=== PATIENT | female | born 1940 | race Caucasian/White ===

== ENCOUNTER 2018-04-07 12:24 | Outpatient (CLI) | payer MEDICARE, OTHER ==
--- NOTE | 2018-04-07 13:58 | NM ---
VQ SCAN: HISTORY: Shortness of breath. TECHNIQUE: Ventilation/perfusion scan was performed using 25.8 mCi Xenon-133 by inhalation for the ventilation s tudy followed by the intravenous administration of 6.6 mCi technetium-99m MAA for the perfusion scan. FINDINGS: Fairly homogeneous tracer distribution is seen in the lungs bilaterally on ventilation and perfusion scans. No mismatched pleural based, wedge shaped, segmental/subsegmental perfusion defects are seen. There is mild tracer retention and washout phase of the ventilation exam. IMPRESSION: Very low probability for pulmonary embolism. POS: [facility]
--- NOTE | 2018-04-07 14:26 | RAD ---
PA AND LATERAL VIEWS CHEST: Date: 04/07/18 HISTORY: Shortness of breath. FINDINGS: The heart size is mildly enlarged. The aorta is tortuous and the lungs are expanded without lobar con solidation, pneumothorax, gulshan pulmonary edema, or pleural effusions. Bones are osteopenic. IMPRESSION: Mild cardiomegaly. POS: [facility]
== END 2018-04-07 12:25 | disposition home or self-care (01) ==
LOC: NM 12:24
PROVIDERS: ATTEND Internal Medicine Cardiovascular Disease
DX: R06.02 Shortness of breath (principal); I51.7 Cardiomegaly
CPT/HCPCS: 71046; 78582; A9540; A9558

== ENCOUNTER 2018-04-18 22:26 | Inpatient (IN) | payer MEDICARE, OTHER ==
--- NOTE | 2018-04-18 23:09 | RAD ---
PORTABLE CHEST: 04/18/18 HISTORY: Dyspnea. Heart size appears slightly enlarged. There are atherosclerotic changes of the aorta. The lungs show some chronic change. No focal infiltrates or failure. Old right humeral neck fracture is noted. IMPRESSION: Cardiomegaly. No acute findings. POS: [facility]
[2018-04-18 23:17] LABS: Hemoglobin 12.1 g/dL (12.0-16.0); Lymphocytes 14 % (21-51); MDiff Complete? YES; Mean Corpuscular Hemoglobin 31.1 pg (27.0-31.0); Mean Corpuscular Volume 94.2 fL (78.0-98.0); Mean Platelet Volume 10.6 fL (7.4-10.4); Monocytes 6 % (0-10); Neutrophil 80 % (42-75); PLT Morphology Comment Appears Decreased; Platelet Count 116 thou/uL (130-400); RBC Distribution Width 12.8 % (11.5-14.5); RBC Morphology Normal; Red Blood Cell (RBC) Count 3.89 mill/uL (4.20-5.40); White Blood Cell (WBC) Count 10.4 thou/uL (4.8-10.8)
[2018-04-18 23:21] LABS: ALT (SGPT) 21 U/L (8-55); AST (SGOT) 35 U/L (5-34); Albumin 3.6 g/dL (3.4-4.8); Alkaline Phosphatase 98 U/L (40-150); Anion Gap 19 mmol/L (10-20); BUN (Urea Nitrogen) 55 mg/dL (9.8-20.1); Bilirubin, Total 2.6 mg/dL (0.2-1.2); Calc. Creatinine Clearance 0 mL/min (70-130); Calcium 9.2 mg/dL (7.8-10.44); Carbon Dioxide 18 mmol/L (23-31); Chloride 95 mmol/L (98-107); Estimated GFR-MDRD 40; Globulin 3.8 g/dL (2.4-3.5); Glucose 121 mg/dL (83-110); Potassium 3.7 mmol/L (3.5-5.1); Protein, Total 7.4 g/dL (6.0-8.3); Sodium 128 mmol/L (136-145)
[2018-04-18 23:24] LABS: CKMB 0.4 ng/mL (0-6.6); Troponin I Less than 0.010 ng/mL (< 0.028)
[2018-04-18] MEDS ORDERED: Acetaminophen 500 MG TAB ONE (23:31)
[2018-04-19] MEDS ORDERED: Azithromycin 500 MG VIAL ONE (00:28)
[2018-04-19] MEDS ORDERED: cefTRIAXone\\ROCEPHIN 1 GM VIAL ONE (00:28)
[2018-04-19 01:40] VITALS: BMI 41.6
[2018-04-19] MEDS ORDERED: Acetaminophen 325 MG TAB PO PRN (01:42)
[2018-04-19 02:49] LABS: Troponin I Less than 0.010 ng/mL (< 0.028)
[2018-04-19] MEDS ORDERED: Furosemide 40 MG TAB PO PRN (04:45)
[2018-04-19] MEDS: Levothyroxine Sodium 125 MCG TAB PO SCH (06:11)
[2018-04-19 06:12] LABS: Albumin 3.3 g/dL (3.4-4.8); Anion Gap 15 mmol/L (10-20); BUN (Urea Nitrogen) 51 mg/dL (9.8-20.1); BUN/Creatinine Ratio 42.15; Calc. Creatinine Clearance 65 mL/min (70-130); Calcium 8.8 mg/dL (7.8-10.44); Carbon Dioxide 22 mmol/L (23-31); Chloride 97 mmol/L (98-107); Estimated GFR-MDRD 43; Glucose 112 mg/dL (83-110); Phosphorus 3.4 mg/dL (2.3-4.7); Potassium 3.1 mmol/L (3.5-5.1); Sodium 131 mmol/L (136-145)
[2018-04-19 06:16] LABS: Troponin I Less than 0.010 ng/mL (< 0.028)
[2018-04-19] MEDS: Aspirin 81 mg Enteric Coated Tablet PO SCH (08:16)
[2018-04-19] MEDS: FLUoxetine HCl 20 MG CAP PO SCH (08:16)
[2018-04-19] MEDS: Amlodipine 10 MG TAB PO SCH (08:16)
[2018-04-19] MEDS: Atorvastatin Calcium 20 MG TAB PO SCH (08:16)
[2018-04-19] MEDS: Carvedilol 6.25 MG TAB PO SCH ×2 (08:17→19:48)
[2018-04-19] MEDS ORDERED: Famotidine/PF 20 mg/2ml Vial SLOW IVP SCH (09:00)
[2018-04-19] MEDS: Sodium Chloride 0.9% 1,000 ML IV SCH (12:42)
--- NOTE | 2018-04-19 15:51 | HP ---
REASON FOR ADMISSION: Severe dehydration, acute kidney injury, hyponatremia, hypokalemia, metabolic acidosis. HISTORY OF PRESENT ILLNESS: The patient gives a history of having watery diarrhea, nearly 6-7 times for 3 days, which started around last Saturday. Subsequently, the patient lost her appetite and also d eveloped fever and generalized weakness. She normally ambulates by herself, which she was not able t o do. As patient got very weak, she was brought to the emergency room by her . Currently, holcomb s no abdominal pain, nausea, or vomiting. The patient states she has not had a bowel movement after . The patient has not had much intake as well. No complaints of chest pain, palpitation, PN D, or orthopnea. Currently, had a fever of 99.7 degrees Fahrenheit. The patient has had a stress test done [address] Carrera's office, which was negative. Emily reyes has had a recent V/Q scan done in the first 10 days of this month, which showed low probability for PE. PAST MEDICAL AND SURGICAL HISTORY: Hypertension, dyslipidemia, depression, hypothyroidism, appendect armani, tonsillectomy, left breast biopsy. CURRENT MEDICATIONS: The patient is on valsartan 320 mg p.o. daily, atorvastatin 20 mg daily, carved ilol 12.5 mg twice daily, aspirin 81 mg daily, Nexium 40 mg daily, Norvasc 10 mg daily, fluoxetine 20 mg daily, levothyroxine 125 mcg daily, Lasix 40 mg daily. ALLERGIES: No known drug allergies. PERSONAL HISTORY: Does not abuse alcohol or drugs. No history of smoking. FAMILY HISTORY: Mother at the age of 56 years due to postop infection. Father at the age of 75 years. He has had history of likely prostate cancer with bone mets. He had a brother, who d of a stroke and had coronary artery disease at the age of 65 years. CODE STATUS: FULL. Power of compliance counsel is her . REVIEW OF SYSTEMS: The following complete review of systems was negative, unless otherwise mentioned in the HPI or below: Constitutional: Weight loss or gain, ability to conduct usual activities. Sk in: Rash, itching. Eyes: Double vision, pain. ENT/Mouth: Nose bleeding, neck stiffness, pain, te nderness. Cardiovascular: Palpitations, dyspnea on exertion, orthopnea. Respiratory: Shortness of breath, wheezing, cough, hemoptysis, fever, or night sweats. Gastrointestinal: Poor appetite, abdo bandar pain, heartburn, nausea, vomiting, constipation, or diarrhea. Genitourinary: Urgency, frequen cy, dysuria, nocturia. Musculoskeletal: Pain, swelling. Neurologic/Psychiatric: Anxiety, depressi on. Allergy/Immunologic: Skin rash, bleeding tendency. PHYSICAL EXAMINATION: GENERAL: The patient is a 77-year-old female, who currently feels exhausted, otherwise she is not in any acute distress. VITAL SIGNS: Blood pressure 146/64, pulse 80 per minute, respiratory rate is 20 per minute, temperat ure 99.1 degrees Fahrenheit, saturating 97% on 2 liters nasal cannula. NECK: Supple, no elevated JVD. HEENT: Eyes: Extraocular muscles intact. Pupils reacting to light. Oral Cavity: Mucous membranes are dry. No exudates or congestion. CARDIOVASCULAR SYSTEM: S1 and S2 heard. Regular rhythm. RESPIRATORY SYSTEM: Air entry 1+ bilaterally. No rales or rhonchi. ABDOMEN: Soft, bowel sounds heard. No tenderness, rigidity, or guarding. EXTREMITIES: No peripheral edema or calf tenderness. VASCULAR SYSTEM: Peripheral pulses 1+ bilateral, no ischemic ulcerations or gangrene. CENTRAL NERVOUS SYSTEM: No gross focal deficits noted. Patient is alert and oriented well at [facility]. PSYCHIATRIC SYSTEM: The patient's mood is euthymic. No hallucinations or delusions. LABORATORY AND X-RAY FINDINGS: White count of 10, H and H 12 and 36, platelet count is 116 with 80% neutrophils. Sodium 128, serum bicarbonate 18, BUN 55, creatinine 1.3, serum glucose 121, total bili hamilton 2.6, AST 35, ALT 21. Troponin x2 is negative. CK-MB 0.4. BNP 73, albumin is 3.6. Chest x-ra y done shows cardiomegaly with no acute infiltrate. EKG done shows bifascicular block with normal sinus rhythm at 93 beats per minute. There is Q-wave s een in lead II, III, AVF. CLINICAL IMPRESSION AND PLAN: The patient will be under observation on telemetry for severe dehydrat ion, acute kidney injury, hyponatremia, metabolic acidosis. She will be gently hydrated with normal saline at 75 mL per hour. We will continue on Norvasc, aspirin, Lipitor, Coreg, Prozac, Synthroid as before. CT of the abdomen and pelvis will be obtained. If needed, a right upper quadrant ultrasoun d will be obtained in view of patient's ongoing fever. Blood cultures will be obtained as well. We will obtain an echo with 2D Doppler for LV function. I have given complete updates to patient and he r son, Dr. Meadows, as well. We will continue to closely monitor her on telemetry.
--- NOTE | 2018-04-19 16:01 | CT ---
NONCONTRAST CT ABDOMEN AND PELVIS 04/19/18 HISTORY: Recent diarrhea. Renal insufficiency. Generalized abdominal pain. History of appendicectomy. COMPARISON: None available. FINDINGS: There is bibasilar atelectasis and/or scarring. Small hiatal hernia is noted. Vascular calcifications are present within the abdominal aorta and involving the iliac arteries. Calc ified granuloma is seen in the spleen. Increased density is seen layering dependently within the gallbladder lumen which may be related to m ultiple gallbladder calculi and/or sludge. There is a small amount of fluid adjacent to the gallbladd er as well. No definite renal or ureteral calculi are seen bilaterally. There is bilateral perinephric stranding slightly asymmetrically greater on the left which is overall nonspecific. There is also periureteral stranding present on the left. While there are calcifications seen adjacent to the left ureter, these calcifications are felt to be vascular in origin and not related to ureteral calculi. There is no hy dronephrosis present. The pancreas, bilateral adrenal glands, incompletely imaged urinary bladder demonstrate a normal CT a ppearance. The uterus is small in size. A 4.3 cm right adnexal cystic structure is present which on noncontraste d imaging does demonstrate fluid attenuation and may represent an ovarian cyst. The opacified bowel is normal in caliber. There is colonic diverticulosis probably involving the descending and sigmoid colon without CT findin gs to suggest diverticulitis. IMPRESSION: 1. No renal or ureteral calculi are visualized, and there is no hydronephrosis. However, there i s slightly asymmetric left perinephric stranding as well as stranding along the course of the left ur eter. Infection on the left related to pyelonephritis cannot be entirely excluded. 2. Right adnexal cystic lesion measuring 4.3 cm. This does demonstrate fluid attenuation. 3. Bibasilar atelectasis. 4. Colonic diverticulosis. 5. Compression fracture superior end plate L1 vertebral body stable since chest x-ray in 2017. 6. Small fat containing umbilical hernia. POS: [facility]
[2018-04-19] MEDS: Cefepime 1 GM in Sodium Chloride 0.9% 100 ML IVPB SCH (17:50)
[2018-04-20] MEDS: Sodium Chloride 0.9% 1,000 ML IV SCH ×2 (03:47→14:36)
[2018-04-20] MEDS: Levothyroxine Sodium 125 MCG TAB PO SCH (05:03)
[2018-04-20] MEDS: Cefepime 1 GM in Sodium Chloride 0.9% 100 ML IVPB SCH ×2 (05:04→17:53)
--- NOTE | 2018-04-20 08:04 | ULT ---
ABDOMINAL ULTRASOUND: DATE: 04/20/18. HISTORY: Recurrent diarrhea, generalized abdominal pain for 3 days[address] Ren[address] insufficiency. Abnormal CT examina tion involving the gallbladder. COMPARISON: CT abdomen on 04/19/18. FINDINGS: There is echogenic material layering dependently within the gallbladder lumen. No shadowing is appre ciated, and findings may b related to gallbladder sludge. There is evidence of gallbladder wall thic kening with gallbladder wall edema. The gallbladder wall measures 0.6 cm in thickness. There is a s mall amount of adjacent pericholecystic fluid. The common duct measures 0.6 cm in diameter, which is within normal limits for the patient's age. The liver demonstrates normal sonographic appearance but is enlarged in craniocaudal dimensions measu ring 26 cm. Visualized portions of the pancreas, visualized portions of the IVC, and proximal as wel l as mid abdominal aorta demonstrating normal sonographic appearance. The distal abdominal aorta is obscured by bowel gas. The spleen is enlarged in craniocaudal dimensions measuring 15.5 cm. This was also present on the CT examination, although the spleen does not appear enlarged in AP or transverse dimensions. The left kidney measures 14.6 cm in length. There is an echogenic mass seen with the junction in the mid portion and superior pole of the left kidney. There is a suggestion of a subtle hypodense area within this region on the CT exam. CT following renal mass protocol is recommended for further evalu ation. The right kidney demonstrates a normal sonographic appearance and measures 13.7 cm in length. IMPRESSION: 1. Echogenic left renal mass. No fat density mass is seen on the recent CT scan examination, but th ere is a subtle hypodense area within the left kidney on the prior CT exam. Neoplastic process could not be entirely excluded, and a CT abdomen with and without IV contrast is recommended for further e valuation. However, if the patient has renal insufficiency, MRI without IV contrast may be beneficia l, although contrast may be warranted for accurate characterization. 2. Gallbladder sludge as well as gallbladder wall thickening and edematous gallbladder wall with adj acent tiny amount of pericholecystic fluid. Findings are worrisome for cholecystitis in the correct clinical scenario. 3. Hepatosplenomegaly. POS: [facility]
[2018-04-20] MEDS: Amlodipine 10 MG TAB PO SCH (08:42)
[2018-04-20] MEDS: Carvedilol 6.25 MG TAB PO SCH ×2 (08:43→20:27)
[2018-04-20] MEDS: Atorvastatin Calcium 20 MG TAB PO SCH (08:43)
[2018-04-20] MEDS: Aspirin 81 mg Enteric Coated Tablet PO SCH (08:43)
[2018-04-20] MEDS: FLUoxetine HCl 20 MG CAP PO SCH (08:43)
--- NOTE | 2018-04-20 12:42 | PDOC.PN ---
- Subjective Encounter Start Date: 04/20/18 Encounter Start Time: 10:30 Subjective: feels better -: has sob which is chronic per patient -: mild abd pain in left loin area - Objective MAR Reviewed: Yes Vital Signs & Weight: Vital Signs (12 hours) Temp Pulse Pulse Pulse Resp BP BP 04/20/18 09:20 78 80 172/74 H 04/20/18 08:44 97.7 F 79 20 04/20/18 08:43 152/67 H 04/20/18 08:42 78 04/20/18 05:27 04/20/18 03:13 98.7 F 78 24 H BP BP Pulse Ox 04/20/18 09:20 188/79 H 04/20/18 08:44 137/64 95 04/20/18 08:43 04/20/18 08:42 04/20/18 05:27 95 04/20/18 03:13 155/69 H 95 Weight Weight 236 lb 3.2 oz I&O: 04/19/18 04/20/18 04/21/18 06:59 06:59 06:59 Intake Total 300 2666 Output Total 600 1600 400 Balance -300 1066 -400 Result Diagrams: 04/18/18 22:37 04/19/18 05:46 Phys Exam - Physical Examination HEENT: PERRLA, moist MMs Neck: no JVD, supple Respiratory: no wheezing, no rales Cardiovascular: RRR, no significant murmur Gastrointestinal: soft, no distention, positive bowel sounds no ruq tenderness, no rigidity or gurarding Musculoskeletal: no edema, pulses present Neurological: non-focal, moves all 4 limbs Psychiatric: normal affect, A&O x 3 Dx/Plan (1) Sepsis Code(s): A41.9 - SEPSIS, UNSPECIFIED ORGANISM Status: Acute (2) Bacteremia Code(s): R78.81 - BACTEREMIA Status: Acute Comment: klebsiella (3) Acute pyelonephritis Code(s): N10 - ACUTE PYELONEPHRITIS Status: Acute Comment: left (4) Acute cholecystitis Code(s): K81.0 - ACUTE CHOLECYSTITIS Status: Acute (5) HTN (hypertension) Code(s): I10 - ESSENTIAL (PRIMARY) HYPERTENSION Status: Chronic Qualifiers: Hypertension type: essential hypertension Qualified Code(s): I10 - Essential (primary) hypertension (6) Obesity Code(s): E66.9 - OBESITY, UNSPECIFIED Status: Chronic Qualifiers: Obesity classification: adult class 3 (BMI >= 40) Body mass index: BMI 40.0 -44.9 (7) LEANA (acute kidney injury) Code(s): N17.9 - ACUTE KIDNEY FAILURE, UNSPECIFIED Status: Acute Comment: resolving (8) Metabolic acidosis Code(s): E87.2 - ACIDOSIS Status: Acute Comment: resolving - Plan is on cefepime and levaquin -: gentle iv hydration -: keep pt npo until evaluates her -: i.spirometry, nebs, pulm consultation in view of possible postop complicati -: -on if she did go for lap nelly with baseline sob/obesity * . Review of Systems - Medications/Allergies Allergies/Adverse Reactions: Allergies Allergy/AdvReac Type Severity Reaction Status Date / Time No Known Allergies Allergy Verified 04/19/18 02:19 Medications: Current Medications Albuterol/Ipratropium (Duoneb) 3 ml NEB [id number] [facility] Amlodipine Besylate (Norvasc) 10 mg PO DAILY [facility] Last Admin: 04/20/18 08:42 Dose: 10 mg Aspirin (Ecotrin) 81 mg PO DAILY [facility] Last Admin: 04/20/18 08:43 Dose: 81 mg Atorvastatin Calcium (Lipitor) 20 mg PO DAILY [facility] Last Admin: 04/20/18 08:43 Dose: 20 mg Carvedilol (Coreg) 12.5 mg PO BID [facility] Last Admin: 04/20/18 08:43 Dose: 12.5 mg Fluoxetine HCl (Prozac) 20 mg PO DAILY [facility] Last Admin: 04/20/18 08:43 Dose: 20 mg Sodium Chloride (Normal Saline 0.9%) 1,000 mls @ 75 mls/hr IV .[id number] [facility] Last Admin: 04/20/18 03:47 Dose: 1,000 mls Cefepime HCl 1 gm/ Sodium (Chloride) 100 mls @ 200 mls/hr IVPB 0600,1800 [facility] Last Admin: 04/20/18 05:04 Dose: 100 mls Levofloxacin 250 mg/ Device 50 mls @ 100 mls/hr IVPB 1700 [facility] Last Admin: 04/19/18 17:08 Dose: 50 mls Levothyroxine Sodium (Synthroid) 125 mcg PO 0600 [facility] Last Admin: 04/20/18 05:03 Dose: 125 mcg Pantoprazole Sodium (Protonix) 40 mg PO DAILY [facility] Last Admin: 04/20/18 08:43 Dose: 40 mg Sodium Chloride (Flush - Normal Saline) 10 ml IVF Q12HR [facility] Last Admin: 04/20/18 08:43 Dose: 10 ml Sodium Chloride (Flush - Normal Saline) 10 ml IVF PRN PRN PRN Reason: Saline Flush
[2018-04-20 13:18] LABS: #Eosinphils 0.1 thou/uL (0.0-0.7); #Lymphocytes 0.9 thou/uL (1.20-3.40); #Neutrophils 7.9 thou/uL (1.40-6.50); %Basophils 0.1 % (0.0-1.0); %Eosinophils 1.2 % (0.0-10.0); %Lymphocytes 9.3 % (21.0-51.0); %Monocytes 10.1 % (0.0-10.0); %Neutrophils 79.2 % (42.0-75.0); Hemoglobin 11.1 g/dL (12.0-16.0); Mean Corpuscular HGB CONC 32.6 g/dL (32.0-36.0); Mean Corpuscular Hemoglobin 31.1 pg (27.0-31.0); Mean Corpuscular Volume 95.3 fL (78.0-98.0); Mean Platelet Volume 10.1 fL (7.4-10.4); Platelet Count 120 thou/uL (130-400); RBC Distribution Width 12.8 % (11.5-14.5); Red Blood Cell (RBC) Count 3.55 mill/uL (4.20-5.40)
[2018-04-20 13:40] LABS: ALT (SGPT) 23 U/L (8-55); AST (SGOT) 25 U/L (5-34); Albumin 3.2 g/dL (3.4-4.8); Alkaline Phosphatase 97 U/L (40-150); Anion Gap 11 mmol/L (10-20); BUN (Urea Nitrogen) 28 mg/dL (9.8-20.1); Bilirubin, Total 1.2 mg/dL (0.2-1.2); Calc. Creatinine Clearance 94 mL/min (70-130); Calcium 8.6 mg/dL (7.8-10.44); Carbon Dioxide 25 mmol/L (23-31); Chloride 102 mmol/L (98-107); Estimated GFR-MDRD 66; Globulin 3.1 g/dL (2.4-3.5); Glucose 124 mg/dL (83-110); Potassium 3.5 mmol/L (3.5-5.1); Protein, Total 6.3 g/dL (6.0-8.3); Sodium 134 mmol/L (136-145)
--- NOTE | 2018-04-20 18:05 | CON ---
DATE OF CONSULTATION: 04/20/2018 REASON FOR CONSULTATION: Bacteremia. HISTORY OF PRESENT ILLNESS: This is a 77-year-old patient, who has a history of hypertension and some form of cardiomyopathy and was in her usual state of health until about 3-4 days before admission when she noticed frequent watery stools with anorexia and fever. Eventually, she became so weak that could not ambulate anymore and was brought for admission. Here, she had a BP 140/60, pulse 80, respirations 20, temperature 99.1, O2 sat 97%. The lung sounds were clear. Abdomen was soft without tenderness. Heart examination was normal. She was awake, looked tired, but otherwise in no acute distress. White cell count 10,000, hemoglobin 12, platelets 116 with 80% neutrophils. Sodium 128, creatinine 1.3, bilirubin 2.6, AST 35, ALT 21, albumin 3.6. Chest x-ray showed cardiomegaly, but no infiltrate. The patient had abdomen and pelvis CT and this demonstrated increased density layering in the gallbladder lumen and a small amount of fluid adjacent to gallbladder as well. There was evidence of bilateral perinephric stranding, slightly asymmetric on the left. No obstruction was noticed. There was a compression fracture at L1 endplate. An ultrasound of the abdomen was completed as well this morning. It showed echogenic left renal mass and some gallbladder sludge, gallbladder wall thickening, and edematous wall with adjacent amount of pericholecystic fluid and some hepatosplenomegaly. Currently, she is feeling better. She denies any headaches, no visual symptoms, sore throat, odynophagia, or dysphagia, no cough or sputum production, no abdominal pain. No genitourinary symptoms. PAST MEDICAL HISTORY: Includes hypertension; dyslipidemia; depression; hypothyroidism; appendectomy; tonsillectomy; breast biopsy, which was benign. MEDICATIONS: Currently on DuoNeb, Norvasc, Ecotrin, Lipitor, Coreg, cefepime, Levaquin, pantoprazole, IV fluids. ALLERGIES: None. SOCIAL HISTORY: Never smoker. FAMILY HISTORY: Prostate cancer, bone mets, coronary disease. PHYSICAL EXAMINATION: VITAL SIGNS: T-max 98.7, BP 170/74, pulse 79, respirations 20, O2 sat 95%. SKIN EXAM: Normal. There is no lymphadenopathy. Patient has a peripheral IV access. Voiding spontaneously. No lymphadenopathy. HEENT: Ocular movements are conjugate. Oral cavity with still quite a few teeth in place with some gum disease. NECK: Supple, no jugular venous distention. LUNGS: With bibasilar inspiratory crackles. ABDOMEN: There is no tenderness in the abdominal area, slightly distended. No ascites, no bladder distention. EXTREMITIES: No joint inflammatory activity. Pulses are 1+ in dorsalis pedis. Perfusion is good and extremities with good capillary refill. No edema. Moves extremities equally on command. NEUROLOGIC: Cognitive function appears to be intact. LABORATORY DATA: White cell count 10.4, hemoglobin 12, platelets 116. Sodium 131, creatinine 1.21. Urinalysis from September was done, which showed 11-20 wbc' s. I do not see any urinalysis done this time. Microbiology with 1 out 2 sets of blood cultures with Klebsiella pneumoniae. Urine culture with Klebsiella pneumoniae from 10/04/2017, but I do not see a urine culture for this admission ASSESSMENT: Hypertension and some form of cardiomyopathy, admitted with diarrhea, fever, and Klebsiella pneumoniae bacteremia. DISCUSSION: Differential diagnosis includes either biliary tract process with cholecystitis versus urinary tract infection. We will submit urinalysis, which was not sent on admission and urine culture. Consider HIDA scan. May need a surgical evaluation if she is felt to be a reasonable perioperative risk. [facility]
--- NOTE | 2018-04-20 19:30 | CON ---
DATE OF CONSULTATION: 04/20/2018 REASON FOR CONSULTATION: Possible cholecystitis. HISTORY: Ms. Meadows is a 77-year-old woman who came to the hospital with weakness and dehydration aft er 3 days of diarrhea. She received IV fluids and had improvement in her clinical status, but spiked fevers and had a persistent white count. Blood cultures have grown Klebsiella and a CT scan was obt ained to look for the source of her fever and leukocytosis. This was performed yesterday and showed bilateral perinephric stranding, greater on the left as well as some periureteral stranding on the le ft, but no hydronephrosis or obstructing calculi. She was also noted to have some fluid adjacent to the gallbladder as well as some sludge in the gallbladder. The patient states that she does not have any abdominal pain or nausea and has been eating without any problems except for when she had the di arrhea and could not eat. She was given solid food yesterday and did not have any problems with that . She denies any pain in her back. She does have some left-sided abdominal and chest pain, which odessa reyes says starts in her hand and radiate upper arm and down her side. She has attributed this to her ca rpal tunnel, but she did see her programming coordinator a couple of weeks ago due to concern that this could be cardiac. She states that he did a stress test and another test and that she got a verbal report wyatt t looked okay, but they were going to go over it in more detail last week. However, she missed that appointment because she was ill. She has to urinate fairly frequently and has some urge and stress in continence, but denies any dysuria or foul smell to her odor. PAST MEDICAL HISTORY: Hypertension, hyperlipidemia, hypothyroidism. PAST SURGICAL HISTORY: Breast biopsy, appendectomy and tonsillectomy. OUTPATIENT MEDICATIONS: Valsartan, atorvastatin, carvedilol, aspirin, Nexium, Norvasc, fluoxetine, S ynthroid, and Lasix. ALLERGIES: She has no known drug allergies. SOCIAL HISTORY: She does not smoke, drink or use illicit drugs. Her stepson is a physician here in town. FAMILY HISTORY: Prostate cancer, stroke and coronary artery disease. REVIEW OF SYSTEMS: Ten-system review of systems is negative except per HPI and the following. The p atient states that she has been having worsening problems with shortness of breath. She does not use oxygen at home, but is fairly sedentary and states that she becomes short of breath just with walkin g from room to room. PHYSICAL EXAMINATION: VITAL SIGNS: The patient had a low-grade fever in the emergency room up to 101.3, but has been afebr ile since her admission. Heart rate 74, respirations 24. She is 94% saturated on 2 liters nasal can nula, and blood pressure is 142/67. GENERAL: Reveals a morbidly obese, pleasant elderly woman in no acute distress. Her BMI is 41.8 and she is comfortable, resting in bed with oxygen in place. HEENT: Unremarkable. NECK: Supple, without lymphadenopathy or thyroid nodules. HEART: Regular in its rate and rhythm without murmurs, rubs or gallops. LUNGS: Clear to auscultation bilaterally, although breath sounds are distant due to body habitus. ABDOMEN: Soft and nondistended, without palpable masses or hernias. She has healed surgical incisio ns. She may have a small umbilical hernia, but this is difficult to determine on physical examinatio n, she has very mild tenderness in the right subcostal area just lateral to the xiphoid, but does not exhibit rigidity, rebound or guarding and has a negative Jane's test. She does not have any costo vertebral angle tenderness bilaterally. EXTREMITIES: Warm and well perfused with moderate ankle edema, which she states has been worse over the past few months. NEUROLOGIC: No focal deficits. PSYCHIATRIC: Alert, oriented, and appropriate. LABORATORY DATA: White count is normal at 10, although she does have a left shift of 75% neutrophils . Electrolytes are unremarkable and LFTs are normal, although she has had elevation of her bilirubin in the past. Her bilirubin on admission was 2.6 and is down to 1.2 today. AST was mildly elevated at 35 yesterday and is now 25, ALT and alkaline phosphatase have been normal throughout. CT and ultr asound are as per HPI. The ultrasound showed sludge, gallbladder wall thickening and edema with a sm all amount of pericholecystic fluid and the common duct was within normal limits for age. ASSESSMENT: 1. Klebsiella bacteremia. She has grown Klebsiella from her urine culture as well, so this could be due to pyelonephritis. However, her gallbladder also looks abnormal. She is not symptomatic from h er gallbladder in terms of GI symptoms. She did have the recent 3 days of diarrhea, but I do not thi nk this is due to her gallbladder since it was persistent despite not eating during that time. I thi nk this is more likely viral in nature. She has not had any fatty food intolerance or epigastric or right upper quadrant pain or nausea after eating. She is only very mildly tender to palpation in the right upper quadrant. At this point, cholecystitis is within the differential diagnosis, but her fe jessika and bacteremia could just well be due to her pyelonephritis. We discussed options. She reports that she recently had a normal cardiac workup, so I do not think she is an operative candidate and odessa reyes does have a very abnormal looking gallbladder on ultrasound and CT, so laparoscopic cholecystectomy could be considered. The main risks are just those of surgery, which include but are not limited to bleeding, infection, risks of anesthesia, damage to nearby structures including bowel, liver and jeffrey e duct, need for open surgery, need for other procedures. Other alternatives include just continue w ith antibiotic therapy, which is the primary treatment for pyelonephritis without obstruction. She d oes not appear to have any large obstructing gallstones, so this may be effective in treating cholecy stitis as well. However, if she has abnormal gallbladder function or stone disease, she may be at ri sk for repeat or recurrent episodes of cholecystitis. The third option is additional diagnostic test ing such as HIDA scan; however, I do not think that this is likely to be definitive. A normal HIDA s can would not completely rule out cholecystitis and an abnormal HIDA scan would not guarantee that is the source of her current illness. At this point, the patient and her family wish to proceed with m edical management with antibiotics. If she has any problems with pain or nausea with eating or if odessa reyes has recurrent episodes of fever, then she will consider laparoscopic cholecystectomy. I have order ed a low-fat diet for her for today and made her n.p.o. after midnight and I will check on her early tomorrow and if she has worsening symptoms and wishes to proceed with surgery, we will proceed with t hat; however, this current illness could be attributed to pyelonephritis given the positive urine cul tures and blood cultures with the same organism.
--- NOTE | 2018-04-20 20:25 | CON ---
DATE OF CONSULTATION: 04/20/2018 HISTORY OF PRESENT ILLNESS: This is a 77-year-old morbidly obese female, who weighs 108 kilograms ab out 230 pounds. Sats are 96% on room air, blood pressure was 210/86 in the ER, temperature is 99, re spiratory rate 16. She presents with several day history of diarrhea, loose stools, weakness, and sh ortness of breath. She saw a wood cutter recently, had a stress test done apparently an echo and a ventilation perfusio n lung scan, which I personally reviewed was negative. She had a chest x-ray taken, which also shows slight increase in markings, but no acute infiltrates. She has never smoked, though she repeatedly tells me she was exposed to a second hand smoke from her first of 19 years. She can barely w alk 100 feet without getting markedly short of breath. Six months ago, she could walk half a block. She wheezes from time to time she says, but no diagnosis of asthma, pneumonia, or TB. Recently several days of diarrhea for 3 days cause her to be markedly short of breath. PAST MEDICAL HISTORY: Pertinent for presumed congestive heart failure, hypothyroidism, hyperlipidemi a, hypertension, obesity, sleep apnea, poor compliance, does not use machine for 10 years because of claustrophobia. PAST SURGICAL HISTORY: Apparently none. She has had a workup outpatient including a CT of the abdom en and pelvis, which shows a chronic diverticulitis, basilar atelectasis. Chest x-ray normal except for cardiomegaly. Tobacco, none. Alcohol, none. SOCIAL HISTORY: She worked for the [employer]. No asbestos exposure, her present worked for [employer]. MEDICATIONS: Her list of medicine from home includes Diovan 320, Synthroid 125, Lasix 40, Flonase, P rozac 20, Nexium 20, Coreg 12.5, Lipitor 20, aspirin, and Norvasc 10. ALLERGIES: None. REVIEW OF SYSTEMS: Otherwise, 10-point negative. PHYSICAL EXAMINATION: VITAL SIGNS: Blood pressure is 180/79. Sats are 95% on 2 liters, respiration 20, temperature 97. CHEST: Crackles one-third way up the chest bilaterally. CARDIOVASCULAR: Normal S1 and S2, no gallops. ABDOMEN: Soft without any mass. EXTREMITIES: No edema. LABORATORY DATA: Blood cultures surprisingly including Klebsiella. White count is 10,000, H&H 12 an d 36, platelet count is low at 116, it has been normal in the past. A renal function shows a creatin ine 1.21. BUN is 51. Sodium 131, potassium 3.1. Thyroid function was normal. IMPRESSION: 1. Dyspnea, probably secondary to diastolic dysfunction. 2. Azotemia, probably prerenal. 3. Sleep apnea. 4. Klebsiella sepsis. 5. Sleep apnea. Most of her dyspnea is probably severe deconditioning and probably congestive heart failure. I am aw aiting results of the echo, I would discontinue the Lasix. Agree with present antibiotics until we a ssess . I empirically start on some neb treatments. Await results of the echocardiogram. May consider doing a high risk CT to rule out interstitial lung disease. We will discuss and follow.
[2018-04-21 05:37] LABS: #Eosinphils 0.1 thou/uL (0.0-0.7); #Lymphocytes 1.2 thou/uL (1.20-3.40); #Monocytes 0.8 thou/uL (0.11-0.59); #Neutrophils 7.5 thou/uL (1.40-6.50); %Eosinophils 1.4 % (0.0-10.0); %Lymphocytes 12.5 % (21.0-51.0); %Monocytes 8.5 % (0.0-10.0); %Neutrophils 77.6 % (42.0-75.0); Hemoglobin 11.2 g/dL (12.0-16.0); Mean Corpuscular HGB CONC 33.7 g/dL (32.0-36.0); Mean Corpuscular Hemoglobin 32.2 pg (27.0-31.0); Mean Corpuscular Volume 95.6 fL (78.0-98.0); Mean Platelet Volume 10.1 fL (7.4-10.4); Platelet Count 153 thou/uL (130-400); RBC Distribution Width 12.8 % (11.5-14.5); Red Blood Cell (RBC) Count 3.49 mill/uL (4.20-5.40); White Blood Cell (WBC) Count 9.7 thou/uL (4.8-10.8)
[2018-04-21] MEDS: Cefepime 1 GM in Sodium Chloride 0.9% 100 ML IVPB SCH ×2 (05:37→17:47)
[2018-04-21] MEDS: Levothyroxine Sodium 125 MCG TAB PO SCH (05:38)
[2018-04-21] MEDS: Sodium Chloride 0.9% 1,000 ML IV SCH (05:40)
[2018-04-21 05:48] LABS: ALT (SGPT) 24 U/L (8-55); AST (SGOT) 27 U/L (5-34); Albumin 3.3 g/dL (3.4-4.8); Alkaline Phosphatase 98 U/L (40-150); Anion Gap 12 mmol/L (10-20); BUN (Urea Nitrogen) 20 mg/dL (9.8-20.1); Bilirubin, Total 1.1 mg/dL (0.2-1.2); Calc. Creatinine Clearance 103 mL/min (70-130); Calcium 9.1 mg/dL (7.8-10.44); Carbon Dioxide 24 mmol/L (23-31); Chloride 104 mmol/L (98-107); Estimated GFR-MDRD 74; Globulin 3.3 g/dL (2.4-3.5); Glucose 123 mg/dL (83-110); Potassium 3.5 mmol/L (3.5-5.1); Protein, Total 6.6 g/dL (6.0-8.3); Sodium 136 mmol/L (136-145)
[2018-04-21] MEDS: Aspirin 81 mg Enteric Coated Tablet PO SCH (09:04)
[2018-04-21] MEDS: Carvedilol 6.25 MG TAB PO SCH ×2 (09:04→21:14)
[2018-04-21] MEDS: Atorvastatin Calcium 20 MG TAB PO SCH (09:04)
[2018-04-21] MEDS: Amlodipine 10 MG TAB PO SCH (09:04)
[2018-04-21] MEDS: FLUoxetine HCl 20 MG CAP PO SCH (09:05)
--- NOTE | 2018-04-21 10:13 | PDOC.PN ---
- Subjective Encounter Start Date: 04/21/18 Encounter Start Time: 09:00 Subjective: is feeling better -: no chest pain or abd pain - Objective MAR Reviewed: Yes Vital Signs & Weight: Vital Signs (12 hours) Temp Pulse Resp BP BP Pulse Ox 04/21/18 09:04 77 148/71 H 04/21/18 07:20 98 F 77 18 148/71 H 95 04/21/18 06:38 76 16 96 04/21/18 04:00 98.1 F 80 12 127/60 97 04/20/18 23:14 96 Weight Weight 242 lb 14.4 oz I&O: 04/20/18 04/21/18 04/22/18 06:59 06:59 06:59 Intake Total 2666 950 Output Total 1600 700 Balance 1066 250 Result Diagrams: 04/21/18 05:05 04/21/18 05:05 Phys Exam - Physical Examination HEENT: PERRLA, moist MMs Neck: no JVD, supple Respiratory: no wheezing, no rales Cardiovascular: RRR, no significant murmur Gastrointestinal: soft, no distention, positive bowel sounds Musculoskeletal: no edema, pulses present Neurological: non-focal, moves all 4 limbs Psychiatric: normal affect, A&O x 3 Dx/Plan (1) Sepsis Code(s): A41.9 - SEPSIS, UNSPECIFIED ORGANISM Status: Acute (2) Bacteremia Code(s): R78.81 - BACTEREMIA Status: Acute Comment: klebsiella (3) Acute pyelonephritis Code(s): N10 - ACUTE PYELONEPHRITIS Status: Acute Comment: left (4) Acute cholecystitis Code(s): K81.0 - ACUTE CHOLECYSTITIS Status: Acute (5) HTN (hypertension) Code(s): I10 - ESSENTIAL (PRIMARY) HYPERTENSION Status: Chronic Qualifiers: Hypertension type: essential hypertension Qualified Code(s): I10 - Essential (primary) hypertension (6) Obesity Code(s): E66.9 - OBESITY, UNSPECIFIED Status: Chronic Qualifiers: Obesity classification: adult class 3 (BMI >= 40) Body mass index: BMI 40.0 -44.9 (7) LEANA (acute kidney injury) Code(s): N17.9 - ACUTE KIDNEY FAILURE, UNSPECIFIED Status: Acute Comment: resolving (8) Metabolic acidosis Code(s): E87.2 - ACIDOSIS Status: Acute Comment: resolving - Plan is on cefepime and levaquin -: asp, lipitor and coreg -: ef is 55% with diastolic dysfunction -: urine cs shows no growth -: await gen surgery and family's opinion * . Review of Systems - Medications/Allergies Allergies/Adverse Reactions: Allergies Allergy/AdvReac Type Severity Reaction Status Date / Time No Known Allergies Allergy Verified 04/19/18 02:19 Medications: Current Medications Albuterol/Ipratropium (Duoneb) 3 ml NEB [id number] [facility] Last Admin: 04/21/18 06:38 Dose: 3 ml Amlodipine Besylate (Norvasc) 10 mg PO DAILY [facility] Last Admin: 04/21/18 09:04 Dose: 10 mg Aspirin (Ecotrin) 81 mg PO DAILY [facility] Last Admin: 04/21/18 09:04 Dose: 81 mg Atorvastatin Calcium (Lipitor) 20 mg PO DAILY [facility] Last Admin: 04/21/18 09:04 Dose: 20 mg Carvedilol (Coreg) 12.5 mg PO BID [facility] Last Admin: 04/21/18 09:04 Dose: 12.5 mg Fluoxetine HCl (Prozac) 20 mg PO DAILY [facility] Last Admin: 04/21/18 09:05 Dose: 20 mg Sodium Chloride (Normal Saline 0.9%) 1,000 mls @ 75 mls/hr IV .[id number] [facility] Last Admin: 04/21/18 05:40 Dose: 1,000 mls Cefepime HCl 1 gm/ Sodium (Chloride) 100 mls @ 200 mls/hr IVPB 0600,1800 [facility] Last Admin: 04/21/18 05:37 Dose: 100 mls Levofloxacin 250 mg/ Device 50 mls @ 100 mls/hr IVPB 1700 [facility] Last Admin: 04/20/18 15:58 Dose: 50 mls Levothyroxine Sodium (Synthroid) 125 mcg PO 0600 [facility] Last Admin: 04/21/18 05:38 Dose: 125 mcg Pantoprazole Sodium (Protonix) 40 mg PO DAILY [facility] Last Admin: 04/21/18 09:05 Dose: 40 mg Sodium Chloride (Flush - Normal Saline) 10 ml IVF Q12HR [facility] Last Admin: 04/21/18 09:03 Dose: Not Given Sodium Chloride (Flush - Normal Saline) 10 ml IVF PRN PRN PRN Reason: Saline Flush
--- NOTE | 2018-04-21 10:14 | PRG ---
DATE OF SERVICE: 04/21/2018 This morning she is better. She is less short of breath. PHYSICAL EXAMINATION: VITAL SIGNS: Sats are 95 on 2 liters, temperature 98, blood pressure 140/71. CHEST: Chest reveals decreased breath sounds bilaterally. CARDIAC: Normal S1, S2, no gallops. ABDOMEN: Soft, no masses. LABORATORY DATA: Blood culture growing Klebsiella sensitive to present antibiotics. IMPRESSION: 1. Morbidly obese. 2. Mainly a restrictive pulmonary impairment, a nonsmoker. 3. Probably sleep apnea. 4. Klebsiella bacteremia. 5. Urinary tract infection. 6. Gallbladder disease. PLAN: Pulmonary-george, I think she should be able to tolerate general anesthesia for her gallbladder surgery. She is on antibiotics. I have added PFT for baseline purposes which hopefully can be done in the day or two. I will follow.
--- NOTE | 2018-04-21 15:06 | PDOC.GSPN ---
Surgery Progress Note: Subj - Subjective Narrative: Patient is feeling fine. She is not having any pain or nausea and does not want to proceed with laparoscopic cholecystectomy. Afebrile, vital signs stable. Very minimal sensitivity to palpation in the right upper quadrant. White count and LFTs normal. Assessment/plan: Fever, potentially due to pyelonephritis or cholecystitis. Responding to antibiotics and patient is not interested in pursuing laparoscopic cholecystectomy at this time. I recommended she stay on a low-fat diet for a few months. If she has recurrence of her fever or develops abdominal pain or nausea I would recommend that she proceed with surgery. Surgery Progress Note: Obj - Vital signs Vital signs: Vital Signs - Most Recent Temp Pulse Resp BP Pulse Ox 98 F 72 18 149/70 H 98 04/21/18 11:55 04/21/18 13:13 04/21/18 13:13 04/21/18 11:55 04/21/18 13:13 Surgery Progress Note: Results - Labs Result Diagrams: 04/21/18 05:05 04/21/18 05:05 Lab results: Laboratory Results - last 24 hr 04/21/18 04/21/18 05:05 05:05 WBC 9.7 RBC 3.49 L Hgb 11.2 L Hct 33.3 L MCV 95.6 MCH 32.2 H MCHC 33.7 RDW 12.8 Plt Count 153 MPV 10.1 Neutrophils % 77.6 H Lymphocytes % 12.5 L Monocytes % 8.5 Eosinophils % 1.4 Basophils % 0.0 Neutrophils # 7.5 H Lymphocytes # 1.2 Monocytes # 0.8 H Eosinophils # 0.1 Basophils # 0.0 Sodium 136 Potassium 3.5 Chloride 104 Carbon Dioxide 24 Anion Gap 12 BUN 20 Creatinine 0.76 Estimated GFR (MDRD) 74 Glucose 123 H Calcium 9.1 Total Bilirubin 1.1 AST 27 ALT 24 Alkaline Phosphatase 98 Serum Total Protein 6.6 Albumin 3.3 L Globulin 3.3 Albumin/Globulin Ratio 1.0 L
[2018-04-22] MEDS: Cefepime 1 GM in Sodium Chloride 0.9% 100 ML IVPB SCH (05:28)
[2018-04-22] MEDS: Levothyroxine Sodium 125 MCG TAB PO SCH (05:28)
--- NOTE | 2018-04-22 07:18 | PRG ---
DATE OF SERVICE: 04/21/2018 Ms. Meadows is sitting up eating dinner. There is no distress. Denies any pain, no respiratory symptoms, no diarrhea. PHYSICAL EXAMINATION: VITAL SIGNS: With slight tachycardia, otherwise afebrile. BP 144/64. HEENT: Ocular movements conjugate. HEART: S1, S2, regular rate. ABDOMEN: The abdomen is mildly distended, not tender consistent. LUNGS: Symmetric clear breath sounds. LABORATORY: White cell count is 9.7, hemoglobin 11.2, platelets 153. Sodium 136, creatinine 0.76, albumin 3.3. Liver profile normal. Microbiology with Klebsiella pneumoniae which has a garcía-susceptible profile. ASSESSMENT AND DISCUSSION: Hypertension, cardiomyopathy. Is admitted with diarrhea, fever, Klebsiella pneumonia bacteremia. The differential diagnosis includes urinary tract infection versus cholecystitis, the patient has been evaluated by Surgery and conservative management strategy has been discussed with the patient. At this point, we will recommend switching to oral quinolone and treat for approximately 2-3 weeks. Follow up ultrasound of the gallbladder. Actually may need a laparoscopic cholecystectomy. The possibility of UTI is also considered, but I believe the findings in the CT scan are more consistent with just edema associated with cardiomyopathy. MTDD
--- NOTE | 2018-04-22 09:43 | PRG ---
DATE OF SERVICE: 04/22/2018 Ms. Meadows is a morbidly obese female. This morning she says she is better. She got some epistaxis, probably from nasal O2 causing some dryness. PHYSICAL EXAMINATION: VITAL SIGNS: Sats at 97 apparently on room air, respiration rate 18, temperature 98, blood pressure is 149/69. CHEST: Decreased breath sounds without any wheezing. CARDIAC: Normal S1-S2. No gallops. ABDOMEN: Soft, no masses. IMPRESSION: 1. Klebsiella sepsis, probably urinary tract infection. Possibly gallbladder. 2. Morbid obesity. 3. Sleep apnea. 4. Hypoventilation syndrome. PLAN: Her PFTs ordered today. Discontinue O2. Continue neb treatments. Outpatient sleep study.
[2018-04-22] MEDS: Aspirin 81 mg Enteric Coated Tablet PO SCH (10:08)
[2018-04-22] MEDS: Amlodipine 10 MG TAB PO SCH (10:08)
[2018-04-22] MEDS: Atorvastatin Calcium 20 MG TAB PO SCH (10:08)
[2018-04-22] MEDS: FLUoxetine HCl 20 MG CAP PO SCH (10:08)
[2018-04-22] MEDS: Carvedilol 6.25 MG TAB PO SCH (10:09)
--- NOTE | 2018-04-22 10:40 | PDOC.PN ---
- Subjective Encounter Start Date: 04/22/18 Encounter Start Time: 09:45 Subjective: feels better, no sob or abd pain -: tolerating oral diet -: has been ambulating with PT - Objective MAR Reviewed: Yes Vital Signs & Weight: Vital Signs (12 hours) Temp Pulse Resp BP BP Pulse Ox 04/22/18 08:00 98.1 F 75 18 149/69 H 97 04/22/18 06:47 104 H 18 93 L 04/22/18 04:00 97.9 F 77 15 144/64 H 96 Weight Weight 239 lb 11.2 oz I&O: 04/21/18 04/22/18 04/23/18 06:59 06:59 06:59 Intake Total 950 1490 Output Total 700 1975 Balance 250 -485 Result Diagrams: 04/21/18 05:05 04/21/18 05:05 Phys Exam - Physical Examination HEENT: PERRLA, moist MMs Neck: no JVD, supple Respiratory: no wheezing, no rales Cardiovascular: RRR, no significant murmur Gastrointestinal: soft, non-tender, positive bowel sounds Musculoskeletal: no edema, pulses present Neurological: non-focal, moves all 4 limbs Psychiatric: normal affect, A&O x 3 Dx/Plan (1) Sepsis Code(s): A41.9 - SEPSIS, UNSPECIFIED ORGANISM Status: Acute (2) Bacteremia Code(s): R78.81 - BACTEREMIA Status: Acute Comment: klebsiella (3) Acute pyelonephritis Code(s): N10 - ACUTE PYELONEPHRITIS Status: Acute Comment: left (4) Acute cholecystitis Code(s): K81.0 - ACUTE CHOLECYSTITIS Status: Acute (5) HTN (hypertension) Code(s): I10 - ESSENTIAL (PRIMARY) HYPERTENSION Status: Chronic Qualifiers: Hypertension type: essential hypertension Qualified Code(s): I10 - Essential (primary) hypertension (6) Obesity Code(s): E66.9 - OBESITY, UNSPECIFIED Status: Chronic Qualifiers: Obesity classification: adult class 3 (BMI >= 40) Body mass index: BMI 40.0 -44.9 (7) LEANA (acute kidney injury) Code(s): N17.9 - ACUTE KIDNEY FAILURE, UNSPECIFIED Status: Acute Comment: resolving (8) Metabolic acidosis Code(s): E87.2 - ACIDOSIS Status: Acute Comment: resolving - Plan levaquin x 14 days -: to f/u with in 4 weeks for repeat usg/lap nelly -: d/w son , will arrange with PT, CM aware -: may dc home after PFT's are done * . Review of Systems - Medications/Allergies Allergies/Adverse Reactions: Allergies Allergy/AdvReac Type Severity Reaction Status Date / Time No Known Allergies Allergy Verified 04/19/18 02:19 Medications: Current Medications Albuterol/Ipratropium (Duoneb) 3 ml NEB [id number] [facility] Last Admin: 04/22/18 06:47 Dose: 3 ml Amlodipine Besylate (Norvasc) 10 mg PO DAILY [facility] Last Admin: 04/22/18 10:08 Dose: 10 mg Aspirin (Ecotrin) 81 mg PO DAILY [facility] Last Admin: 04/22/18 10:08 Dose: 81 mg Atorvastatin Calcium (Lipitor) 20 mg PO DAILY [facility] Last Admin: 04/22/18 10:08 Dose: 20 mg Carvedilol (Coreg) 12.5 mg PO BID [facility] Last Admin: 04/22/18 10:09 Dose: 12.5 mg Fluoxetine HCl (Prozac) 20 mg PO DAILY [facility] Last Admin: 04/22/18 10:08 Dose: 20 mg Levofloxacin (Levaquin) 500 mg PO 0600 [facility] Levothyroxine Sodium (Synthroid) 125 mcg PO 0600 [facility] Last Admin: 04/22/18 05:28 Dose: 125 mcg Pantoprazole Sodium (Protonix) 40 mg PO DAILY [facility] Last Admin: 04/22/18 10:08 Dose: 40 mg Sodium Chloride (Flush - Normal Saline) 10 ml IVF Q12HR [facility] Last Admin: 04/22/18 10:09 Dose: 10 ml Sodium Chloride (Flush - Normal Saline) 10 ml IVF PRN PRN PRN Reason: Saline Flush
[2018-04-22 14:54] VITALS: BP 164/65; TEMP 97.9
--- NOTE | 2018-04-22 20:16 | DIS ---
DATE OF ADMISSION: 04/18/2018. DATE OF DISCHARGE: 04/22/2018 DISCHARGE DISPOSITION: To home with home health. PRIMARY DISCHARGE DIAGNOSES: Sepsis, Klebsiella bacteremia, acute left pyelonephritis, possible acut e cholecystitis, acute kidney injury with metabolic acidosis. SECONDARY DISCHARGE DIAGNOSES: Obesity, hypertension. PROCEDURES DONE DURING HOSPITALIZATION: Patient has had abdominal and pelvic CAT scan done on the da y of admission, which showed asymmetric left perinephric stranding suggestive of pyelonephritis. Ult rasound of right upper quadrant done showed gallbladder sludge as well as gallbladder wall thickening and edematous gallbladder wall with a tiny amount of pericholecystic fluid, worrisome for cholecysti tis. Echo with 2D Doppler showed an EF of 55-60%. There is grade 2 diastolic dysfunction. Normal p ulmonary artery pressure. Blood cultures 1 out of 2 grew Klebsiella sensitive to quinolones. Stool cultures were negative for any infectious organism. H&H 11 and 33, platelet count 153, white count o f 9 on the day of discharge. Troponin x3 negative. Liver enzymes within normal limits. Initial BUN and creatinine were 155 and 1.3, serum bicarbonate of 18. Discharge BUN and creatinine are 20 and 0 .7 with serum bicarbonate of 24. INPATIENT CONSULTS: Dr. Chand for Pulmonology, Dr. Faye for Infectious Disease, and Dr. Mann for General Surgery. DISCHARGE PLAN: Patient to follow up with Dr. Chand for further workup including sleep studies as adv ised. She needs to follow up with Dr. Mann in 4 weeks with possible repeat abdominal ultrasound, and primary care physician in 1 week. BRIEF COURSE DURING HOSPITALIZATION: Patient initially came to ER with complaints of severe diarrhea for 3 days and generalized weakness with the fever. The patient has had complete workup done for se psis. Her cultures grew 1 of 2 Klebsiella in the blood. The patient has had a CT abdomen done, whic h showed possible left pyelonephritis. Right upper quadrant ultrasound done showed findings of acute cholecystitis as well. She has had consultation with Dr. Mann for General Surgery, Dr. Faye for Infectious Disease, and Dr. Chand for Pulmonology. The patient has a BMI of 42 and likely her baseli ne shortness of breath is due to obesity hypoventilation. Echo with 2D Doppler showed normal EF with normal valvular structures. The patient was feeling better on medical management including IV antib iotics. In view of this, she wanted to try medications first and then if needed, will get laparoscop ic cholecystectomy as outpatient. She will have full pulmonary function tests today prior to dischar ge. The patient also has underlying sleep apnea and will follow up with Dr. Chand . She has ambulated with physical therapy and will have home health with PT on discharge. She is hemodynamically stable and has been placed on Levaquin for another [address] Faye' advice. Please see a face-to-fac e documentation on [facility] for the day of discharge.
== END 2018-04-22 15:30 | disposition home health service (06) | DRG 872 ==
LOC: ERS 22:26 → 2SW 04-19 00:44 → OBSVTOIN 04-19 16:33 → 2NO 04-20 16:30
PROVIDERS: ADMIT Internal Medicine; ATTEND Internal Medicine
DX: A41.50 Gram-negative sepsis, unspecified (principal); N17.9 Acute kidney failure, unspecified; I45.2 Bifascicular block; E87.2 Acidosis; K81.0 Acute cholecystitis; N10 Acute pyelonephritis; Z68.41 Body mass index [BMI] 40.0-44.9, adult; I42.9 Cardiomyopathy, unspecified; E87.1 Hypo-osmolality and hyponatremia; E66.01 Morbid (severe) obesity due to excess calories; E86.0 Dehydration; E78.5 Hyperlipidemia, unspecified; G47.33 Obstructive sleep apnea (adult) (pediatric); E87.6 Hypokalemia; F32.9 Major depressive disorder, single episode, unspecified; I11.0 Hypertensive heart disease with heart failure; R06.89 Other abnormalities of breathing; I50.9 Heart failure, unspecified; Z91.19 Patient's noncompliance with other medical treatment and regimen; Z79.82 Long term (current) use of aspirin; Z79.899 Other long term (current) drug therapy
CPT/HCPCS: 36415; 71045; 74176; 76700; 80053; 80069; 82553; 83605; 83880; 84484; 85025; 87040; 87045; 87046; 87077; 87086; 87149; 87186; 87449; 87899; 93005; 93306; 94060; 94640; 94727; 94729; 96374; 96375; A4216; G8978-GP-CK; G8979-GP-CJ; J0456; J0692; J0696; J1956; J7050; J7620; S0028

== ENCOUNTER 2019-09-22 14:01 | Outpatient (CLI) | payer MEDICARE, OTHER ==
--- NOTE | 2019-09-22 15:50 | BD ---
EXAM: DEXA bone density examination HISTORY: 79-year-old postmenopausal female for screening COMPARISON: None FINDINGS: L1--bone mineral density 0.984 g/sq cm; T score -0.1 L2--bone mineral density 1.112 g/sq cm; T score 0.8 L3--bone mineral density 1.101 g/sq cm; T score 0.2 L4--bone mineral density 1.018 g/sq cm; T score -0.4 Total L1-L4--bone mineral density 1.052 g/sq cm; T score 0.0 Left femoral neck--bone mineral density0.591; T score -2.3 Total proximal left femur--bone mineral density 0.763; T score -1.5 Right femoral neck--bone mineral density0.567; T score -2.5 Total proximal right femur--bone mineral density 0.767; T score -1.4 IMPRESSION: Osteoporosis.
--- NOTE | 2019-09-22 16:16 | MMO ---
Bilateral MAMMO Bilat Screen [facility]. CLINICAL HISTORY: Patient is 79 years old and is seen for screening. The patient has no family history of breast cancer. The patient has no personal history of cancer. The patient has a history of bilateral Excisional Biopsy - benign. VIEWS: The views performed were: bilateral craniocaudal with tomosynthesis and bilateral mediolateral oblique with tomosynthesis. FILMS COMPARED: The present examination has been compared to prior imaging studies performed at [facility] on 06/14/2017, and at [facility] on 04/03/2011 and 04/09/2012. This study has been interpreted with the assistance of computer-aided detection. MAMMOGRAM FINDINGS: There are scattered fibroglandular densities. There are stable benign appearing calcifications seen in both breasts. There are also vascular calcifications. There are no suspicious masses, suspicious calcifications, or new areas of architectural distortion. IMPRESSION: THERE IS NO MAMMOGRAPHIC EVIDENCE OF MALIGNANCY. A ROUTINE FOLLOW-UP MAMMOGRAM IN 1 YEAR IS RECOMMENDED. THE RESULTS OF THIS EXAM WERE SENT TO THE PATIENT. ACR BI-RADS Category 2 - Benign finding MAMMOGRAPHY NOTE: 1. A negative mammogram report should not delay a biopsy if a dominant of clinically suspicious mass is present. 2. Approximately 10% to 15% of breast cancers are not detected by mammography. 3. Adenosis and dense breasts may obscure an underlying neoplasm. Reported by: MOIRA HOFFMAN MD Electonically Signed: [id number]
== END 2019-09-22 14:02 | disposition home or self-care (01) ==
LOC: BICMAMMO 14:01
PROVIDERS: ATTEND Internal Medicine
DX: Z12.31 Encounter for screening mammogram for malignant neoplasm of breast (principal); Z13.820 Encounter for screening for osteoporosis; M81.0 Age-related osteoporosis without current pathological fracture; Z78.0 Asymptomatic menopausal state; Z91.89 Other specified personal risk factors, not elsewhere classified
CPT/HCPCS: 77063; 77067; 77080

== ENCOUNTER 2020-04-22 11:37 | Outpatient (CLI) | payer MEDICARE, OTHER ==
--- NOTE | 2020-04-22 12:13 | RAD ---
EXAM: Two views chest PROVIDED CLINICAL HISTORY: Dyspnea COMPARISON: 04/07/2018 FINDINGS: Cardiac and mediastinal silhouette appears within normal limits. Lungs appear free of significant opa city. No pleural fluid or pneumothorax apparent. IMPRESSION: No evidence for an acute cardiopulmonary process.
== END 2020-04-22 11:38 | disposition home or self-care (01) ==
LOC: BICRAD 11:37
PROVIDERS: ATTEND Internal Medicine
DX: R06.00 Dyspnea, unspecified (principal); I10 Essential (primary) hypertension
CPT/HCPCS: 71046

== ENCOUNTER 2020-12-22 12:15 | Outpatient (CLI) | payer MEDICARE, OTHER | END 2020-12-22 12:16 | disposition home or self-care (01) | LOC: BICMAMMO 12:15 | PROVIDERS: ATTEND Internal Medicine | DX: Z12.31 Encounter for screening mammogram for malignant neoplasm of breast (principal); Z91.89 Other specified personal risk factors, not elsewhere classified | CPT/HCPCS: 77063; 77067 ==

== ENCOUNTER 2021-05-22 14:43 | Outpatient (CLI) | payer MEDICARE, OTHER | END 2021-05-22 14:44 | disposition home or self-care (01) | LOC: BICULT 14:43 | PROVIDERS: ATTEND Internal Medicine | DX: R80.9 Proteinuria, unspecified (principal) | CPT/HCPCS: 76770 ==

== ENCOUNTER 2021-07-05 11:04 | Outpatient (CLI) | payer MEDICARE, OTHER | END 2021-07-05 11:05 | disposition home or self-care (01) | LOC: BICRAD 11:04 | PROVIDERS: ATTEND Internal Medicine | DX: R06.00 Dyspnea, unspecified (principal); I10 Essential (primary) hypertension | CPT/HCPCS: 71046 ==

== ENCOUNTER 2021-08-15 13:50 | Inpatient (IN) | payer MEDICARE, OTHER ==
[2021-08-15 15:00] LABS: #Eosinphils 0.1 thou/uL (0.0-0.7); #Lymphocytes 1.6 thou/uL (1.20-3.40); #Monocytes 0.6 thou/uL (0.11-0.59); #Neutrophils 7.5 thou/uL (1.40-6.50); %Basophils 0.1 % (0.0-1.0); %Eosinophils 0.5 % (0.0-10.0); %Lymphocytes 16.4 % (21.0-51.0); %Monocytes 5.6 % (0.0-10.0); %Neutrophils 77.4 % (42.0-75.0); Hemoglobin 11.8 g/dL (12.0-16.0); Mean Corpuscular HGB CONC 33.6 g/dL (32.0-36.0); Mean Corpuscular Hemoglobin 31.3 pg (27.0-31.0); Mean Corpuscular Volume 93.2 fL (78.0-98.0); Mean Platelet Volume 8.4 fL (7.4-10.4); Platelet Count 162 thou/uL (130-400); RBC Distribution Width 12.7 % (11.5-14.5); Red Blood Cell (RBC) Count 3.78 mill/uL (4.20-5.40); White Blood Cell (WBC) Count 9.7 thou/uL (4.8-10.8)
[2021-08-15 15:19] LABS: Anion Gap 16 mmol/L (10-20); BUN (Urea Nitrogen) 23 mg/dL (9.8-20.1); CKMB 0.6 ng/mL (0-6.6); Calc. Creatinine Clearance 0 mL/min (70-130); Carbon Dioxide 24 mmol/L (23-31); Chloride 99 mmol/L (98-107); Sodium 135 mmol/L (136-145)
[2021-08-15 15:20] LABS: ALT (SGPT) 11 U/L (8-55); AST (SGOT) 16 U/L (5-34); Albumin 4.3 g/dL (3.4-4.8); Alkaline Phosphatase 57 U/L (40-110); Bilirubin, Total 1.8 mg/dL (0.2-1.2); Calcium 8.9 mg/dL (7.8-10.44); Globulin 2.8 g/dL (2.4-3.5); Glucose 124 mg/dL (83-110); Protein, Total 7.1 g/dL (5.8-8.1)
[2021-08-15] MEDS ORDERED: Aspirin Chewable 81 MG TAB ONE (20:06)
[2021-08-15] MEDS ORDERED: Furosemide 40 MG/4 ML VIAL ONE (20:06)
[2021-08-15] MEDS ORDERED: HYDROcodone/Acetaminophen 5/325 mg Tablet PO PRN (20:12)
[2021-08-15] MEDS ORDERED: Senokot S 8.6-50 MG TAB PO PRN (20:12)
[2021-08-15] MEDS ORDERED: hydrALAZINE 25 MG TAB ONE (22:09)
[2021-08-15] MEDS: Furosemide 40 MG/4 ML VIAL SLOW IVP SCH (22:11)
[2021-08-15] MEDS: hydrALAZINE 25 MG TAB PO SCH (22:34)
[2021-08-16] MEDS ORDERED: hydrALAZINE 20 MG/ML VIAL ONE ×2 (04:07→12:43)
[2021-08-16] MEDS: hydrALAZINE 20 MG/ML VIAL SLOW IVP PRN ×3 (04:09→16:40)
[2021-08-16] MEDS ORDERED: Furosemide 40 MG/4 ML VIAL ONE (05:36)
[2021-08-16] MEDS: Furosemide 40 MG/4 ML VIAL SLOW IVP SCH ×3 (05:47→20:41)
[2021-08-16] MEDS: Levothyroxine Sodium 125 MCG TAB PO SCH (05:48)
[2021-08-16 06:15] LABS: #Eosinphils 0.1 thou/uL (0.0-0.7); #Lymphocytes 1.4 thou/uL (1.20-3.40); #Monocytes 0.6 thou/uL (0.11-0.59); #Neutrophils 5.6 thou/uL (1.40-6.50); %Basophils 0.3 % (0.0-1.0); %Eosinophils 0.8 % (0.0-10.0); %Lymphocytes 18.6 % (21.0-51.0); %Monocytes 7.1 % (0.0-10.0); %Neutrophils 73.2 % (42.0-75.0); Hemoglobin 11.4 g/dL (12.0-16.0); Mean Corpuscular HGB CONC 33.4 g/dL (32.0-36.0); Mean Corpuscular Hemoglobin 31.1 pg (27.0-31.0); Mean Corpuscular Volume 93.1 fL (78.0-98.0); Mean Platelet Volume 8.6 fL (7.4-10.4); Platelet Count 153 thou/uL (130-400); RBC Distribution Width 12.8 % (11.5-14.5); Red Blood Cell (RBC) Count 3.66 mill/uL (4.20-5.40); White Blood Cell (WBC) Count 7.7 thou/uL (4.8-10.8)
[2021-08-16 06:41] LABS: Anion Gap 15 mmol/L (10-20); BUN (Urea Nitrogen) 20 mg/dL (9.8-20.1); Calc. Creatinine Clearance 53 mL/min (70-130); Carbon Dioxide 23 mmol/L (23-31); Chloride 101 mmol/L (98-107); Glucose 104 mg/dL (83-110); Potassium 3.7 mmol/L (3.5-5.1); Sodium 135 mmol/L (136-145)
[2021-08-16] MEDS ORDERED: Aspirin Chewable 81 MG TAB ONE (08:39)
[2021-08-16] MEDS ORDERED: Enoxaparin Sodium 30 MG/0.3 ML SYRINGE ONE (08:39)
[2021-08-16] MEDS: FLUoxetine HCl 20 MG CAP PO SCH (08:45)
[2021-08-16] MEDS: hydrALAZINE 25 MG TAB PO SCH ×3 (08:45→20:42)
[2021-08-16] MEDS: Enoxaparin Sodium 30 MG/0.3 ML SYRINGE SC SCH (08:45)
[2021-08-16] MEDS: Aspirin Chewable 81 MG TAB PO SCH (08:45)
[2021-08-16] MEDS ORDERED: Carvedilol 6.25 MG TAB PO SCH (09:00)
[2021-08-16 12:31] LABS: SARS-CoV-2 PCR by NAA Not Detected (NotDetected)
[2021-08-16] MEDS ORDERED: Spironolactone 25 MG TAB PO SCH (14:45)
[2021-08-16] MEDS: Icosapent Ethyl 1 GM CAPSULE PO SCH (16:41)
[2021-08-16] MEDS: Carvedilol 25 MG TAB PO SCH (20:42)
[2021-08-17 05:11] LABS: Troponin I 0.015 ng/mL (< 0.028)
[2021-08-17] MEDS: Furosemide 40 MG/4 ML VIAL SLOW IVP SCH (05:25)
[2021-08-17] MEDS: Levothyroxine Sodium 125 MCG TAB PO SCH (05:26)
[2021-08-17 06:59] LABS: #Lymphocytes 1.2 thou/uL (1.20-3.40); #Monocytes 0.6 thou/uL (0.11-0.59); #Neutrophils 5.5 thou/uL (1.40-6.50); %Basophils 0.2 % (0.0-1.0); %Eosinophils 0.1 % (0.0-10.0); %Lymphocytes 16.2 % (21.0-51.0); %Monocytes 7.8 % (0.0-10.0); %Neutrophils 75.7 % (42.0-75.0); Hemoglobin 10.5 g/dL (12.0-16.0); Mean Corpuscular HGB CONC 32.5 g/dL (32.0-36.0); Mean Corpuscular Hemoglobin 30.5 pg (27.0-31.0); Mean Corpuscular Volume 93.9 fL (78.0-98.0); Mean Platelet Volume 8.7 fL (7.4-10.4); Platelet Count 125 thou/uL (130-400); RBC Distribution Width 12.7 % (11.5-14.5); Red Blood Cell (RBC) Count 3.45 mill/uL (4.20-5.40); White Blood Cell (WBC) Count 7.3 thou/uL (4.8-10.8)
[2021-08-17 07:16] LABS: Anion Gap 15 mmol/L (10-20); BUN (Urea Nitrogen) 23 mg/dL (9.8-20.1); Calc. Creatinine Clearance 42 mL/min (70-130); Calcium 8.9 mg/dL (7.8-10.44); Carbon Dioxide 25 mmol/L (23-31); Chloride 101 mmol/L (98-107); Glucose 117 mg/dL (83-110); Potassium 3.7 mmol/L (3.5-5.1); Sodium 137 mmol/L (136-145)
[2021-08-17] MEDS: hydrALAZINE 20 MG/ML VIAL SLOW IVP PRN ×2 (07:42→11:14)
[2021-08-17] MEDS ORDERED: Spironolactone 25 MG TAB PO SCH (08:00)
[2021-08-17] MEDS: Acetaminophen 325 MG TAB PO PRN (09:26)
[2021-08-17] MEDS: FLUoxetine HCl 20 MG CAP PO SCH (09:26)
[2021-08-17] MEDS: Carvedilol 25 MG TAB PO SCH ×2 (09:26→21:18)
[2021-08-17] MEDS: Icosapent Ethyl 1 GM CAPSULE PO SCH ×2 (09:26→17:21)
[2021-08-17] MEDS: hydrALAZINE 25 MG TAB PO SCH ×3 (09:27→21:16)
[2021-08-17] MEDS: Aspirin Chewable 81 MG TAB PO SCH (09:27)
[2021-08-17] MEDS: NIFEdipine XL 60 MG TAB PO SCH (09:27)
[2021-08-17] MEDS: Enoxaparin Sodium 30 MG/0.3 ML SYRINGE SC SCH (09:27)
[2021-08-17] MEDS ORDERED: Gabapentin 100 MG CAP PO SCH ×2 (11:48→13:00)
[2021-08-17] MEDS ORDERED: Acetaminophen/Codeine 30-300mg Tablet PO PRN (11:48)
[2021-08-17] MEDS ORDERED: Acetaminophen/Codeine 30-300mg Tablet PO SCH (12:00)
[2021-08-17] MEDS: Gabapentin 100 MG CAP PO SCH (21:17)
[2021-08-18] MEDS: Levothyroxine Sodium 125 MCG TAB PO SCH (05:38)
[2021-08-18 06:03] LABS: Anion Gap 16 mmol/L (10-20); BUN (Urea Nitrogen) 30 mg/dL (9.8-20.1); Calc. Creatinine Clearance 29 mL/min (70-130); Carbon Dioxide 24 mmol/L (23-31); Chloride 100 mmol/L (98-107); Glucose 121 mg/dL (83-110); Potassium 3.8 mmol/L (3.5-5.1); Sodium 136 mmol/L (136-145)
[2021-08-18] MEDS ORDERED: Furosemide 40 MG/4 ML VIAL SLOW IVP SCH (09:00)
[2021-08-18] MEDS: hydrALAZINE 25 MG TAB PO SCH ×3 (10:01→20:31)
[2021-08-18] MEDS: Enoxaparin Sodium 30 MG/0.3 ML SYRINGE SC SCH (10:01)
[2021-08-18] MEDS: Icosapent Ethyl 1 GM CAPSULE PO SCH ×2 (10:01→17:11)
[2021-08-18] MEDS: NIFEdipine XL 60 MG TAB PO SCH ×2 (10:02→20:32)
[2021-08-18] MEDS: Aspirin Chewable 81 MG TAB PO SCH (10:02)
[2021-08-18] MEDS: FLUoxetine HCl 20 MG CAP PO SCH (10:02)
[2021-08-18] MEDS: Gabapentin 100 MG CAP PO SCH ×2 (10:02→20:31)
[2021-08-18] MEDS: Carvedilol 25 MG TAB PO SCH ×2 (10:02→20:30)
[2021-08-18] MEDS: Albumin 25% 25 GM/100 ML BOT IVPB SCH ×3 (12:31→23:03)
[2021-08-19] MEDS: Levothyroxine Sodium 125 MCG TAB PO SCH (05:06)
[2021-08-19] MEDS: Albumin 25% 25 GM/100 ML BOT IVPB SCH (05:07)
[2021-08-19 07:02] LABS: #Eosinphils 0.1 thou/uL (0.0-0.7); #Lymphocytes 1.1 thou/uL (1.20-3.40); #Monocytes 0.5 thou/uL (0.11-0.59); #Neutrophils 5.2 thou/uL (1.40-6.50); %Basophils 0.2 % (0.0-1.0); %Eosinophils 1.4 % (0.0-10.0); %Lymphocytes 15.9 % (21.0-51.0); %Monocytes 7.3 % (0.0-10.0); %Neutrophils 75.1 % (42.0-75.0); Hemoglobin 9.4 g/dL (12.0-16.0); Mean Corpuscular HGB CONC 33.1 g/dL (32.0-36.0); Mean Corpuscular Hemoglobin 31.2 pg (27.0-31.0); Mean Corpuscular Volume 94.1 fL (78.0-98.0); Mean Platelet Volume 9.4 fL (7.4-10.4); Platelet Count 119 thou/uL (130-400); RBC Distribution Width 12.5 % (11.5-14.5); Red Blood Cell (RBC) Count 3.01 mill/uL (4.20-5.40); White Blood Cell (WBC) Count 6.9 thou/uL (4.8-10.8)
[2021-08-19 07:14] LABS: Anion Gap 16 mmol/L (10-20); BUN (Urea Nitrogen) 42 mg/dL (9.8-20.1); Calc. Creatinine Clearance 22 mL/min (70-130); Calcium 8.9 mg/dL (7.8-10.44); Carbon Dioxide 25 mmol/L (23-31); Chloride 98 mmol/L (98-107); Glucose 121 mg/dL (83-110); Magnesium 1.9 mg/dL (1.6-2.6); Potassium 3.9 mmol/L (3.5-5.1); Sodium 135 mmol/L (136-145)
[2021-08-19] MEDS: Gabapentin 100 MG CAP PO SCH ×2 (11:13→21:17)
[2021-08-19] MEDS: NIFEdipine XL 60 MG TAB PO SCH ×2 (11:13→21:17)
[2021-08-19] MEDS: FLUoxetine HCl 20 MG CAP PO SCH (11:13)
[2021-08-19] MEDS: hydrALAZINE 25 MG TAB PO SCH ×3 (11:13→21:17)
[2021-08-19] MEDS: Carvedilol 25 MG TAB PO SCH ×2 (11:13→21:18)
[2021-08-19] MEDS: Enoxaparin Sodium 30 MG/0.3 ML SYRINGE SC SCH (11:13)
[2021-08-19] MEDS: Sodium Chloride 0.9% 1,000 ML IV SCH ×5 (11:14→21:18)
[2021-08-19] MEDS: Aspirin Chewable 81 MG TAB PO SCH (11:14)
[2021-08-19] MEDS: Icosapent Ethyl 1 GM CAPSULE PO SCH ×2 (11:19→16:12)
[2021-08-19] MEDS ORDERED: Calcium Carbonate 500 MG ChewTAB PO PRN (21:20)
[2021-08-20 05:03] LABS: Anion Gap 19 mmol/L (10-20); BUN (Urea Nitrogen) 51 mg/dL (9.8-20.1); Calc. Creatinine Clearance 17 mL/min (70-130); Calcium 9.2 mg/dL (7.8-10.44); Carbon Dioxide 22 mmol/L (23-31); Chloride 97 mmol/L (98-107); Glucose 128 mg/dL (83-110); Magnesium 1.9 mg/dL (1.6-2.6); Potassium 3.8 mmol/L (3.5-5.1); Sodium 134 mmol/L (136-145)
[2021-08-20] MEDS: Sodium Chloride 0.9% 1,000 ML IV SCH (05:39)
[2021-08-20] MEDS: Levothyroxine Sodium 125 MCG TAB PO SCH (05:51)
[2021-08-20] MEDS: NIFEdipine XL 60 MG TAB PO SCH ×2 (09:30→20:59)
[2021-08-20] MEDS: Aspirin Chewable 81 MG TAB PO SCH (09:30)
[2021-08-20] MEDS: Carvedilol 25 MG TAB PO SCH ×2 (09:31→20:58)
[2021-08-20] MEDS: Gabapentin 100 MG CAP PO SCH ×2 (09:31→20:58)
[2021-08-20] MEDS: Enoxaparin Sodium 30 MG/0.3 ML SYRINGE SC SCH (09:31)
[2021-08-20] MEDS: FLUoxetine HCl 20 MG CAP PO SCH (09:31)
[2021-08-20] MEDS: hydrALAZINE 25 MG TAB PO SCH ×3 (09:31→20:59)
[2021-08-20] MEDS: Icosapent Ethyl 1 GM CAPSULE PO SCH ×2 (09:36→17:16)
[2021-08-20] MEDS: Albumin 25% 25 GM/100 ML BOT IVPB SCH ×2 (11:56→17:16)
[2021-08-20] MEDS ORDERED: Furosemide 100 MG/10 ML VIAL SLOW IVP SCH (14:30)
[2021-08-21] MEDS: Albumin 25% 25 GM/100 ML BOT IVPB SCH ×4 (02:26→17:48)
[2021-08-21] MEDS: Levothyroxine Sodium 125 MCG TAB PO SCH (06:10)
[2021-08-21 06:14] LABS: Anion Gap 19 mmol/L (10-20); BUN (Urea Nitrogen) 63 mg/dL (9.8-20.1); Calc. Creatinine Clearance 15 mL/min (70-130); Calcium 8.9 mg/dL (7.8-10.44); Carbon Dioxide 21 mmol/L (23-31); Chloride 95 mmol/L (98-107); Glucose 123 mg/dL (83-110); Potassium 4.1 mmol/L (3.5-5.1); Sodium 131 mmol/L (136-145)
[2021-08-21] MEDS ORDERED: NIFEdipine XL 60 MG TAB PO SCH (09:00)
[2021-08-21] MEDS ORDERED: Albumin 25% 25 GM/100 ML BOT IVPB SCH (09:00)
[2021-08-21] MEDS: Gabapentin 100 MG CAP PO SCH ×2 (09:14→21:18)
[2021-08-21] MEDS: Aspirin Chewable 81 MG TAB PO SCH (09:14)
[2021-08-21] MEDS: FLUoxetine HCl 20 MG CAP PO SCH (09:14)
[2021-08-21] MEDS: Enoxaparin Sodium 30 MG/0.3 ML SYRINGE SC SCH (09:15)
[2021-08-21] MEDS: Carvedilol 25 MG TAB PO SCH (09:15)
[2021-08-21] MEDS: Icosapent Ethyl 1 GM CAPSULE PO SCH ×2 (09:25→17:48)
[2021-08-21] MEDS ORDERED: Sodium Chloride 0.9% 250 ML IV SCH (10:30)
[2021-08-21] MEDS: Carvedilol 6.25 MG TAB PO SCH (17:47)
[2021-08-21] MEDS ORDERED: Sodium Chloride 0.9% 250 ML 200 ML IVPB SCH (19:45)
[2021-08-22] MEDS: Albumin 25% 25 GM/100 ML BOT IVPB SCH ×2 (01:16→06:14)
[2021-08-22 04:25] LABS: #Eosinphils 0.1 thou/uL (0.0-0.7); #Monocytes 0.6 thou/uL (0.11-0.59); #Neutrophils 3.4 thou/uL (1.40-6.50); %Basophils 0.1 % (0.0-1.0); %Eosinophils 1.1 % (0.0-10.0); %Lymphocytes 20.5 % (21.0-51.0); %Monocytes 11.2 % (0.0-10.0); %Neutrophils 67.1 % (42.0-75.0); Hemoglobin 9.1 g/dL (12.0-16.0); Mean Corpuscular HGB CONC 33.7 g/dL (32.0-36.0); Mean Corpuscular Hemoglobin 31.2 pg (27.0-31.0); Mean Corpuscular Volume 92.6 fL (78.0-98.0); Mean Platelet Volume 8.9 fL (7.4-10.4); Platelet Count 134 thou/uL (130-400); RBC Distribution Width 12.6 % (11.5-14.5); Red Blood Cell (RBC) Count 2.92 mill/uL (4.20-5.40)
[2021-08-22 04:47] LABS: Anion Gap 19 mmol/L (10-20); BUN (Urea Nitrogen) 74 mg/dL (9.8-20.1); Calc. Creatinine Clearance 12 mL/min (70-130); Calcium 8.4 mg/dL (7.8-10.44); Carbon Dioxide 19 mmol/L (23-31); Chloride 95 mmol/L (98-107); Glucose 114 mg/dL (83-110); Potassium 4.3 mmol/L (3.5-5.1); Sodium 129 mmol/L (136-145)
[2021-08-22] MEDS: Levothyroxine Sodium 125 MCG TAB PO SCH (06:14)
[2021-08-22] MEDS: Carvedilol 6.25 MG TAB PO SCH ×2 (08:57→17:09)
[2021-08-22] MEDS: Enoxaparin Sodium 30 MG/0.3 ML SYRINGE SC SCH (08:57)
[2021-08-22] MEDS: Gabapentin 100 MG CAP PO SCH ×2 (08:57→22:14)
[2021-08-22] MEDS: FLUoxetine HCl 20 MG CAP PO SCH (08:58)
[2021-08-22] MEDS: Aspirin Chewable 81 MG TAB PO SCH (08:58)
[2021-08-22] MEDS: Icosapent Ethyl 1 GM CAPSULE PO SCH ×2 (09:03→17:10)
[2021-08-22] MEDS ORDERED: Dextrose 5% in Water 1,000 ML IV SCH (10:00)
[2021-08-22 10:16] LABS: Bilirubin Moderate (Negative); Blood, Urine Negative (Negative); Glucose, Urine (Dipstick) Negative (Negative); Ketone, Urine 15 mg/dL (Negative); Leukocyte Moderate (Negative); Nitrite Negative (Negative); Protein, Urine (Dipstick) > or equal to 300 mg/dL (Neg-Trace); Urobilinogen 0.2 mg/dL (Less than 2)
[2021-08-22 10:18] LABS: Clarity Turbid (Clear); Specific Gravity, Urine 1.025 (1.002-1.036)
[2021-08-22 10:21] LABS: RBC/HPF 0-3 HPF (0-3); Squamous Epithelial 0-3 HPF (0-3); Transitional Epithelial 0-3 HPF (None Seen); WBC/HPF Greater than 50 HPF (0-3)
[2021-08-22 10:22] LABS: Bacteria/HPF 4+ HPF (None Seen)
[2021-08-22] MEDS ORDERED: ceFAZolin 2 GM/Dextrose 50 ML 2 GM in Premix Bag 1 BAG IVPB SCH (11:30)
[2021-08-22] MEDS ORDERED: Furosemide 40 MG/4 ML VIAL SLOW IVP SCH (12:15)
[2021-08-22 17:59] LABS: SARS-CoV-2 PCR by NAA Not Detected (NotDetected)
[2021-08-22] MEDS: Furosemide 40 MG/4 ML VIAL SLOW IVP SCH (22:13)
[2021-08-23] MEDS: Levothyroxine Sodium 125 MCG TAB PO SCH (04:47)
[2021-08-23 04:55] LABS: Mean Corpuscular Hemoglobin 31.1 pg (27.0-31.0); White Blood Cell (WBC) Count 5.2 thou/uL (4.8-10.8)
[2021-08-23 05:16] LABS: #Lymphocytes 0.9 thou/uL (1.20-3.40); #Monocytes 0.6 thou/uL (0.11-0.59); #Neutrophils 3.7 thou/uL (1.40-6.50); %Basophils 0.7 % (0.0-1.0); %Eosinophils 0.8 % (0.0-10.0); %Monocytes 11.7 % (0.0-10.0); %Neutrophils 69.8 % (42.0-75.0); Hemoglobin 9.7 g/dL (12.0-16.0); Mean Corpuscular HGB CONC 32.2 g/dL (32.0-36.0); Mean Corpuscular Volume 96.6 fL (78.0-98.0); Mean Platelet Volume 9.9 fL (7.4-10.4); Platelet Count 167 thou/uL (130-400); RBC Distribution Width 12.9 % (11.5-14.5); Red Blood Cell (RBC) Count 3.11 mill/uL (4.20-5.40)
[2021-08-23 05:21] LABS: Albumin 4.2 g/dL (3.4-4.8); Anion Gap 23 mmol/L (10-20); BUN (Urea Nitrogen) 85 mg/dL (9.8-20.1); BUN/Creatinine Ratio 11.55; Calc. Creatinine Clearance 10 mL/min (70-130); Calcium 7.8 mg/dL (7.8-10.44); Carbon Dioxide 17 mmol/L (23-31); Chloride 93 mmol/L (98-107); Glucose 109 mg/dL (83-110); Phosphorus 8.6 mg/dL (2.3-4.7); Potassium 4.8 mmol/L (3.5-5.1); Sodium 128 mmol/L (136-145)
[2021-08-23] MEDS: Furosemide 40 MG/4 ML VIAL SLOW IVP SCH ×2 (09:27→21:18)
[2021-08-23] MEDS ORDERED: Bupivacaine 0.25% HCL 30 ML VIAL ONE (09:44)
[2021-08-23] MEDS ORDERED: Heparin 10,000 UNITS/ 10 ML VIAL ONE ×2 (09:44→09:48)
[2021-08-23] MEDS ORDERED: Xylocaine 1% w/ Epi 1:100K 10 ML VIAL ONE (09:44)
[2021-08-23] MEDS ORDERED: Sodium Chloride 0.9% 10 ML ONE (09:44)
[2021-08-23] MEDS ORDERED: Propofol 1,000 MG/100 ML VIAL IV ONE (09:47)
[2021-08-23] MEDS ORDERED: Ketamine 50 MG/ML (10ML VIAL) ONE (09:56)
[2021-08-23] MEDS ORDERED: ceFAZolin 2 GM/Dextrose 50 ML IVPB ONE (10:13)
[2021-08-23] MEDS: FLUoxetine HCl 20 MG CAP PO SCH (12:02)
[2021-08-23] MEDS: Gabapentin 100 MG CAP PO SCH ×2 (12:02→21:17)
[2021-08-23] MEDS: Icosapent Ethyl 1 GM CAPSULE PO SCH ×2 (12:02→16:40)
[2021-08-23] MEDS: Aspirin Chewable 81 MG TAB PO SCH (12:02)
[2021-08-23] MEDS: Carvedilol 6.25 MG TAB PO SCH ×2 (12:13→16:40)
[2021-08-23 14:15] LABS: HBSAB Concentration Less than 8.00 mIU/mL; HBSAg Index 0.34 S/CO (0-0.99); Hep B Core Total Ab Non-Reactive (NonReactive); Hep B Core Total Index 0.05 S/CO (0-0.79); Hep B Surf AB Non-Reactive (NonReactive); Hep B Surf Ag Non-Reactive S/CO (NonReactive); Hep C IgG Ab Non-Reactive (NonReactive); Hep C Index 0.24 S/CO (0-0.79)
[2021-08-23] MEDS: Atorvastatin Calcium 20 MG TAB PO SCH (21:17)
[2021-08-24 05:24] LABS: #Eosinphils 0.1 thou/uL (0.0-0.7); #Lymphocytes 1.3 thou/uL (1.20-3.40); #Monocytes 0.6 thou/uL (0.11-0.59); #Neutrophils 5.1 thou/uL (1.40-6.50); %Basophils 0.3 % (0.0-1.0); %Eosinophils 1.8 % (0.0-10.0); %Lymphocytes 17.9 % (21.0-51.0); %Monocytes 8.6 % (0.0-10.0); %Neutrophils 71.4 % (42.0-75.0); Hemoglobin 9.9 g/dL (12.0-16.0); Mean Corpuscular HGB CONC 33.6 g/dL (32.0-36.0); Mean Corpuscular Hemoglobin 30.9 pg (27.0-31.0); Mean Corpuscular Volume 91.8 fL (78.0-98.0); Mean Platelet Volume 9.7 fL (7.4-10.4); Platelet Count 183 thou/uL (130-400); RBC Distribution Width 12.8 % (11.5-14.5); White Blood Cell (WBC) Count 7.2 thou/uL (4.8-10.8)
[2021-08-24 05:43] LABS: Anion Gap 22 mmol/L (10-20); BUN (Urea Nitrogen) 80 mg/dL (9.8-20.1); Calc. Creatinine Clearance 11 mL/min (70-130); Calcium 7.8 mg/dL (7.8-10.44); Carbon Dioxide 18 mmol/L (23-31); Chloride 93 mmol/L (98-107); Glucose 97 mg/dL (83-110); Potassium 4.2 mmol/L (3.5-5.1); Sodium 129 mmol/L (136-145)
[2021-08-24] MEDS: Levothyroxine Sodium 125 MCG TAB PO SCH (06:10)
[2021-08-24] MEDS ORDERED: Heparin 10,000 UNITS/ 10 ML VIAL ONE (08:51)
[2021-08-24] MEDS: Icosapent Ethyl 1 GM CAPSULE PO SCH ×2 (09:38→16:26)
[2021-08-24] MEDS: Gabapentin 100 MG CAP PO SCH ×2 (09:39→21:48)
[2021-08-24] MEDS: Ferrous Sulfate 325 MG TAB PO SCH (09:39)
[2021-08-24] MEDS: Aspirin Chewable 81 MG TAB PO SCH (09:40)
[2021-08-24] MEDS: Enoxaparin Sodium 30 MG/0.3 ML SYRINGE SC SCH (09:40)
[2021-08-24] MEDS: FLUoxetine HCl 20 MG CAP PO SCH (09:40)
[2021-08-24 10:58] VITALS: BMI 44.1
[2021-08-24] MEDS: Carvedilol 6.25 MG TAB PO SCH ×2 (11:26→16:26)
[2021-08-24] MEDS: Atorvastatin Calcium 20 MG TAB PO SCH (21:47)
[2021-08-25 04:32] LABS: #Eosinphils 0.1 thou/uL (0.0-0.7); #Lymphocytes 1.4 thou/uL (1.20-3.40); #Monocytes 0.6 thou/uL (0.11-0.59); #Neutrophils 5.4 thou/uL (1.40-6.50); %Basophils 0.1 % (0.0-1.0); %Eosinophils 1.2 % (0.0-10.0); %Lymphocytes 18.7 % (21.0-51.0); %Monocytes 8.5 % (0.0-10.0); %Neutrophils 71.6 % (42.0-75.0); Hemoglobin 9.6 g/dL (12.0-16.0); Mean Corpuscular HGB CONC 33.5 g/dL (32.0-36.0); Mean Corpuscular Hemoglobin 30.7 pg (27.0-31.0); Mean Corpuscular Volume 91.6 fL (78.0-98.0); Mean Platelet Volume 9.4 fL (7.4-10.4); Platelet Count 168 thou/uL (130-400); RBC Distribution Width 12.9 % (11.5-14.5); Red Blood Cell (RBC) Count 3.14 mill/uL (4.20-5.40); White Blood Cell (WBC) Count 7.5 thou/uL (4.8-10.8)
[2021-08-25 04:48] LABS: Anion Gap 15 mmol/L (10-20); BUN (Urea Nitrogen) 62 mg/dL (9.8-20.1); Calc. Creatinine Clearance 13 mL/min (70-130); Calcium 7.7 mg/dL (7.8-10.44); Carbon Dioxide 26 mmol/L (23-31); Chloride 96 mmol/L (98-107); Glucose 105 mg/dL (83-110); Potassium 3.8 mmol/L (3.5-5.1); Sodium 133 mmol/L (136-145)
[2021-08-25 04:52] LABS: Phosphorus 6.2 mg/dL (2.3-4.7)
[2021-08-25] MEDS: Levothyroxine Sodium 125 MCG TAB PO SCH (05:13)
[2021-08-25] MEDS ORDERED: Heparin 10,000 UNITS/ 10 ML VIAL ONE (08:24)
[2021-08-25] MEDS: Carvedilol 6.25 MG TAB PO SCH ×2 (14:03→16:17)
[2021-08-25] MEDS: Icosapent Ethyl 1 GM CAPSULE PO SCH ×2 (14:04→16:17)
[2021-08-25] MEDS ORDERED: Tuberculin PPD 0.1 ML VIAL I-DERMAL SCH (14:30)
[2021-08-25] MEDS: Gabapentin 100 MG CAP PO SCH ×2 (14:42→21:32)
[2021-08-25] MEDS: FLUoxetine HCl 20 MG CAP PO SCH (14:43)
[2021-08-25] MEDS: Enoxaparin Sodium 30 MG/0.3 ML SYRINGE SC SCH (14:43)
[2021-08-25] MEDS: Ferrous Sulfate 325 MG TAB PO SCH (14:43)
[2021-08-25] MEDS: Aspirin Chewable 81 MG TAB PO SCH (14:43)
[2021-08-25] MEDS: hydrALAZINE 20 MG/ML VIAL SLOW IVP PRN (17:05)
[2021-08-25] MEDS: Atorvastatin Calcium 20 MG TAB PO SCH (21:32)
[2021-08-26 04:39] LABS: #Eosinphils 0.1 thou/uL (0.0-0.7); #Lymphocytes 1.1 thou/uL (1.20-3.40); #Monocytes 0.7 thou/uL (0.11-0.59); #Neutrophils 4.9 thou/uL (1.40-6.50); %Basophils 0.3 % (0.0-1.0); %Eosinophils 1.1 % (0.0-10.0); %Lymphocytes 16.8 % (21.0-51.0); %Monocytes 10.1 % (0.0-10.0); %Neutrophils 71.7 % (42.0-75.0); Hemoglobin 9.4 g/dL (12.0-16.0); Mean Corpuscular HGB CONC 32.6 g/dL (32.0-36.0); Mean Corpuscular Hemoglobin 30.3 pg (27.0-31.0); Mean Corpuscular Volume 92.9 fL (78.0-98.0); Mean Platelet Volume 9.2 fL (7.4-10.4); Platelet Count 146 thou/uL (130-400); RBC Distribution Width 12.9 % (11.5-14.5); White Blood Cell (WBC) Count 6.8 thou/uL (4.8-10.8)
[2021-08-26 05:05] LABS: Anion Gap 16 mmol/L (10-20); BUN (Urea Nitrogen) 38 mg/dL (9.8-20.1); Calc. Creatinine Clearance 19 mL/min (70-130); Carbon Dioxide 26 mmol/L (23-31); Chloride 97 mmol/L (98-107); Glucose 113 mg/dL (83-110); Potassium 3.6 mmol/L (3.5-5.1); Sodium 135 mmol/L (136-145)
[2021-08-26] MEDS: Levothyroxine Sodium 125 MCG TAB PO SCH (05:48)
[2021-08-26] MEDS ORDERED: Heparin 10,000 UNITS/ 10 ML VIAL ONE (08:27)
[2021-08-26] MEDS: Icosapent Ethyl 1 GM CAPSULE PO SCH ×2 (09:15→17:21)
[2021-08-26] MEDS: Calcitriol 0.25 MCG CAP PO SCH (09:15)
[2021-08-26] MEDS: Aspirin Chewable 81 MG TAB PO SCH (09:15)
[2021-08-26] MEDS: Enoxaparin Sodium 30 MG/0.3 ML SYRINGE SC SCH (09:16)
[2021-08-26] MEDS: Gabapentin 100 MG CAP PO SCH ×2 (09:16→20:02)
[2021-08-26] MEDS: Carvedilol 6.25 MG TAB PO SCH ×2 (09:16→17:21)
[2021-08-26] MEDS: Ferrous Sulfate 325 MG TAB PO SCH (09:16)
[2021-08-26] MEDS: FLUoxetine HCl 20 MG CAP PO SCH (09:16)
[2021-08-26] MEDS ORDERED: Polyethylene Glycol 3350 17 GM Packet PO PRN (18:23)
[2021-08-26] MEDS: Atorvastatin Calcium 20 MG TAB PO SCH (20:02)
[2021-08-27 04:55] LABS: #Lymphocytes 0.9 thou/uL (1.20-3.40); #Monocytes 0.8 thou/uL (0.11-0.59); #Neutrophils 6.3 thou/uL (1.40-6.50); %Basophils 0.1 % (0.0-1.0); %Eosinophils 0.6 % (0.0-10.0); %Lymphocytes 10.8 % (21.0-51.0); %Monocytes 9.4 % (0.0-10.0); Hemoglobin 9.7 g/dL (12.0-16.0); Mean Corpuscular HGB CONC 32.8 g/dL (32.0-36.0); Mean Corpuscular Hemoglobin 30.8 pg (27.0-31.0); Mean Corpuscular Volume 93.9 fL (78.0-98.0); Platelet Count 149 thou/uL (130-400); RBC Distribution Width 12.8 % (11.5-14.5); Red Blood Cell (RBC) Count 3.15 mill/uL (4.20-5.40); White Blood Cell (WBC) Count 7.9 thou/uL (4.8-10.8)
[2021-08-27 05:06] LABS: Anion Gap 13 mmol/L (10-20); BUN (Urea Nitrogen) 19 mg/dL (9.8-20.1); Calc. Creatinine Clearance 26 mL/min (70-130); Calcium 8.5 mg/dL (7.8-10.44); Carbon Dioxide 29 mmol/L (23-31); Chloride 98 mmol/L (98-107); Glucose 129 mg/dL (83-110); Potassium 3.6 mmol/L (3.5-5.1); Sodium 136 mmol/L (136-145)
[2021-08-27] MEDS: Levothyroxine Sodium 125 MCG TAB PO SCH (05:08)
[2021-08-27] MEDS ORDERED: READ PPD TEST SITE PO SCH (09:00)
[2021-08-27] MEDS: Icosapent Ethyl 1 GM CAPSULE PO SCH ×2 (10:26→18:13)
[2021-08-27] MEDS: Enoxaparin Sodium 30 MG/0.3 ML SYRINGE SC SCH (10:26)
[2021-08-27] MEDS: Aspirin Chewable 81 MG TAB PO SCH (10:26)
[2021-08-27] MEDS: Ferrous Sulfate 325 MG TAB PO SCH (10:27)
[2021-08-27] MEDS: Carvedilol 6.25 MG TAB PO SCH ×2 (10:27→16:51)
[2021-08-27] MEDS: Calcitriol 0.25 MCG CAP PO SCH (10:27)
[2021-08-27] MEDS: Gabapentin 100 MG CAP PO SCH ×2 (10:27→20:48)
[2021-08-27] MEDS: FLUoxetine HCl 20 MG CAP PO SCH (10:27)
[2021-08-27] MEDS: hydrALAZINE 20 MG/ML VIAL SLOW IVP PRN (13:20)
[2021-08-27] MEDS: Atorvastatin Calcium 20 MG TAB PO SCH (20:49)
[2021-08-27] MEDS: Acetaminophen 325 MG TAB PO PRN (20:49)
[2021-08-28] MEDS: Levothyroxine Sodium 125 MCG TAB PO SCH (04:30)
[2021-08-28] MEDS: hydrALAZINE 20 MG/ML VIAL SLOW IVP PRN (06:49)
[2021-08-28 07:40] LABS: Thyroid Stimulating Hormone 2.6923 uIU/mL (0.35-4.94)
[2021-08-28] MEDS ORDERED: Heparin 10,000 UNITS/ 10 ML VIAL ONE (09:01)
[2021-08-28] MEDS: Icosapent Ethyl 1 GM CAPSULE PO SCH ×2 (09:12→17:22)
[2021-08-28] MEDS: Carvedilol 6.25 MG TAB PO SCH ×2 (09:13→17:24)
[2021-08-28] MEDS: Gabapentin 100 MG CAP PO SCH ×2 (09:13→23:43)
[2021-08-28] MEDS: Ferrous Sulfate 325 MG TAB PO SCH (09:13)
[2021-08-28] MEDS: FLUoxetine HCl 20 MG CAP PO SCH (09:13)
[2021-08-28] MEDS: Calcitriol 0.25 MCG CAP PO SCH (09:13)
[2021-08-28] MEDS: Aspirin Chewable 81 MG TAB PO SCH (09:14)
[2021-08-28] MEDS: Enoxaparin Sodium 30 MG/0.3 ML SYRINGE SC SCH (09:14)
[2021-08-28] MEDS: Amlodipine 5 MG TAB PO SCH (09:15)
[2021-08-28 23:12] LABS: SARS-CoV-2 PCR by NAA Not Detected (NotDetected)
[2021-08-28] MEDS: Atorvastatin Calcium 20 MG TAB PO SCH (23:43)
[2021-08-29 05:21] LABS: #Lymphocytes 1.2 thou/uL (1.20-3.40); #Monocytes 0.6 thou/uL (0.11-0.59); #Neutrophils 3.9 thou/uL (1.40-6.50); %Basophils 0.1 % (0.0-1.0); %Eosinophils 0.8 % (0.0-10.0); %Lymphocytes 20.9 % (21.0-51.0); %Monocytes 10.3 % (0.0-10.0); %Neutrophils 67.9 % (42.0-75.0); Hemoglobin 9.2 g/dL (12.0-16.0); Mean Corpuscular HGB CONC 33.1 g/dL (32.0-36.0); Mean Corpuscular Hemoglobin 30.8 pg (27.0-31.0); Mean Corpuscular Volume 93.1 fL (78.0-98.0); Mean Platelet Volume 9.1 fL (7.4-10.4); Platelet Count 130 thou/uL (130-400); RBC Distribution Width 12.7 % (11.5-14.5); Red Blood Cell (RBC) Count 2.99 mill/uL (4.20-5.40); White Blood Cell (WBC) Count 5.8 thou/uL (4.8-10.8)
[2021-08-29 05:36] LABS: Anion Gap 12 mmol/L (10-20); BUN (Urea Nitrogen) 18 mg/dL (9.8-20.1); Calc. Creatinine Clearance 27 mL/min (70-130); Calcium 8.7 mg/dL (7.8-10.44); Carbon Dioxide 30 mmol/L (23-31); Chloride 96 mmol/L (98-107); Glucose 108 mg/dL (83-110); Potassium 3.4 mmol/L (3.5-5.1); Sodium 135 mmol/L (136-145)
[2021-08-29] MEDS: hydrALAZINE 20 MG/ML VIAL SLOW IVP PRN (05:51)
[2021-08-29] MEDS: Levothyroxine Sodium 125 MCG TAB PO SCH (05:52)
[2021-08-29] MEDS ORDERED: Potassium Chloride 20 MEQ TAB PO SCH (09:00)
[2021-08-29] MEDS ORDERED: Amlodipine 5 MG TAB PO SCH (09:00)
[2021-08-29] MEDS ORDERED: Folic Acid 1 MG TAB PO SCH (09:00)
[2021-08-29] MEDS: Enoxaparin Sodium 30 MG/0.3 ML SYRINGE SC SCH (09:17)
[2021-08-29] MEDS: Calcitriol 0.25 MCG CAP PO SCH (09:18)
[2021-08-29] MEDS: Ferrous Sulfate 325 MG TAB PO SCH (09:18)
[2021-08-29] MEDS: Icosapent Ethyl 1 GM CAPSULE PO SCH (09:18)
[2021-08-29] MEDS: FLUoxetine HCl 20 MG CAP PO SCH (09:18)
[2021-08-29] MEDS: Aspirin Chewable 81 MG TAB PO SCH (09:18)
[2021-08-29] MEDS: Carvedilol 6.25 MG TAB PO SCH (09:18)
[2021-08-29] MEDS: Gabapentin 100 MG CAP PO SCH (09:19)
[2021-08-29] MEDS: Amlodipine 5 MG TAB PO SCH (09:31)
[2021-08-29 13:00] VITALS: BP 157/58; TEMP 98
== END 2021-08-29 15:15 | DRG 291 ==
LOC: ERS 13:50 → ERHOLD 20:12 → 2NO 08-16 13:55 → SURG B 08-27 14:27
PROVIDERS: ADMIT Internal Medicine; ATTEND Internal Medicine
PROC: 0JH63XZ Insertion of Tunneled Vascular Access Device into Chest Subcutaneous Tissue and Fascia, Percutaneous Approach (ICD-10-PCS; principal; 2021-08-23)
PROC: 02HV33Z Insertion of Infusion Device into Superior Vena Cava, Percutaneous Approach (ICD-10-PCS; 2021-08-23)
PROC: B5181ZA Fluoroscopy of Superior Vena Cava using Low Osmolar Contrast, Guidance (ICD-10-PCS; 2021-08-23)
PROC: B548ZZA Ultrasonography of Superior Vena Cava, Guidance (ICD-10-PCS; 2021-08-23)
PROC: 5A1D70Z Performance of Urinary Filtration, Intermittent, Less than 6 Hours Per Day (ICD-10-PCS; 2021-08-23)
DX: I13.2 Hypertensive heart and chronic kidney disease with heart failure and with stage 5 chronic kidney disease, or end stage renal disease (principal); I50.33 Acute on chronic diastolic (congestive) heart failure; J96.01 Acute respiratory failure with hypoxia; N18.6 End stage renal disease; N17.9 Acute kidney failure, unspecified; E87.1 Hypo-osmolality and hyponatremia; Z68.41 Body mass index [BMI] 40.0-44.9, adult; N25.81 Secondary hyperparathyroidism of renal origin; F41.9 Anxiety disorder, unspecified; F32.A Depression, unspecified; E03.9 Hypothyroidism, unspecified; E78.5 Hyperlipidemia, unspecified; I25.10 Atherosclerotic heart disease of native coronary artery without angina pectoris; M19.90 Unspecified osteoarthritis, unspecified site; G89.29 Other chronic pain; K21.9 Gastro-esophageal reflux disease without esophagitis; E66.01 Morbid (severe) obesity due to excess calories; M81.0 Age-related osteoporosis without current pathological fracture; K59.00 Constipation, unspecified; D52.9 Folate deficiency anemia, unspecified; Z20.822 Contact with and (suspected) exposure to COVID-19; G62.9 Polyneuropathy, unspecified; I49.9 Cardiac arrhythmia, unspecified; Z79.82 Long term (current) use of aspirin; Z79.899 Other long term (current) drug therapy; Z90.49 Acquired absence of other specified parts of digestive tract; Z98.890 Other specified postprocedural states
CPT/HCPCS: 36415; 71045; 76770; 80048; 80053; 80069; 81001; 82553; 82607; 82746; 83735; 83880; 83970; 84100; 84443; 84484; 85025; 86580; 86704; 86706; 86803; 87340; 90935; 93005; 93306; 93970; 94640; 96374; 97139; C1752; G0257; J0360; J0690; J1644; J1650; J1940; J2704; J7030; J7050; J7620; P9047; S0020; U0003; U0005

== ENCOUNTER 2021-08-30 05:37 | Inpatient (IN) | payer MEDICARE, OTHER ==
[2021-08-30 05:57] LABS: Actual Bicarbonate (HCO3a) 30.2 mEq/L (22-28); Analyzer IN Cardio ER; Base Excess (BEa) 1.5 mEq/L (-2.0 to +3.0); Calcium, Ionized (arterial) 1.17 mmol/L (1.12-1.30); Carboxyhemoglobin (COHb) 0.1 gm% (0.0-3.0); Hemoglobin (Hb) 11.3 g/dL (12.0-16.0); O2 Tension (PaO2), arterial 77.3 mmHg (> 60.0); Potassium - ABG Lab 4.06 mmol/L (3.70-5.30)
[2021-08-30 06:04] LABS: CO2 Tension 70.8 mmHg (35.0-45.0); pH, Arterial 7.25 (7.35-7.45)
[2021-08-30 06:05] LABS: Puncture Site RRA
[2021-08-30 06:10] LABS: #Eosinphils 0.1 thou/uL (0.0-0.7); #Lymphocytes 2.1 thou/uL (1.20-3.40); #Monocytes 0.9 thou/uL (0.11-0.59); #Neutrophils 14.2 thou/uL (1.40-6.50); %Eosinophils 0.4 % (0.0-10.0); %Lymphocytes 11.9 % (21.0-51.0); %Monocytes 5.4 % (0.0-10.0); %Neutrophils 82.2 % (42.0-75.0); Hemoglobin 10.7 g/dL (12.0-16.0); Mean Corpuscular HGB CONC 32.6 g/dL (32.0-36.0); Mean Corpuscular Hemoglobin 30.7 pg (27.0-31.0); Mean Corpuscular Volume 94.2 fL (78.0-98.0); Platelet Count 153 thou/uL (130-400); RBC Distribution Width 12.9 % (11.5-14.5); Red Blood Cell (RBC) Count 3.48 mill/uL (4.20-5.40); White Blood Cell (WBC) Count 17.3 thou/uL (4.8-10.8)
[2021-08-30 06:30] LABS: ALT (SGPT) 7 U/L (8-55); AST (SGOT) 18 U/L (5-34); Albumin 4.6 g/dL (3.4-4.8); Alkaline Phosphatase 51 U/L (40-110); Anion Gap 15 mmol/L (10-20); BUN (Urea Nitrogen) 27 mg/dL (9.8-20.1); Bilirubin, Total 1.4 mg/dL (0.2-1.2); Calc. Creatinine Clearance 0 mL/min (70-130); Calcium 9.2 mg/dL (7.8-10.44); Carbon Dioxide 27 mmol/L (23-31); Chloride 96 mmol/L (98-107); Globulin 3.1 g/dL (2.4-3.5); Glucose 198 mg/dL (83-110); Magnesium 1.6 mg/dL (1.6-2.6); Potassium 4.1 mmol/L (3.5-5.1); Protein, Total 7.7 g/dL (5.8-8.1); Sodium 134 mmol/L (136-145)
[2021-08-30 06:52] LABS: CKMB 0.6 ng/mL (0-6.6)
[2021-08-30] MEDS ORDERED: Heparin 10,000 UNITS/ 10 ML VIAL ONE (08:58)
[2021-08-30 09:30] LABS: Troponin I 0.173 ng/mL (< 0.028)
[2021-08-30] MEDS ORDERED: Ondansetron PF 4 MG/2 ML Vial IVP PRN (09:38)
[2021-08-30] MEDS ORDERED: Ondansetron ODT 4 MG TAB PO PRN (09:38)
[2021-08-30] MEDS ORDERED: Acetaminophen 325 MG TAB PO PRN (09:38)
[2021-08-30] MEDS ORDERED: Carvedilol 6.25 MG TAB PO SCH (10:00)
[2021-08-30] MEDS ORDERED: Amlodipine 10 MG TAB PO SCH (10:00)
[2021-08-30] MEDS ORDERED: Nitroglycerin 50 MG/250 ML BOT 250 ML IVPB SCH (11:00)
[2021-08-30 12:00] LABS: SARS-CoV-2 PCR by NAA Not Detected (NotDetected)
[2021-08-30] MEDS: hydrALAZINE 25 MG TAB PO SCH ×2 (16:19→20:25)
[2021-08-30] MEDS: Heparin 5,000 UNITS/ML VIAL SC SCH ×2 (16:19→20:25)
[2021-08-30] MEDS: Carvedilol 6.25 MG TAB PO SCH (18:18)
[2021-08-30] MEDS: Atorvastatin Calcium 20 MG TAB PO SCH (20:26)
[2021-08-31] MEDS: Levothyroxine Sodium 125 MCG TAB PO SCH (06:05)
[2021-08-31] MEDS ORDERED: Clopidogrel Bisulfate 300 MG TAB PO SCH (06:45)
[2021-08-31] MEDS ORDERED: Valsartan 80 MG TAB PO SCH (09:00)
[2021-08-31 09:08] LABS: Anion Gap 14 mmol/L (10-20); BUN (Urea Nitrogen) 24 mg/dL (9.8-20.1); Calc. Creatinine Clearance 24 mL/min (70-130); Calcium 9.2 mg/dL (7.8-10.44); Carbon Dioxide 27 mmol/L (23-31); Chloride 96 mmol/L (98-107); Glucose 101 mg/dL (83-110); Potassium 3.6 mmol/L (3.5-5.1); Sodium 133 mmol/L (136-145)
[2021-08-31] MEDS: Heparin 5,000 UNITS/ML VIAL SC SCH ×3 (09:23→20:14)
[2021-08-31] MEDS: Aspirin 81 mg Enteric Coated Tablet PO SCH (09:23)
[2021-08-31] MEDS: Carvedilol 6.25 MG TAB PO SCH ×2 (09:23→17:05)
[2021-08-31] MEDS: Amlodipine 10 MG TAB PO SCH (09:23)
[2021-08-31] MEDS: FLUoxetine HCl 20 MG CAP PO SCH (09:24)
[2021-08-31 09:47] LABS: Band 4 % (5-11); Hemoglobin 9.4 g/dL (12.0-16.0); Lymphocytes 20 % (21-51); MDiff Complete? YES; Mean Corpuscular HGB CONC 32.7 g/dL (32.0-36.0); Mean Corpuscular Hemoglobin 30.5 pg (27.0-31.0); Mean Corpuscular Volume 93.1 fL (78.0-98.0); Monocytes 7 % (0-10); Myelocyte 1 % (0-0); Neutrophil 68 % (42-75); Platelet Count 118 thou/uL (130-400); Platelet Morphology Comment Appears Decreased; Polychromasia SLIGHT = 2-3 cells (100X) (0-2/hpf); RBC Distribution Width 12.8 % (11.5-14.5); Red Blood Cell (RBC) Count 3.07 mill/uL (4.20-5.40); White Blood Cell (WBC) Count 7.6 thou/uL (4.8-10.8)
[2021-08-31] MEDS: Atorvastatin Calcium 20 MG TAB PO SCH (20:14)
[2021-09-01 04:56] LABS: #Eosinphils 0.1 thou/uL (0.0-0.7); #Lymphocytes 1.7 thou/uL (1.20-3.40); #Monocytes 0.6 thou/uL (0.11-0.59); #Neutrophils 4.7 thou/uL (1.40-6.50); %Basophils 0.5 % (0.0-1.0); %Eosinophils 1.1 % (0.0-10.0); %Lymphocytes 24.1 % (21.0-51.0); %Monocytes 8.6 % (0.0-10.0); %Neutrophils 65.6 % (42.0-75.0); Hemoglobin 8.7 g/dL (12.0-16.0); Mean Corpuscular HGB CONC 33.7 g/dL (32.0-36.0); Mean Corpuscular Hemoglobin 31.1 pg (27.0-31.0); Mean Corpuscular Volume 92.4 fL (78.0-98.0); Mean Platelet Volume 9.2 fL (7.4-10.4); Platelet Count 127 thou/uL (130-400); RBC Distribution Width 12.6 % (11.5-14.5); Red Blood Cell (RBC) Count 2.79 mill/uL (4.20-5.40); White Blood Cell (WBC) Count 7.2 thou/uL (4.8-10.8)
[2021-09-01 05:15] LABS: Anion Gap 14 mmol/L (10-20); BUN (Urea Nitrogen) 33 mg/dL (9.8-20.1); Calc. Creatinine Clearance 20 mL/min (70-130); Carbon Dioxide 28 mmol/L (23-31); Chloride 97 mmol/L (98-107); Glucose 103 mg/dL (83-110); Potassium 3.4 mmol/L (3.5-5.1); Sodium 136 mmol/L (136-145)
[2021-09-01] MEDS: Levothyroxine Sodium 125 MCG TAB PO SCH (05:42)
[2021-09-01] MEDS ORDERED: Epoetin (ESRD) 20,000 UNITS/ML SC SCH (10:30)
[2021-09-01] MEDS ORDERED: Heparin 10,000 UNITS/ 10 ML VIAL ONE (10:54)
[2021-09-01] MEDS: Aspirin 81 mg Enteric Coated Tablet PO SCH (11:51)
[2021-09-01] MEDS: FLUoxetine HCl 20 MG CAP PO SCH (11:51)
[2021-09-01] MEDS: Clopidogrel Bisulfate 75 MG TAB PO SCH (11:52)
[2021-09-01] MEDS: Amlodipine 10 MG TAB PO SCH (11:52)
[2021-09-01] MEDS: Carvedilol 25 MG TAB PO SCH ×2 (11:52→16:55)
[2021-09-01] MEDS: Heparin 5,000 UNITS/ML VIAL SC SCH ×2 (11:58→21:06)
[2021-09-01] MEDS: Carvedilol 6.25 MG TAB PO SCH (11:58)
[2021-09-01] MEDS ORDERED: Ampicillin/Sulbactam 1.5 GM in Sodium Chloride 0.9% 100 ML IVPB SCH (12:00)
[2021-09-01] MEDS: EPOETIN ALFA-EPBX (ESRD) 4,000 UNIT/ML VIAL SC SCH (15:38)
[2021-09-01] MEDS: Ferrous Sulfate 325 MG TAB PO SCH (16:55)
[2021-09-01] MEDS: Atorvastatin Calcium 20 MG TAB PO SCH (21:06)
[2021-09-02 04:25] LABS: #Basophils 0.1 thou/uL (0.0-0.2); #Eosinphils 0.1 thou/uL (0.0-0.7); #Lymphocytes 1.5 thou/uL (1.20-3.40); #Monocytes 0.6 thou/uL (0.11-0.59); #Neutrophils 4.6 thou/uL (1.40-6.50); %Basophils 0.8 % (0.0-1.0); %Eosinophils 0.9 % (0.0-10.0); %Lymphocytes 22.3 % (21.0-51.0); %Monocytes 8.2 % (0.0-10.0); %Neutrophils 67.8 % (42.0-75.0); Hemoglobin 8.8 g/dL (12.0-16.0); Mean Corpuscular HGB CONC 33.9 g/dL (32.0-36.0); Mean Corpuscular Hemoglobin 31.1 pg (27.0-31.0); Mean Corpuscular Volume 91.7 fL (78.0-98.0); Mean Platelet Volume 8.8 fL (7.4-10.4); Platelet Count 120 thou/uL (130-400); RBC Distribution Width 12.6 % (11.5-14.5); Red Blood Cell (RBC) Count 2.82 mill/uL (4.20-5.40); White Blood Cell (WBC) Count 6.8 thou/uL (4.8-10.8)
[2021-09-02 04:45] LABS: Anion Gap 14 mmol/L (10-20); BUN (Urea Nitrogen) 20 mg/dL (9.8-20.1); Calc. Creatinine Clearance 26 mL/min (70-130); Carbon Dioxide 29 mmol/L (23-31); Chloride 99 mmol/L (98-107); Glucose 97 mg/dL (83-110); Potassium 3.6 mmol/L (3.5-5.1); Sodium 138 mmol/L (136-145)
[2021-09-02] MEDS: Levothyroxine Sodium 125 MCG TAB PO SCH (05:11)
[2021-09-02] MEDS: Ferrous Sulfate 325 MG TAB PO SCH ×2 (10:23→18:14)
[2021-09-02] MEDS: Carvedilol 25 MG TAB PO SCH ×2 (10:23→18:14)
[2021-09-02] MEDS: Aspirin 81 mg Enteric Coated Tablet PO SCH (10:23)
[2021-09-02] MEDS: Clopidogrel Bisulfate 75 MG TAB PO SCH (10:24)
[2021-09-02] MEDS: FLUoxetine HCl 20 MG CAP PO SCH (10:24)
[2021-09-02] MEDS: Amlodipine 10 MG TAB PO SCH (10:24)
[2021-09-02] MEDS: Heparin 5,000 UNITS/ML VIAL SC SCH (10:57)
[2021-09-02] MEDS: Atorvastatin Calcium 20 MG TAB PO SCH (21:36)
[2021-09-03 04:35] LABS: #Eosinphils 0.1 thou/uL (0.0-0.7); #Lymphocytes 1.6 thou/uL (1.20-3.40); #Monocytes 0.5 thou/uL (0.11-0.59); #Neutrophils 3.5 thou/uL (1.40-6.50); %Basophils 0.1 % (0.0-1.0); %Eosinophils 1.2 % (0.0-10.0); %Lymphocytes 27.9 % (21.0-51.0); %Neutrophils 61.9 % (42.0-75.0); Hemoglobin 8.7 g/dL (12.0-16.0); Mean Corpuscular HGB CONC 33.9 g/dL (32.0-36.0); Mean Corpuscular Hemoglobin 30.9 pg (27.0-31.0); Platelet Count 126 thou/uL (130-400); RBC Distribution Width 12.5 % (11.5-14.5); Red Blood Cell (RBC) Count 2.83 mill/uL (4.20-5.40); White Blood Cell (WBC) Count 5.6 thou/uL (4.8-10.8)
[2021-09-03 04:57] LABS: Anion Gap 14 mmol/L (10-20); BUN (Urea Nitrogen) 30 mg/dL (9.8-20.1); Calc. Creatinine Clearance 20 mL/min (70-130); Calcium 9.4 mg/dL (7.8-10.44); Carbon Dioxide 28 mmol/L (23-31); Chloride 98 mmol/L (98-107); Glucose 99 mg/dL (83-110); Potassium 3.7 mmol/L (3.5-5.1); Sodium 136 mmol/L (136-145)
[2021-09-03] MEDS: Levothyroxine Sodium 125 MCG TAB PO SCH (07:06)
[2021-09-03] MEDS: Heparin 5,000 UNITS/ML VIAL SC SCH ×3 (07:07→21:22)
[2021-09-03] MEDS: Clopidogrel Bisulfate 75 MG TAB PO SCH (09:59)
[2021-09-03] MEDS: Aspirin 81 mg Enteric Coated Tablet PO SCH (09:59)
[2021-09-03] MEDS: FLUoxetine HCl 20 MG CAP PO SCH (10:02)
[2021-09-03] MEDS: Carvedilol 25 MG TAB PO SCH ×2 (10:02→18:28)
[2021-09-03] MEDS: Ferrous Sulfate 325 MG TAB PO SCH ×2 (10:03→18:32)
[2021-09-03] MEDS: Amlodipine 10 MG TAB PO SCH (10:04)
[2021-09-03] MEDS: Atorvastatin Calcium 20 MG TAB PO SCH (21:22)
[2021-09-04] MEDS: Levothyroxine Sodium 125 MCG TAB PO SCH (05:13)
[2021-09-04 05:30] LABS: #Eosinphils 0.1 thou/uL (0.0-0.7); #Lymphocytes 1.4 thou/uL (1.20-3.40); #Monocytes 0.4 thou/uL (0.11-0.59); #Neutrophils 3.7 thou/uL (1.40-6.50); %Basophils 0.1 % (0.0-1.0); %Eosinophils 1.4 % (0.0-10.0); %Lymphocytes 24.7 % (21.0-51.0); %Neutrophils 65.8 % (42.0-75.0); Hemoglobin 8.4 g/dL (12.0-16.0); Mean Corpuscular HGB CONC 33.8 g/dL (32.0-36.0); Mean Corpuscular Hemoglobin 30.9 pg (27.0-31.0); Mean Corpuscular Volume 91.6 fL (78.0-98.0); Mean Platelet Volume 9.1 fL (7.4-10.4); Platelet Count 130 thou/uL (130-400); RBC Distribution Width 12.7 % (11.5-14.5); Red Blood Cell (RBC) Count 2.73 mill/uL (4.20-5.40); White Blood Cell (WBC) Count 5.5 thou/uL (4.8-10.8)
[2021-09-04 05:58] LABS: Anion Gap 16 mmol/L (10-20); BUN (Urea Nitrogen) 37 mg/dL (9.8-20.1); Calc. Creatinine Clearance 18 mL/min (70-130); Calcium 9.3 mg/dL (7.8-10.44); Carbon Dioxide 26 mmol/L (23-31); Chloride 97 mmol/L (98-107); Glucose 92 mg/dL (83-110); Potassium 3.5 mmol/L (3.5-5.1); Sodium 135 mmol/L (136-145)
[2021-09-04] MEDS: Heparin 5,000 UNITS/ML VIAL SC SCH ×2 (09:53→21:19)
[2021-09-04] MEDS: Aspirin 81 mg Enteric Coated Tablet PO SCH (12:09)
[2021-09-04] MEDS: Carvedilol 25 MG TAB PO SCH ×2 (12:09→18:35)
[2021-09-04] MEDS: Ferrous Sulfate 325 MG TAB PO SCH ×2 (12:09→18:35)
[2021-09-04] MEDS: Clopidogrel Bisulfate 75 MG TAB PO SCH (12:10)
[2021-09-04] MEDS: Icosapent Ethyl 1 GM CAPSULE PO SCH ×2 (12:10→21:19)
[2021-09-04] MEDS: Amlodipine 10 MG TAB PO SCH (12:11)
[2021-09-04] MEDS: FLUoxetine HCl 20 MG CAP PO SCH (12:11)
[2021-09-04] MEDS: Atorvastatin Calcium 20 MG TAB PO SCH (21:19)
[2021-09-04] MEDS ORDERED: Famotidine 20 MG TAB PO SCH (22:45)
[2021-09-05] MEDS: Levothyroxine Sodium 125 MCG TAB PO SCH (05:08)
[2021-09-05 05:23] LABS: #Lymphocytes 1.5 thou/uL (1.20-3.40); #Monocytes 0.5 thou/uL (0.11-0.59); %Basophils 0.5 % (0.0-1.0); %Eosinophils 0.7 % (0.0-10.0); %Lymphocytes 29.3 % (21.0-51.0); %Neutrophils 59.5 % (42.0-75.0); Hemoglobin 8.4 g/dL (12.0-16.0); Mean Corpuscular HGB CONC 34.5 g/dL (32.0-36.0); Mean Corpuscular Hemoglobin 31.3 pg (27.0-31.0); Mean Corpuscular Volume 90.7 fL (78.0-98.0); Mean Platelet Volume 9.5 fL (7.4-10.4); Platelet Count 115 thou/uL (130-400); RBC Distribution Width 12.9 % (11.5-14.5); Red Blood Cell (RBC) Count 2.68 mill/uL (4.20-5.40); White Blood Cell (WBC) Count 5.1 thou/uL (4.8-10.8)
[2021-09-05 05:33] LABS: Anion Gap 16 mmol/L (10-20); BUN (Urea Nitrogen) 44 mg/dL (9.8-20.1); Calc. Creatinine Clearance 16 mL/min (70-130); Calcium 9.2 mg/dL (7.8-10.44); Carbon Dioxide 25 mmol/L (23-31); Chloride 98 mmol/L (98-107); Glucose 90 mg/dL (83-110); Potassium 3.8 mmol/L (3.5-5.1); Sodium 135 mmol/L (136-145)
[2021-09-05] MEDS: Carvedilol 25 MG TAB PO SCH ×2 (10:01→17:33)
[2021-09-05] MEDS: Icosapent Ethyl 1 GM CAPSULE PO SCH ×2 (10:01→20:45)
[2021-09-05] MEDS: FLUoxetine HCl 20 MG CAP PO SCH (10:02)
[2021-09-05] MEDS: Clopidogrel Bisulfate 75 MG TAB PO SCH (10:02)
[2021-09-05] MEDS: Amlodipine 10 MG TAB PO SCH (10:02)
[2021-09-05] MEDS: Ferrous Sulfate 325 MG TAB PO SCH ×2 (10:03→17:33)
[2021-09-05] MEDS: Aspirin 81 mg Enteric Coated Tablet PO SCH (10:03)
[2021-09-05] MEDS: Heparin 5,000 UNITS/ML VIAL SC SCH ×2 (10:03→20:44)
[2021-09-05] MEDS: Atorvastatin Calcium 20 MG TAB PO SCH (20:44)
[2021-09-05] MEDS: Famotidine 20 MG TAB PO SCH (20:44)
[2021-09-05 23:11] LABS: SARS-CoV-2 PCR by NAA Not Detected (NotDetected)
[2021-09-06] MEDS: Levothyroxine Sodium 125 MCG TAB PO SCH (06:14)
[2021-09-06 06:19] LABS: #Eosinphils 0.1 thou/uL (0.0-0.7); #Lymphocytes 1.5 thou/uL (1.20-3.40); #Monocytes 0.5 thou/uL (0.11-0.59); %Basophils 0.1 % (0.0-1.0); %Eosinophils 1.3 % (0.0-10.0); %Lymphocytes 29.7 % (21.0-51.0); %Monocytes 9.7 % (0.0-10.0); %Neutrophils 59.1 % (42.0-75.0); Anion Gap 18 mmol/L (10-20); BUN (Urea Nitrogen) 47 mg/dL (9.8-20.1); Calc. Creatinine Clearance 16 mL/min (70-130); Calcium 9.3 mg/dL (7.8-10.44); Carbon Dioxide 22 mmol/L (23-31); Chloride 97 mmol/L (98-107); Glucose 97 mg/dL (83-110); Hemoglobin 8.7 g/dL (12.0-16.0); Mean Corpuscular HGB CONC 33.8 g/dL (32.0-36.0); Mean Corpuscular Hemoglobin 30.7 pg (27.0-31.0); Mean Platelet Volume 9.2 fL (7.4-10.4); Potassium 3.5 mmol/L (3.5-5.1); RBC Distribution Width 13.1 % (11.5-14.5); Red Blood Cell (RBC) Count 2.82 mill/uL (4.20-5.40); Sodium 133 mmol/L (136-145); White Blood Cell (WBC) Count 5.1 thou/uL (4.8-10.8)
[2021-09-06] MEDS ORDERED: Tuberculin PPD 0.1 ML VIAL I-DERMAL SCH ×3 (08:30→12:00)
[2021-09-06 09:20] LABS: Platelet Count 118 thou/uL (130-400)
[2021-09-06] MEDS ORDERED: Heparin 10,000 UNITS/ 10 ML VIAL ONE (11:11)
[2021-09-06 14:02] LABS: Hep C IgG Ab Non-Reactive (NonReactive); Hep C Index 0.36 S/CO (0-0.79)
[2021-09-06] MEDS: Ferrous Sulfate 325 MG TAB PO SCH ×2 (14:14→17:00)
[2021-09-06] MEDS: Icosapent Ethyl 1 GM CAPSULE PO SCH ×2 (14:14→20:38)
[2021-09-06] MEDS: Aspirin 81 mg Enteric Coated Tablet PO SCH (14:14)
[2021-09-06] MEDS: FLUoxetine HCl 20 MG CAP PO SCH (14:15)
[2021-09-06] MEDS: Clopidogrel Bisulfate 75 MG TAB PO SCH (14:15)
[2021-09-06] MEDS: Carvedilol 25 MG TAB PO SCH ×2 (14:18→17:00)
[2021-09-06] MEDS: Amlodipine 10 MG TAB PO SCH (14:18)
[2021-09-06] MEDS: Heparin 5,000 UNITS/ML VIAL SC SCH ×2 (14:19→20:39)
[2021-09-06 14:56] LABS: HBSAB Concentration Less than 8.00 mIU/mL; HBSAg Index 0.36 S/CO (0-0.99); Hep B Core Total Ab Non-Reactive (NonReactive); Hep B Core Total Index 0.08 S/CO (0-0.79); Hep B Surf AB Non-Reactive (NonReactive); Hep B Surf Ag Non-Reactive S/CO (NonReactive); Hep C IgG Ab Non-Reactive (NonReactive); Hep C Index 0.34 S/CO (0-0.79)
[2021-09-06] MEDS: Famotidine 20 MG TAB PO SCH (20:39)
[2021-09-06] MEDS: Atorvastatin Calcium 20 MG TAB PO SCH (20:39)
[2021-09-07] MEDS: Levothyroxine Sodium 125 MCG TAB PO SCH (05:49)
[2021-09-07 07:22] LABS: #Eosinphils 0.1 thou/uL (0.0-0.7); #Lymphocytes 1.5 thou/uL (1.20-3.40); #Monocytes 0.4 thou/uL (0.11-0.59); #Neutrophils 2.7 thou/uL (1.40-6.50); %Basophils 0.5 % (0.0-1.0); %Eosinophils 1.2 % (0.0-10.0); %Monocytes 9.1 % (0.0-10.0); %Neutrophils 58.1 % (42.0-75.0); Hemoglobin 9.1 g/dL (12.0-16.0); Mean Corpuscular HGB CONC 34.1 g/dL (32.0-36.0); Mean Corpuscular Hemoglobin 31.1 pg (27.0-31.0); Mean Corpuscular Volume 91.4 fL (78.0-98.0); Mean Platelet Volume 8.9 fL (7.4-10.4); Platelet Count 123 thou/uL (130-400); RBC Distribution Width 13.1 % (11.5-14.5); Red Blood Cell (RBC) Count 2.93 mill/uL (4.20-5.40); White Blood Cell (WBC) Count 4.7 thou/uL (4.8-10.8)
[2021-09-07 07:39] LABS: Anion Gap 15 mmol/L (10-20); BUN (Urea Nitrogen) 21 mg/dL (9.8-20.1); Calc. Creatinine Clearance 23 mL/min (70-130); Calcium 9.5 mg/dL (7.8-10.44); Carbon Dioxide 28 mmol/L (23-31); Chloride 97 mmol/L (98-107); Glucose 96 mg/dL (83-110); Potassium 3.6 mmol/L (3.5-5.1); Sodium 136 mmol/L (136-145)
[2021-09-07] MEDS: Ferrous Sulfate 325 MG TAB PO SCH ×2 (08:19→16:51)
[2021-09-07] MEDS: Icosapent Ethyl 1 GM CAPSULE PO SCH ×2 (08:20→21:12)
[2021-09-07] MEDS: FLUoxetine HCl 20 MG CAP PO SCH (08:20)
[2021-09-07] MEDS: Clopidogrel Bisulfate 75 MG TAB PO SCH (08:20)
[2021-09-07] MEDS: Aspirin 81 mg Enteric Coated Tablet PO SCH (08:20)
[2021-09-07] MEDS: Amlodipine 10 MG TAB PO SCH (08:20)
[2021-09-07] MEDS: Heparin 5,000 UNITS/ML VIAL SC SCH ×2 (08:21→21:11)
[2021-09-07] MEDS: Carvedilol 25 MG TAB PO SCH ×2 (08:22→16:52)
[2021-09-07 15:17] VITALS: BMI 35.7
[2021-09-07] MEDS: Famotidine 20 MG TAB PO SCH (21:12)
[2021-09-07] MEDS: Atorvastatin Calcium 20 MG TAB PO SCH (21:12)
[2021-09-08 05:25] LABS: Anion Gap 16 mmol/L (10-20); BUN (Urea Nitrogen) 27 mg/dL (9.8-20.1); Calc. Creatinine Clearance 19 mL/min (70-130); Calcium 9.4 mg/dL (7.8-10.44); Carbon Dioxide 25 mmol/L (23-31); Chloride 95 mmol/L (98-107); Glucose 97 mg/dL (83-110); Potassium 3.3 mmol/L (3.5-5.1); Sodium 133 mmol/L (136-145)
[2021-09-08] MEDS: Levothyroxine Sodium 125 MCG TAB PO SCH (05:59)
[2021-09-08 06:19] LABS: #Lymphocytes 1.5 thou/uL (1.20-3.40); #Monocytes 0.5 thou/uL (0.11-0.59); #Neutrophils 2.7 thou/uL (1.40-6.50); %Basophils 0.1 % (0.0-1.0); %Monocytes 9.3 % (0.0-10.0); %Neutrophils 57.5 % (42.0-75.0); Hemoglobin 8.7 g/dL (12.0-16.0); Mean Corpuscular HGB CONC 33.3 g/dL (32.0-36.0); Mean Corpuscular Hemoglobin 30.7 pg (27.0-31.0); Mean Corpuscular Volume 92.2 fL (78.0-98.0); Mean Platelet Volume 9.5 fL (7.4-10.4); Platelet Count 114 thou/uL (130-400); RBC Distribution Width 13.1 % (11.5-14.5); Red Blood Cell (RBC) Count 2.84 mill/uL (4.20-5.40); White Blood Cell (WBC) Count 4.8 thou/uL (4.8-10.8)
[2021-09-08] MEDS ORDERED: READ PPD TEST SITE PO SCH (09:00)
[2021-09-08] MEDS ORDERED: Heparin 10,000 UNITS/ 10 ML VIAL ONE (09:20)
[2021-09-08 12:11] LABS: Hep B Surface AG-Rflx Sendout Negative (Negative); Hepatitis B Core Total Negative (Negative); Hepatitis B Surface AB-Sendout Non Reactive (.)
[2021-09-08] MEDS: Icosapent Ethyl 1 GM CAPSULE PO SCH ×2 (13:23→20:17)
[2021-09-08] MEDS: Aspirin 81 mg Enteric Coated Tablet PO SCH (13:23)
[2021-09-08] MEDS: Clopidogrel Bisulfate 75 MG TAB PO SCH (13:24)
[2021-09-08] MEDS: Amlodipine 10 MG TAB PO SCH (13:24)
[2021-09-08] MEDS: Carvedilol 25 MG TAB PO SCH ×2 (13:24→17:01)
[2021-09-08] MEDS: FLUoxetine HCl 20 MG CAP PO SCH (13:24)
[2021-09-08] MEDS: Ferrous Sulfate 325 MG TAB PO SCH ×2 (13:24→17:03)
[2021-09-08] MEDS: Heparin 5,000 UNITS/ML VIAL SC SCH ×2 (13:25→20:17)
[2021-09-08] MEDS: EPOETIN ALFA-EPBX (ESRD) 4,000 UNIT/ML VIAL SC SCH (14:34)
[2021-09-08] MEDS: Famotidine 20 MG TAB PO SCH (20:17)
[2021-09-08] MEDS: Atorvastatin Calcium 20 MG TAB PO SCH (20:18)
[2021-09-09] MEDS: Levothyroxine Sodium 125 MCG TAB PO SCH (05:05)
[2021-09-09 05:09] LABS: #Lymphocytes 1.7 thou/uL (1.20-3.40); #Monocytes 0.4 thou/uL (0.11-0.59); #Neutrophils 2.4 thou/uL (1.40-6.50); %Basophils 0.3 % (0.0-1.0); %Eosinophils 1.1 % (0.0-10.0); %Lymphocytes 37.4 % (21.0-51.0); %Neutrophils 53.3 % (42.0-75.0); Hemoglobin 9.2 g/dL (12.0-16.0); Mean Corpuscular HGB CONC 34.1 g/dL (32.0-36.0); Mean Corpuscular Hemoglobin 31.6 pg (27.0-31.0); Mean Corpuscular Volume 92.6 fL (78.0-98.0); Mean Platelet Volume 9.6 fL (7.4-10.4); Platelet Count 122 thou/uL (130-400); RBC Distribution Width 13.4 % (11.5-14.5); White Blood Cell (WBC) Count 4.5 thou/uL (4.8-10.8)
[2021-09-09 05:29] LABS: Anion Gap 10 mmol/L (10-20); BUN (Urea Nitrogen) 14 mg/dL (9.8-20.1); Calc. Creatinine Clearance 26 mL/min (70-130); Calcium 9.3 mg/dL (7.8-10.44); Carbon Dioxide 32 mmol/L (23-31); Chloride 98 mmol/L (98-107); Glucose 90 mg/dL (83-110); Potassium 3.6 mmol/L (3.5-5.1); Sodium 136 mmol/L (136-145)
[2021-09-09 07:55] VITALS: TEMP 97.9
[2021-09-09] MEDS: Ferrous Sulfate 325 MG TAB PO SCH (08:42)
[2021-09-09] MEDS: Aspirin 81 mg Enteric Coated Tablet PO SCH (08:43)
[2021-09-09] MEDS: Amlodipine 10 MG TAB PO SCH (08:43)
[2021-09-09] MEDS: FLUoxetine HCl 20 MG CAP PO SCH (08:43)
[2021-09-09] MEDS: Icosapent Ethyl 1 GM CAPSULE PO SCH (08:43)
[2021-09-09] MEDS: Carvedilol 25 MG TAB PO SCH (08:43)
[2021-09-09] MEDS: Heparin 5,000 UNITS/ML VIAL SC SCH (08:44)
[2021-09-09 11:48] VITALS: BP 158/67
== END 2021-09-09 11:51 | DRG 280 ==
LOC: ERS 05:37 → CCU 07:53 → 2NO 08-31 20:33
PROVIDERS: ADMIT Internal Medicine; ATTEND Family Medicine
PROC: 5A1D70Z Performance of Urinary Filtration, Intermittent, Less than 6 Hours Per Day (ICD-10-PCS; principal; 2021-08-30)
PROC: 5A09357 Assistance with Respiratory Ventilation, Less than 24 Consecutive Hours, Continuous Positive Airway Pressure (ICD-10-PCS; 2021-08-30)
DX: I13.2 Hypertensive heart and chronic kidney disease with heart failure and with stage 5 chronic kidney disease, or end stage renal disease (principal); J96.01 Acute respiratory failure with hypoxia; I21.4 Non-ST elevation (NSTEMI) myocardial infarction; N17.0 Acute kidney failure with tubular necrosis; I50.33 Acute on chronic diastolic (congestive) heart failure; N18.6 End stage renal disease; N39.0 Urinary tract infection, site not specified; I47.2 Ventricular tachycardia; Z68.41 Body mass index [BMI] 40.0-44.9, adult; I25.10 Atherosclerotic heart disease of native coronary artery without angina pectoris; B96.1 Klebsiella pneumoniae [K. pneumoniae] as the cause of diseases classified elsewhere; E03.9 Hypothyroidism, unspecified; E78.5 Hyperlipidemia, unspecified; D72.829 Elevated white blood cell count, unspecified; I45.10 Unspecified right bundle-branch block; R00.1 Bradycardia, unspecified; E66.01 Morbid (severe) obesity due to excess calories; D63.1 Anemia in chronic kidney disease; Z79.899 Other long term (current) drug therapy; Z79.82 Long term (current) use of aspirin; Z79.890 Hormone replacement therapy; Z99.2 Dependence on renal dialysis
CPT/HCPCS: 36415; 36600; 71045; 80048; 82553; 82805; 83735; 83880; 84484; 85025; 86580; 86704; 86705; 86706; 86707; 86803; 87340; 87350; 87521; 90935; 93005; 94660; 96374; 96375; G0257; J0295; J1644; J3490; Q5105; U0003; U0005

== ENCOUNTER 2021-09-21 17:18 | Inpatient (IN) | payer MEDICARE, OTHER ==
[2021-09-21] MEDS ORDERED: Fentanyl 100 MCG/2 ML VIAL ONE (18:15)
[2021-09-21 18:28] LABS: #Monocytes 0.8 thou/uL (0.11-0.59); #Neutrophils 10.3 thou/uL (1.40-6.50); %Basophils 0.1 % (0.0-1.0); %Eosinophils 0.3 % (0.0-10.0); %Monocytes 5.8 % (0.0-10.0); %Neutrophils 78.8 % (42.0-75.0); Hemoglobin 10.5 g/dL (12.0-16.0); Mean Corpuscular HGB CONC 34.2 g/dL (32.0-36.0); Mean Corpuscular Hemoglobin 31.7 pg (27.0-31.0); Mean Corpuscular Volume 92.6 fL (78.0-98.0); Mean Platelet Volume 8.8 fL (7.4-10.4); Platelet Count 155 thou/uL (130-400); RBC Distribution Width 14.4 % (11.5-14.5); Red Blood Cell (RBC) Count 3.31 mill/uL (4.20-5.40); White Blood Cell (WBC) Count 13.1 thou/uL (4.8-10.8)
[2021-09-21 18:39] LABS: INR-International Normal Ratio 1.1; PTT 30.8 sec (22.9-36.1); Prothrombin Time 14.5 sec (12.0-14.7)
[2021-09-21 18:46] LABS: Albumin 4.8 g/dL (3.4-4.8)
[2021-09-21 18:48] LABS: Calcium 9.5 mg/dL (7.8-10.44); Chloride 95 mmol/L (98-107); Potassium 3.3 mmol/L (3.5-5.1); Sodium 134 mmol/L (136-145)
[2021-09-21 18:49] LABS: Globulin 3.5 g/dL (2.4-3.5); Glucose 106 mg/dL (83-110); Protein, Total 8.3 g/dL (5.8-8.1)
[2021-09-21 18:51] LABS: Anion Gap 14 mmol/L (10-20); Bilirubin, Total 2.3 mg/dL (0.2-1.2); Carbon Dioxide 28 mmol/L (23-31)
[2021-09-21 18:52] LABS: Alkaline Phosphatase 48 U/L (40-110)
[2021-09-21 18:53] LABS: BUN (Urea Nitrogen) 31 mg/dL (9.8-20.1); Calc. Creatinine Clearance 0 mL/min (70-130)
[2021-09-21 18:54] LABS: AST (SGOT) 23 U/L (5-34)
[2021-09-21 18:55] LABS: ALT (SGPT) 12 U/L (8-55)
[2021-09-21] MEDS ORDERED: Dextrose 50% Abboject 50 ML SYRINGE SLOW IVP PRN (19:45)
[2021-09-21] MEDS ORDERED: Ondansetron PF 4 MG/2 ML Vial IVP PRN (19:45)
[2021-09-21] MEDS ORDERED: hydrALAZINE 20 MG/ML VIAL SLOW IVP PRN (19:45)
[2021-09-21] MEDS ORDERED: Ondansetron ODT 4 MG TAB PO PRN (19:45)
[2021-09-21] MEDS ORDERED: Dextrose 5% in Water 1,000 ML IV PRN (19:45)
[2021-09-21] MEDS ORDERED: Sodium Chloride 0.9% 1,000 ML IV SCH (19:45)
[2021-09-21] MEDS ORDERED: Cyclobenzaprine 10 MG TAB PO PRN (19:50)
[2021-09-21 19:57] LABS: Phosphorus 2.9 mg/dL (2.3-4.7)
[2021-09-21 19:59] LABS: Magnesium 1.8 mg/dL (1.6-2.6)
[2021-09-21] MEDS ORDERED: Acetaminophen 500 MG TAB PO SCH (20:00)
[2021-09-21] MEDS ORDERED: Morphine 4 MG/ML VIAL SLOW IVP PRN (20:10)
[2021-09-21 20:26] VITALS: BMI 37.3
[2021-09-21] MEDS ORDERED: Magnesium 2 GM/50 ML(in water) 2 GM in Premix Bag 1 BAG IVPB SCH (21:00)
[2021-09-21] MEDS: Famotidine/PF 20 mg/2ml Vial SLOW IVP SCH (22:03)
[2021-09-21] MEDS: Acetaminophen 500 MG TAB PO SCH (22:04)
[2021-09-21] MEDS: Gabapentin 100 MG CAP PO SCH (22:05)
[2021-09-21] MEDS: Senokot S 8.6-50 MG TAB PO SCH (22:12)
[2021-09-22] MEDS: Acetaminophen 500 MG TAB PO SCH ×4 (04:11→21:18)
[2021-09-22 05:57] LABS: #Lymphocytes 1.9 thou/uL (1.20-3.40); #Monocytes 0.7 thou/uL (0.11-0.59); %Basophils 0.2 % (0.0-1.0); %Eosinophils 0.3 % (0.0-10.0); %Lymphocytes 24.8 % (21.0-51.0); %Monocytes 8.8 % (0.0-10.0); Hemoglobin 8.5 g/dL (12.0-16.0); Mean Corpuscular HGB CONC 34.4 g/dL (32.0-36.0); Mean Platelet Volume 8.7 fL (7.4-10.4); Platelet Count 123 thou/uL (130-400); RBC Distribution Width 14.6 % (11.5-14.5); Red Blood Cell (RBC) Count 2.66 mill/uL (4.20-5.40); White Blood Cell (WBC) Count 7.6 thou/uL (4.8-10.8)
[2021-09-22 06:36] LABS: Anion Gap 15 mmol/L (10-20); BUN (Urea Nitrogen) 39 mg/dL (9.8-20.1); Calc. Creatinine Clearance 25 mL/min (70-130); Calcium 8.5 mg/dL (7.8-10.44); Carbon Dioxide 29 mmol/L (23-31); Chloride 97 mmol/L (98-107); Glucose 108 mg/dL (83-110); Magnesium 2.3 mg/dL (1.6-2.6); Phosphorus 5.7 mg/dL (2.3-4.7); Potassium 3.6 mmol/L (3.5-5.1); Sodium 137 mmol/L (136-145)
[2021-09-22] MEDS ORDERED: ceFAZolin 2 GM/Dextrose 50 ML 2 GM in Premix Bag 1 BAG IVPB SCH (07:30)
[2021-09-22] MEDS ORDERED: CEFAZOLIN 2 GM, Admixture Fee 1 EACH in Sodium Chloride 0.9% 100 ML IVPB SCH (07:45)
[2021-09-22] MEDS: Carvedilol 25 MG TAB PO SCH ×2 (08:23→16:27)
[2021-09-22] MEDS: Folic Acid 1 MG TAB PO SCH (08:27)
[2021-09-22] MEDS: Ferrous Sulfate 325 MG TAB PO SCH ×2 (08:27→16:27)
[2021-09-22] MEDS: Gabapentin 100 MG CAP PO SCH ×2 (08:27→21:18)
[2021-09-22] MEDS: Senokot S 8.6-50 MG TAB PO SCH ×2 (08:28→21:18)
[2021-09-22] MEDS: Polyethylene Glycol 3350 17 GM Packet PO SCH (08:28)
[2021-09-22 08:29] LABS: SARS-CoV-2 NAA Rapid Test Not Detected (NotDetected)
[2021-09-22] MEDS ORDERED: ceFAZolin (BATCH) 2 GM/100 ML BAG ONE (10:32)
[2021-09-22] MEDS ORDERED: Famotidine/PF 20 mg/2ml Vial ONE (10:38)
[2021-09-22] MEDS ORDERED: Fentanyl 250 MCG/5 ML VIAL ONE (10:45)
[2021-09-22] MEDS ORDERED: Rocuronium Bromide 10 MG/ML (10ML VIAL) ONE (10:48)
[2021-09-22] MEDS ORDERED: Ondansetron PF 4 MG/2 ML Vial ONE (10:48)
[2021-09-22] MEDS ORDERED: PHENYLEPHRINE-NS 100 MCG/ML 10 ML SYRINGE ONE (10:48)
[2021-09-22] MEDS ORDERED: Lidocaine 1% PF 5 ML VIAL ONE (10:48)
[2021-09-22] MEDS ORDERED: PROPOFOL 200 MG/20 ML VIAL ONE (10:48)
[2021-09-22] MEDS ORDERED: PACU-Morphine 4MG/ML VIAL SLOW IVP PRN (11:28)
[2021-09-22] MEDS ORDERED: Promethazine HCl 25 MG/ML VIAL IVPB PRN (11:28)
[2021-09-22] MEDS ORDERED: SUGAMMADEX SODIUM 200 MG/2 ML VIAL ONE (11:34)
[2021-09-22 15:29] LABS: Bacteria/HPF 4+ HPF (None Seen); Bilirubin Negative (Negative); Blood, Urine Negative (Negative); Clarity Turbid (Clear); Glucose, Urine (Dipstick) Normal (Negative); Ketone, Urine Negative (Negative); Leukocyte 500 Leu/uL (Negative); Nitrite Negative (Negative); Protein, Urine (Dipstick) 300 mg/dL (Neg-Trace); RBC/HPF 0-3 HPF (0-3); Specific Gravity, Urine 1.019 (1.002-1.036); Squamous Epithelial 0-3 HPF (0-3); Triple Phosphate Crystal Rare HPF (None Seen); Urobilinogen Normal mg/dL (Less than 2); WBC/HPF 21-50 HPF (0-3)
[2021-09-22 15:32] LABS: Urine Culture Reflex Yes Yes
[2021-09-22] MEDS: Ciprofloxacin 500 MG TAB PO SCH (21:18)
[2021-09-22] MEDS: CEFAZOLIN 2 GM, Admixture Fee 1 EACH in Sodium Chloride 0.9% 100 ML IVPB SCH (21:19)
[2021-09-22] MEDS: Famotidine/PF 20 mg/2ml Vial SLOW IVP SCH (21:19)
[2021-09-23] MEDS: CEFAZOLIN 2 GM, Admixture Fee 1 EACH in Sodium Chloride 0.9% 100 ML IVPB SCH (02:37)
[2021-09-23] MEDS: Acetaminophen 500 MG TAB PO SCH ×4 (03:21→20:40)
[2021-09-23 05:43] LABS: #Eosinphils 0.1 thou/uL (0.0-0.7); #Lymphocytes 1.8 thou/uL (1.20-3.40); #Monocytes 0.6 thou/uL (0.11-0.59); %Basophils 0.2 % (0.0-1.0); %Eosinophils 0.7 % (0.0-10.0); %Lymphocytes 21.1 % (21.0-51.0); %Monocytes 7.3 % (0.0-10.0); %Neutrophils 70.6 % (42.0-75.0); Hemoglobin 7.6 g/dL (12.0-16.0); Mean Corpuscular HGB CONC 33.5 g/dL (32.0-36.0); Mean Corpuscular Hemoglobin 31.8 pg (27.0-31.0); Mean Corpuscular Volume 94.8 fL (78.0-98.0); Mean Platelet Volume 8.7 fL (7.4-10.4); Platelet Count 109 thou/uL (130-400); RBC Distribution Width 14.2 % (11.5-14.5); Red Blood Cell (RBC) Count 2.39 mill/uL (4.20-5.40); White Blood Cell (WBC) Count 8.5 thou/uL (4.8-10.8)
[2021-09-23 05:45] LABS: Anion Gap 16 mmol/L (10-20); BUN (Urea Nitrogen) 51 mg/dL (9.8-20.1); Calc. Creatinine Clearance 21 mL/min (70-130); Calcium 8.2 mg/dL (7.8-10.44); Carbon Dioxide 26 mmol/L (23-31); Chloride 99 mmol/L (98-107); Glucose 117 mg/dL (83-110); Magnesium 2.1 mg/dL (1.6-2.6); Phosphorus 5.6 mg/dL (2.3-4.7); Potassium 3.6 mmol/L (3.5-5.1); Sodium 137 mmol/L (136-145)
[2021-09-23] MEDS: Carvedilol 25 MG TAB PO SCH ×2 (08:12→16:50)
[2021-09-23] MEDS: Ferrous Sulfate 325 MG TAB PO SCH ×2 (08:13→16:49)
[2021-09-23] MEDS: Folic Acid 1 MG TAB PO SCH (08:13)
[2021-09-23] MEDS: Senokot S 8.6-50 MG TAB PO SCH ×2 (08:13→20:48)
[2021-09-23] MEDS: Polyethylene Glycol 3350 17 GM Packet PO SCH (08:14)
[2021-09-23] MEDS: Heparin 5,000 UNITS/ML VIAL SC SCH ×3 (08:14→20:48)
[2021-09-23] MEDS: Gabapentin 100 MG CAP PO SCH ×2 (08:14→20:41)
[2021-09-23] MEDS: Sevelamer Carbonate 800 MG TAB PO SCH ×2 (11:41→16:49)
[2021-09-23] MEDS ORDERED: EPOETIN ALFA-EPBX (ESRD) 4,000 UNIT/ML VIAL SC SCH (12:00)
[2021-09-23] MEDS: Ciprofloxacin 500 MG TAB PO SCH (20:40)
[2021-09-23] MEDS: Famotidine/PF 20 mg/2ml Vial SLOW IVP SCH (20:40)
[2021-09-24] MEDS: Acetaminophen 500 MG TAB PO SCH ×4 (03:37→22:03)
[2021-09-24 05:41] LABS: #Eosinphils 0.1 thou/uL (0.0-0.7); #Lymphocytes 1.7 thou/uL (1.20-3.40); #Monocytes 0.6 thou/uL (0.11-0.59); #Neutrophils 4.4 thou/uL (1.40-6.50); %Basophils 0.2 % (0.0-1.0); %Eosinophils 1.7 % (0.0-10.0); %Lymphocytes 25.2 % (21.0-51.0); %Monocytes 8.2 % (0.0-10.0); %Neutrophils 64.7 % (42.0-75.0); Hemoglobin 6.7 g/dL (12.0-16.0); Mean Corpuscular HGB CONC 32.7 g/dL (32.0-36.0); Mean Corpuscular Hemoglobin 31.3 pg (27.0-31.0); Mean Corpuscular Volume 95.7 fL (78.0-98.0); Mean Platelet Volume 8.8 fL (7.4-10.4); Platelet Count 103 thou/uL (130-400); RBC Distribution Width 14.2 % (11.5-14.5); Red Blood Cell (RBC) Count 2.14 mill/uL (4.20-5.40); White Blood Cell (WBC) Count 6.9 thou/uL (4.8-10.8)
[2021-09-24 05:55] LABS: Anion Gap 16 mmol/L (10-20); BUN (Urea Nitrogen) 57 mg/dL (9.8-20.1); Calc. Creatinine Clearance 24 mL/min (70-130); Calcium 8.2 mg/dL (7.8-10.44); Carbon Dioxide 25 mmol/L (23-31); Chloride 98 mmol/L (98-107); Glucose 114 mg/dL (83-110); Potassium 3.7 mmol/L (3.5-5.1); Sodium 135 mmol/L (136-145)
[2021-09-24] MEDS: Polyethylene Glycol 3350 17 GM Packet PO SCH (10:06)
[2021-09-24] MEDS: Senokot S 8.6-50 MG TAB PO SCH ×2 (10:06→22:05)
[2021-09-24] MEDS: Gabapentin 100 MG CAP PO SCH ×2 (10:07→22:03)
[2021-09-24] MEDS: Folic Acid 1 MG TAB PO SCH (10:07)
[2021-09-24] MEDS: Sevelamer Carbonate 800 MG TAB PO SCH ×3 (10:12→16:48)
[2021-09-24] MEDS: Heparin 5,000 UNITS/ML VIAL SC SCH ×3 (10:13→22:05)
[2021-09-24] MEDS: Carvedilol 25 MG TAB PO SCH ×2 (10:14→16:48)
[2021-09-24] MEDS: Ferrous Sulfate 325 MG TAB PO SCH ×2 (10:15→16:48)
[2021-09-24] MEDS: Ciprofloxacin 500 MG TAB PO SCH (22:03)
[2021-09-24] MEDS: Famotidine/PF 20 mg/2ml Vial SLOW IVP SCH (22:04)
[2021-09-25] MEDS: Acetaminophen 500 MG TAB PO SCH ×4 (04:59→20:25)
[2021-09-25 06:27] LABS: Chloride 99 mmol/L (98-107); Potassium 3.9 mmol/L (3.5-5.1); Sodium 135 mmol/L (136-145)
[2021-09-25 06:37] LABS: #Eosinphils 0.1 thou/uL (0.0-0.7); #Monocytes 0.5 thou/uL (0.11-0.59); #Neutrophils 4.3 thou/uL (1.40-6.50); %Basophils 0.2 % (0.0-1.0); %Eosinophils 2.1 % (0.0-10.0); %Lymphocytes 29.1 % (21.0-51.0); %Neutrophils 61.5 % (42.0-75.0); Anion Gap 14 mmol/L (10-20); BUN (Urea Nitrogen) 58 mg/dL (9.8-20.1); Calc. Creatinine Clearance 26 mL/min (70-130); Calcium 8.8 mg/dL (7.8-10.44); Carbon Dioxide 27 mmol/L (23-31); Glucose 104 mg/dL (83-110); Hemoglobin 7.5 g/dL (12.0-16.0); Mean Corpuscular HGB CONC 33.3 g/dL (32.0-36.0); Mean Corpuscular Hemoglobin 30.9 pg (27.0-31.0); Mean Corpuscular Volume 92.8 fL (78.0-98.0); Mean Platelet Volume 8.5 fL (7.4-10.4); Phosphorus 4.1 mg/dL (2.3-4.7); Platelet Count 125 thou/uL (130-400); RBC Distribution Width 14.3 % (11.5-14.5); Red Blood Cell (RBC) Count 2.44 mill/uL (4.20-5.40); White Blood Cell (WBC) Count 6.9 thou/uL (4.8-10.8)
[2021-09-25] MEDS: Polyethylene Glycol 3350 17 GM Packet PO SCH (08:40)
[2021-09-25] MEDS: Senokot S 8.6-50 MG TAB PO SCH ×2 (08:40→20:25)
[2021-09-25] MEDS: Ferrous Sulfate 325 MG TAB PO SCH ×2 (08:41→16:09)
[2021-09-25] MEDS: Carvedilol 25 MG TAB PO SCH ×2 (08:41→16:09)
[2021-09-25] MEDS: Folic Acid 1 MG TAB PO SCH (08:41)
[2021-09-25] MEDS: Heparin 5,000 UNITS/ML VIAL SC SCH ×3 (08:41→20:26)
[2021-09-25] MEDS: Sevelamer Carbonate 800 MG TAB PO SCH ×3 (08:41→16:09)
[2021-09-25] MEDS: Gabapentin 100 MG CAP PO SCH ×2 (08:42→20:24)
[2021-09-25] MEDS: traMADol HCl 50 MG TAB PO PRN (08:45)
[2021-09-25] MEDS ORDERED: EPOETIN ALFA-EPBX (ESRD) 3,000 UNIT/ML VIAL SC SCH (09:00)
[2021-09-25] MEDS: Famotidine/PF 20 mg/2ml Vial SLOW IVP SCH (20:25)
[2021-09-26] MEDS: Acetaminophen 500 MG TAB PO SCH ×4 (05:30→20:20)
[2021-09-26 05:59] LABS: #Eosinphils 0.2 thou/uL (0.0-0.7); #Lymphocytes 2.3 thou/uL (1.20-3.40); #Monocytes 0.5 thou/uL (0.11-0.59); #Neutrophils 4.2 thou/uL (1.40-6.50); %Basophils 0.2 % (0.0-1.0); %Eosinophils 2.6 % (0.0-10.0); %Lymphocytes 32.2 % (21.0-51.0); %Monocytes 6.6 % (0.0-10.0); %Neutrophils 58.4 % (42.0-75.0); Hemoglobin 7.8 g/dL (12.0-16.0); Mean Corpuscular HGB CONC 33.4 g/dL (32.0-36.0); Mean Corpuscular Hemoglobin 31.2 pg (27.0-31.0); Mean Corpuscular Volume 93.4 fL (78.0-98.0); Mean Platelet Volume 8.5 fL (7.4-10.4); Platelet Count 163 thou/uL (130-400); RBC Distribution Width 14.3 % (11.5-14.5); White Blood Cell (WBC) Count 7.2 thou/uL (4.8-10.8)
[2021-09-26 06:09] LABS: Phosphorus 3.8 mg/dL (2.3-4.7)
[2021-09-26 06:14] LABS: Anion Gap 12 mmol/L (10-20); BUN (Urea Nitrogen) 54 mg/dL (9.8-20.1); Calc. Creatinine Clearance 27 mL/min (70-130); Carbon Dioxide 27 mmol/L (23-31); Chloride 102 mmol/L (98-107); Glucose 95 mg/dL (83-110); Sodium 137 mmol/L (136-145)
[2021-09-26] MEDS: Amlodipine 10 MG TAB PO SCH (08:22)
[2021-09-26] MEDS: Carvedilol 25 MG TAB PO SCH ×2 (08:22→17:39)
[2021-09-26] MEDS: Senokot S 8.6-50 MG TAB PO SCH ×2 (08:22→20:20)
[2021-09-26] MEDS: Ferrous Sulfate 325 MG TAB PO SCH ×2 (08:22→17:39)
[2021-09-26] MEDS: Polyethylene Glycol 3350 17 GM Packet PO SCH (08:22)
[2021-09-26] MEDS: Folic Acid 1 MG TAB PO SCH (08:22)
[2021-09-26] MEDS: Heparin 5,000 UNITS/ML VIAL SC SCH (08:23)
[2021-09-26] MEDS: Sevelamer Carbonate 800 MG TAB PO SCH ×3 (08:23→17:39)
[2021-09-26] MEDS: Gabapentin 100 MG CAP PO SCH ×2 (08:23→20:19)
[2021-09-26] MEDS ORDERED: Heparin 5,000 UNITS/ML VIAL SC SCH (09:00)
[2021-09-26] MEDS: traMADol HCl 50 MG TAB PO PRN (09:27)
[2021-09-27 05:05] LABS: #Eosinphils 0.1 thou/uL (0.0-0.7); #Lymphocytes 2.3 thou/uL (1.20-3.40); #Monocytes 0.4 thou/uL (0.11-0.59); #Neutrophils 3.9 thou/uL (1.40-6.50); %Basophils 0.5 % (0.0-1.0); %Eosinophils 2.2 % (0.0-10.0); %Lymphocytes 34.2 % (21.0-51.0); %Neutrophils 57.2 % (42.0-75.0); Hemoglobin 7.9 g/dL (12.0-16.0); Mean Corpuscular HGB CONC 33.9 g/dL (32.0-36.0); Mean Corpuscular Hemoglobin 31.8 pg (27.0-31.0); Mean Corpuscular Volume 93.7 fL (78.0-98.0); Mean Platelet Volume 8.1 fL (7.4-10.4); Platelet Count 183 thou/uL (130-400); RBC Distribution Width 14.2 % (11.5-14.5); White Blood Cell (WBC) Count 6.9 thou/uL (4.8-10.8)
[2021-09-27 05:21] LABS: Anion Gap 16 mmol/L (10-20); BUN (Urea Nitrogen) 51 mg/dL (9.8-20.1); Calc. Creatinine Clearance 30 mL/min (70-130); Calcium 9.2 mg/dL (7.8-10.44); Carbon Dioxide 23 mmol/L (23-31); Chloride 101 mmol/L (98-107); Glucose 94 mg/dL (83-110); Sodium 136 mmol/L (136-145)
[2021-09-27] MEDS: Acetaminophen 500 MG TAB PO SCH ×4 (05:25→20:10)
[2021-09-27] MEDS: Amlodipine 10 MG TAB PO SCH (08:28)
[2021-09-27] MEDS: Ferrous Sulfate 325 MG TAB PO SCH ×2 (08:28→18:08)
[2021-09-27] MEDS: Carvedilol 25 MG TAB PO SCH ×2 (08:28→18:08)
[2021-09-27] MEDS: Sevelamer Carbonate 800 MG TAB PO SCH ×3 (08:28→18:08)
[2021-09-27] MEDS: Clopidogrel Bisulfate 75 MG TAB PO SCH (08:29)
[2021-09-27] MEDS: Folic Acid 1 MG TAB PO SCH (08:29)
[2021-09-27] MEDS: Polyethylene Glycol 3350 17 GM Packet PO SCH (08:29)
[2021-09-27] MEDS: Gabapentin 100 MG CAP PO SCH ×2 (08:29→20:10)
[2021-09-27] MEDS: Senokot S 8.6-50 MG TAB PO SCH ×2 (08:29→20:12)
[2021-09-27] MEDS: traMADol HCl 50 MG TAB PO PRN (18:11)
[2021-09-28] MEDS: Acetaminophen 500 MG TAB PO SCH ×3 (05:14→17:05)
[2021-09-28 06:14] LABS: #Eosinphils 0.2 thou/uL (0.0-0.7); #Lymphocytes 2.3 thou/uL (1.20-3.40); #Monocytes 0.5 thou/uL (0.11-0.59); #Neutrophils 3.3 thou/uL (1.40-6.50); %Basophils 0.3 % (0.0-1.0); %Eosinophils 2.7 % (0.0-10.0); %Lymphocytes 36.6 % (21.0-51.0); %Monocytes 7.4 % (0.0-10.0); Hemoglobin 8.2 g/dL (12.0-16.0); Mean Corpuscular HGB CONC 33.2 g/dL (32.0-36.0); Mean Corpuscular Hemoglobin 31.1 pg (27.0-31.0); Mean Corpuscular Volume 93.7 fL (78.0-98.0); Mean Platelet Volume 8.1 fL (7.4-10.4); Platelet Count 209 thou/uL (130-400); RBC Distribution Width 14.4 % (11.5-14.5); Red Blood Cell (RBC) Count 2.65 mill/uL (4.20-5.40); White Blood Cell (WBC) Count 6.1 thou/uL (4.8-10.8)
[2021-09-28 06:33] LABS: Anion Gap 16 mmol/L (10-20); BUN (Urea Nitrogen) 51 mg/dL (9.8-20.1); Calc. Creatinine Clearance 36 mL/min (70-130); Calcium 9.2 mg/dL (7.8-10.44); Carbon Dioxide 22 mmol/L (23-31); Chloride 103 mmol/L (98-107); Glucose 104 mg/dL (83-110); Potassium 3.8 mmol/L (3.5-5.1); Sodium 137 mmol/L (136-145)
[2021-09-28] MEDS: Clopidogrel Bisulfate 75 MG TAB PO SCH (10:06)
[2021-09-28] MEDS: Gabapentin 100 MG CAP PO SCH (10:07)
[2021-09-28] MEDS: Ferrous Sulfate 325 MG TAB PO SCH ×2 (10:07→17:52)
[2021-09-28] MEDS: Folic Acid 1 MG TAB PO SCH (10:07)
[2021-09-28] MEDS: Carvedilol 25 MG TAB PO SCH ×2 (10:07→17:52)
[2021-09-28] MEDS: Amlodipine 10 MG TAB PO SCH (10:07)
[2021-09-28] MEDS: traMADol HCl 50 MG TAB PO PRN (10:08)
[2021-09-28] MEDS: Senokot S 8.6-50 MG TAB PO SCH (10:08)
[2021-09-28] MEDS: Polyethylene Glycol 3350 17 GM Packet PO SCH (10:10)
[2021-09-28] MEDS: Sevelamer Carbonate 800 MG TAB PO SCH ×3 (10:11→17:53)
[2021-09-28] MEDS ORDERED: Lidocaine 1%/Epinephrine 1:100K 10 ML VIAL FS SCH (11:15)
[2021-09-28 19:19] VITALS: BP 146/65; TEMP 98.3
[2021-10-02] MEDS ORDERED: EPOETIN ALFA-EPBX (ESRD) 10,000 UNIT/ML VIAL SC SCH (08:40)
== END 2021-09-28 19:35 | DRG 480 ==
LOC: ERS 17:18 → SURG A 19:45
PROVIDERS: ADMIT Surgery; ATTEND Surgery
PROC: 0QH736Z Insertion of Intramedullary Internal Fixation Device into Left Upper Femur, Percutaneous Approach (ICD-10-PCS; principal; 2021-09-22)
PROC: 30233N1 Transfusion of Nonautologous Red Blood Cells into Peripheral Vein, Percutaneous Approach (ICD-10-PCS; 2021-09-24)
DX: S72.142A Displaced intertrochanteric fracture of left femur, initial encounter for closed fracture (principal); N18.6 End stage renal disease; N17.0 Acute kidney failure with tubular necrosis; I50.32 Chronic diastolic (congestive) heart failure; I13.0 Hypertensive heart and chronic kidney disease with heart failure and stage 1 through stage 4 chronic kidney disease, or unspecified chronic kidney disease; E87.1 Hypo-osmolality and hyponatremia; N39.0 Urinary tract infection, site not specified; D62 Acute posthemorrhagic anemia; W18.30XA Fall on same level, unspecified, initial encounter; Z20.822 Contact with and (suspected) exposure to COVID-19; E03.9 Hypothyroidism, unspecified; E78.5 Hyperlipidemia, unspecified; F41.9 Anxiety disorder, unspecified; F32.A Depression, unspecified; E87.6 Hypokalemia; D63.1 Anemia in chronic kidney disease; I25.10 Atherosclerotic heart disease of native coronary artery without angina pectoris; E83.39 Other disorders of phosphorus metabolism; Z99.2 Dependence on renal dialysis; Z90.49 Acquired absence of other specified parts of digestive tract; Z98.890 Other specified postprocedural states; Z79.890 Hormone replacement therapy; Z79.82 Long term (current) use of aspirin; Z79.899 Other long term (current) drug therapy; Z79.01 Long term (current) use of anticoagulants
CPT/HCPCS: 36415; 36430; 71045; 72170; 76000; 80048; 80053; 81001; 83605; 83735; 83880; 84100; 85025; 85610; 85730; 86850; 86900; 86901; 87077; 87086; 87186; 93005; 94760; 96374; C1713; J0690; J1644; J2405; J2704; J3010; J3475; J3490; J7030; J7050; P9016; Q5105; S0028; U0002

== ENCOUNTER 2022-06-13 14:07 | Inpatient (IN) | payer MEDICARE, OTHER ==
[2022-06-13 15:03] LABS: #Eosinphils 0.1 thou/uL (0.0-0.7); #Lymphocytes 1.6 thou/uL (1.20-3.40); #Monocytes 0.9 thou/uL (0.11-0.59); %Eosinophils 0.6 % (0.0-10.0); %Lymphocytes 13.6 % (21.0-51.0); %Monocytes 7.4 % (0.0-10.0); %Neutrophils 78.4 % (42.0-75.0); Hemoglobin 10.8 g/dL (12.0-16.0); Mean Corpuscular HGB CONC 33.5 g/dL (32.0-36.0); Mean Corpuscular Hemoglobin 32.4 pg (27.0-31.0); Mean Corpuscular Volume 96.8 fl (78.0-98.0); Mean Platelet Volume 9.6 fL (7.4-10.4); Platelet Count 196 10x3/uL (130-400); Red Blood Cell (RBC) Count 3.35 mill/uL (4.20-5.40); White Blood Cell (WBC) Count 11.4 10x3/uL (4.8-10.8)
[2022-06-13 16:12] LABS: ALT (SGPT) 11 U/L (8-55); AST (SGOT) 17 U/L (5-34); Albumin 4.1 g/dL (3.4-4.8); Alkaline Phosphatase 56 U/L (40-110); Anion Gap 17 mmol/L (10-20); BUN (Urea Nitrogen) 70 mg/dL (9.8-20.1); Bilirubin, Total 1.1 mg/dL (0.2-1.2); Calc. Creatinine Clearance 0 mL/min (70-130); Calcium 9.2 mg/dL (7.8-10.44); Carbon Dioxide 21 mmol/L (23-31); Chloride 94 mmol/L (98-107); Estimated GFR 8; Globulin 3.1 g/dL (2.4-3.5); Glucose 128 mg/dL (83-110); Potassium 5.6 mmol/L (3.5-5.1); Protein, Total 7.2 g/dL (5.8-8.1); Sodium 126 mmol/L (136-145)
[2022-06-13] MEDS ORDERED: Acetaminophen 325 MG TAB PO PRN (16:58)
[2022-06-13] MEDS ORDERED: Ondansetron ODT 4 MG TAB PO PRN (16:58)
[2022-06-13] MEDS ORDERED: Benzonatate 100 MG CAP PO PRN (17:02)
[2022-06-13] MEDS ORDERED: Albuterol Sulfate 2.5 mg/3 ml Neb NEB PRN (17:23)
[2022-06-13] MEDS ORDERED: cefTRIAXone\\ROCEPHIN 1 GM in Sodium Chloride 0.9% 100 ML IVPB SCH (17:45)
[2022-06-13] MEDS ORDERED: Azithromycin 500 MG in Sodium Chloride 0.9% 250 ML 250 ML IVPB SCH (17:45)
[2022-06-13] MEDS ORDERED: Albumin 25% 25 GM/100 ML BOT IVPB SCH (18:45)
[2022-06-13] MEDS: Carvedilol 25 MG TAB PO SCH (20:39)
[2022-06-13] MEDS: hydrALAZINE 25 MG TAB PO SCH (20:41)
[2022-06-13] MEDS ORDERED: Furosemide 40 MG/4 ML VIAL SLOW IVP SCH (21:00)
[2022-06-13] MEDS: Albumin 25% 25 GM/100 ML BOT IVPB SCH (21:41)
[2022-06-14] MEDS: Albumin 25% 25 GM/100 ML BOT IVPB SCH ×5 (04:01→22:35)
[2022-06-14] MEDS ORDERED: Furosemide 80 MG TAB PO SCH (09:00)
[2022-06-14] MEDS ORDERED: Enoxaparin Sodium 30 MG/0.3 ML SYRINGE SC SCH (09:00)
[2022-06-14 09:37] LABS: #Eosinphils 0.1 thou/uL (0.0-0.7); #Lymphocytes 1.4 thou/uL (1.20-3.40); #Monocytes 0.8 thou/uL (0.11-0.59); #Neutrophils 8.8 thou/uL (1.40-6.50); %Basophils 0.1 % (0.0-1.0); %Eosinophils 0.7 % (0.0-10.0); %Lymphocytes 12.5 % (21.0-51.0); %Neutrophils 79.6 % (42.0-75.0); Hemoglobin 10.4 g/dL (12.0-16.0); Mean Corpuscular HGB CONC 34.3 g/dL (32.0-36.0); Mean Corpuscular Hemoglobin 32.9 pg (27.0-31.0); Mean Platelet Volume 9.3 fL (7.4-10.4); Platelet Count 188 10x3/uL (130-400); RBC Distribution Width 13.3 % (11.5-14.5); Red Blood Cell (RBC) Count 3.16 mill/uL (4.20-5.40)
[2022-06-14 09:52] LABS: Phosphorus 5.4 mg/dL (2.3-4.7)
[2022-06-14 10:02] LABS: ALT (SGPT) 9 U/L (8-55); AST (SGOT) 14 U/L (5-34); Albumin 4.5 g/dL (3.4-4.8); Alkaline Phosphatase 52 U/L (40-110); Anion Gap 18 mmol/L (10-20); BUN (Urea Nitrogen) 75 mg/dL (9.8-20.1); Bilirubin, Total 1.2 mg/dL (0.2-1.2); Calc. Creatinine Clearance 12 mL/min (70-130); Calcium 9.2 mg/dL (7.8-10.44); Carbon Dioxide 21 mmol/L (23-31); Chloride 94 mmol/L (98-107); Estimated GFR 7; Globulin 2.8 g/dL (2.4-3.5); Glucose 112 mg/dL (83-110); Magnesium 2.2 mg/dL (1.6-2.6); Potassium 5.2 mmol/L (3.5-5.1); Protein, Total 7.3 g/dL (5.8-8.1); Sodium 128 mmol/L (136-145)
[2022-06-14] MEDS: cefTRIAXone\\ROCEPHIN 1 GM in Sodium Chloride 0.9% 100 ML IVPB SCH (10:30)
[2022-06-14] MEDS: hydrALAZINE 25 MG TAB PO SCH ×3 (10:31→22:20)
[2022-06-14] MEDS: Carvedilol 25 MG TAB PO SCH ×2 (10:31→18:11)
[2022-06-14] MEDS: Calcitriol 0.25 MCG CAP PO SCH (10:31)
[2022-06-14] MEDS: Clopidogrel Bisulfate 75 MG TAB PO SCH (10:31)
[2022-06-14] MEDS: Folic Acid 1 MG TAB PO SCH (10:31)
[2022-06-14] MEDS: Oxybutynin 5 MG TAB PO SCH (10:32)
[2022-06-14] MEDS: Aspirin 81 mg Enteric Coated Tablet PO SCH (10:32)
[2022-06-14] MEDS: NIFEdipine XL 60 MG TAB PO SCH (10:32)
[2022-06-14] MEDS: Heparin 5,000 UNITS/ML VIAL SC SCH ×3 (10:33→22:20)
[2022-06-14] MEDS: Azithromycin 500 MG in Sodium Chloride 0.9% 250 ML 250 ML IVPB SCH (15:08)
[2022-06-14] MEDS: Senokot S 8.6-50 MG TAB PO PRN (15:39)
[2022-06-15] MEDS: Ondansetron PF 4 MG/2 ML Vial IVP PRN (03:45)
[2022-06-15 06:44] LABS: Calcium 9.2 mg/dL (7.8-10.44); Chloride 93 mmol/L (98-107); Potassium 5.3 mmol/L (3.5-5.1); Sodium 129 mmol/L (136-145)
[2022-06-15 06:45] LABS: Glucose 113 mg/dL (83-110)
[2022-06-15 06:46] LABS: Anion Gap 19 mmol/L (10-20); Carbon Dioxide 22 mmol/L (23-31)
[2022-06-15 06:48] LABS: Calc. Creatinine Clearance 12 mL/min (70-130); Estimated GFR 7
[2022-06-15 06:49] LABS: BUN (Urea Nitrogen) 84 mg/dL (9.8-20.1)
[2022-06-15 06:51] LABS: Band 4 % (5-11); Hemoglobin 9.8 g/dL (12.0-16.0); Lymphocytes 13 % (21-51); MDiff Complete? YES; Mean Corpuscular HGB CONC 32.9 g/dL (32.0-36.0); Mean Corpuscular Hemoglobin 32.2 pg (27.0-31.0); Mean Corpuscular Volume 97.9 fl (78.0-98.0); Mean Platelet Volume 10.5 fL (7.4-10.4); Monocytes 5 % (0-10); Neutrophil 78 % (42-75); Platelet Count 169 10x3/uL (130-400); Platelet Morphology Comment Appears Adequate; Polychromasia SLIGHT = 2-3 cells (100X) (0-2/hpf); RBC Distribution Width 13.1 % (11.5-14.5); Red Blood Cell (RBC) Count 3.05 mill/uL (4.20-5.40)
[2022-06-15] MEDS: Clopidogrel Bisulfate 75 MG TAB PO SCH (09:32)
[2022-06-15] MEDS: Folic Acid 1 MG TAB PO SCH (09:32)
[2022-06-15] MEDS: hydrALAZINE 25 MG TAB PO SCH ×3 (09:33→22:27)
[2022-06-15] MEDS: Aspirin 81 mg Enteric Coated Tablet PO SCH (09:33)
[2022-06-15] MEDS: NIFEdipine XL 60 MG TAB PO SCH (09:33)
[2022-06-15] MEDS: Oxybutynin 5 MG TAB PO SCH (09:34)
[2022-06-15] MEDS: Calcitriol 0.25 MCG CAP PO SCH (09:34)
[2022-06-15] MEDS: cefTRIAXone\\ROCEPHIN 1 GM in Sodium Chloride 0.9% 100 ML IVPB SCH (09:35)
[2022-06-15] MEDS: Heparin 5,000 UNITS/ML VIAL SC SCH ×3 (09:36→22:26)
[2022-06-15] MEDS: Carvedilol 25 MG TAB PO SCH ×2 (09:36→16:36)
[2022-06-15] MEDS: Senokot S 8.6-50 MG TAB PO PRN (09:43)
[2022-06-15] MEDS: Azithromycin 500 MG in Sodium Chloride 0.9% 250 ML 250 ML IVPB SCH (12:20)
[2022-06-16] MEDS ORDERED: methylPREDNISolone Sod Succ/PF 125 MG/2 ML VIAL IVP SCH (02:00)
[2022-06-16] MEDS ORDERED: Furosemide 20 MG/2 ML VIAL SLOW IVP SCH (04:00)
[2022-06-16 05:21] LABS: #Lymphocytes 0.6 thou/uL (1.20-3.40); #Monocytes 0.2 thou/uL (0.11-0.59); #Neutrophils 14.9 thou/uL (1.40-6.50); %Eosinophils 0.1 % (0.0-10.0); %Lymphocytes 3.8 % (21.0-51.0); %Monocytes 1.4 % (0.0-10.0); %Neutrophils 94.6 % (42.0-75.0); Hemoglobin 9.9 g/dL (12.0-16.0); Mean Corpuscular HGB CONC 32.5 g/dL (32.0-36.0); Mean Corpuscular Hemoglobin 31.7 pg (27.0-31.0); Mean Corpuscular Volume 97.5 fl (78.0-98.0); Mean Platelet Volume 10.1 fL (7.4-10.4); Platelet Count 203 10x3/uL (130-400); RBC Distribution Width 13.2 % (11.5-14.5); Red Blood Cell (RBC) Count 3.12 mill/uL (4.20-5.40); White Blood Cell (WBC) Count 15.8 10x3/uL (4.8-10.8)
[2022-06-16] MEDS ORDERED: Bisacodyl 10 MG SUPP PR SCH (05:45)
[2022-06-16 05:49] LABS: Anion Gap 20 mmol/L (10-20); BUN (Urea Nitrogen) 101 mg/dL (9.8-20.1); Calc. Creatinine Clearance 10 mL/min (70-130); Calcium 8.8 mg/dL (7.8-10.44); Carbon Dioxide 20 mmol/L (23-31); Chloride 91 mmol/L (98-107); Estimated GFR 6; Glucose 131 mg/dL (83-110); Sodium 125 mmol/L (136-145)
[2022-06-16 05:53] LABS: Potassium 6.4 mmol/L (3.5-5.1)
[2022-06-16] MEDS ORDERED: Dextrose 50% Abboject 50 ML SYRINGE SLOW IVP PRN (06:14)
[2022-06-16] MEDS ORDERED: Calcium Gluc 4.6 MEQ/10 ML (100 MG/ML) SLOW IVP SCH (06:30)
[2022-06-16] MEDS ORDERED: Insulin Regular 300 UNITS/3 ML VIAL IVP SCH (06:30)
[2022-06-16] MEDS: NIFEdipine XL 60 MG TAB PO SCH (08:07)
[2022-06-16] MEDS: Oxybutynin 5 MG TAB PO SCH (08:08)
[2022-06-16] MEDS: Clopidogrel Bisulfate 75 MG TAB PO SCH (08:09)
[2022-06-16] MEDS: Aspirin 81 mg Enteric Coated Tablet PO SCH (08:09)
[2022-06-16] MEDS: Calcitriol 0.25 MCG CAP PO SCH (08:09)
[2022-06-16] MEDS: Carvedilol 25 MG TAB PO SCH ×2 (08:09→18:24)
[2022-06-16] MEDS: hydrALAZINE 25 MG TAB PO SCH ×3 (08:10→21:53)
[2022-06-16] MEDS: Folic Acid 1 MG TAB PO SCH (08:11)
[2022-06-16] MEDS: Heparin 5,000 UNITS/ML VIAL SC SCH ×3 (08:11→21:52)
[2022-06-16] MEDS: cefTRIAXone\\ROCEPHIN 1 GM in Sodium Chloride 0.9% 100 ML IVPB SCH (08:14)
[2022-06-16] MEDS ORDERED: Heparin 10,000 UNITS/ 10 ML VIAL ONE (08:55)
[2022-06-16] MEDS: Azithromycin 500 MG in Sodium Chloride 0.9% 250 ML 250 ML IVPB SCH (09:14)
[2022-06-16 10:03] LABS: Potassium 6.3 mmol/L (3.5-5.1)
[2022-06-16 11:44] LABS: HBSAB Concentration Less than 8.00 mIU/mL; HBSAg Index 0.35 S/CO (0-0.99); Hep B Core Total Ab Non-Reactive (NonReactive); Hep B Core Total Index 0.11 S/CO (0-0.79); Hep B Surf AB Non-Reactive (NonReactive); Hep B Surf Ag Non-Reactive S/CO (NonReactive); Hep C IgG Ab Non-Reactive (NonReactive); Hep C Index 0.13 S/CO (0-0.79)
[2022-06-16 18:41] LABS: Potassium 5.1 mmol/L (3.5-5.1)
[2022-06-16] MEDS: Senokot S 8.6-50 MG TAB PO PRN (21:57)
[2022-06-16] MEDS: DRY MOUTH SPRAY PO SCH (21:58)
[2022-06-17] MEDS ORDERED: Famotidine 20 MG TAB PO SCH (01:15)
[2022-06-17 05:42] LABS: #Basophils 0.1 thou/uL (0.0-0.2); #Lymphocytes 0.6 thou/uL (1.20-3.40); #Monocytes 0.4 thou/uL (0.11-0.59); #Neutrophils 11.5 thou/uL (1.40-6.50); %Basophils 0.6 % (0.0-1.0); %Eosinophils 0.1 % (0.0-10.0); %Lymphocytes 5.1 % (21.0-51.0); %Monocytes 3.2 % (0.0-10.0); %Neutrophils 91.1 % (42.0-75.0); Mean Corpuscular HGB CONC 33.5 g/dL (32.0-36.0); Mean Corpuscular Hemoglobin 32.3 pg (27.0-31.0); Mean Corpuscular Volume 96.4 fl (78.0-98.0); Platelet Count 195 10x3/uL (130-400); RBC Distribution Width 13.1 % (11.5-14.5); Red Blood Cell (RBC) Count 2.79 mill/uL (4.20-5.40); White Blood Cell (WBC) Count 12.7 10x3/uL (4.8-10.8)
[2022-06-17 06:06] LABS: Anion Gap 19 mmol/L (10-20); BUN (Urea Nitrogen) 87 mg/dL (9.8-20.1); Calc. Creatinine Clearance 11 mL/min (70-130); Calcium 8.6 mg/dL (7.8-10.44); Carbon Dioxide 23 mmol/L (23-31); Chloride 94 mmol/L (98-107); Estimated GFR 7; Glucose 135 mg/dL (83-110); Potassium 5.1 mmol/L (3.5-5.1); Sodium 131 mmol/L (136-145)
[2022-06-17] MEDS ORDERED: Heparin 10,000 UNITS/ 10 ML VIAL ONE (08:54)
[2022-06-17] MEDS: cefTRIAXone\\ROCEPHIN 1 GM in Sodium Chloride 0.9% 100 ML IVPB SCH (09:06)
[2022-06-17] MEDS: DRY MOUTH SPRAY PO SCH ×4 (09:06→20:51)
[2022-06-17] MEDS: Oxybutynin 5 MG TAB PO SCH (09:08)
[2022-06-17] MEDS: Folic Acid 1 MG TAB PO SCH (09:08)
[2022-06-17] MEDS: Calcitriol 0.25 MCG CAP PO SCH (09:08)
[2022-06-17] MEDS: Aspirin 81 mg Enteric Coated Tablet PO SCH (09:08)
[2022-06-17] MEDS: Clopidogrel Bisulfate 75 MG TAB PO SCH (09:09)
[2022-06-17] MEDS: hydrALAZINE 25 MG TAB PO SCH (09:18)
[2022-06-17] MEDS: NIFEdipine XL 60 MG TAB PO SCH (09:18)
[2022-06-17] MEDS: Carvedilol 25 MG TAB PO SCH ×2 (09:19→20:52)
[2022-06-17] MEDS ORDERED: Mineral Oil ENEMA PR SCH (09:25)
[2022-06-17] MEDS: Heparin 5,000 UNITS/ML VIAL SC SCH ×3 (11:55→20:52)
[2022-06-17 13:21] LABS: Iron 63 ug/dL (50-170); Iron Binding Capacity, Total 243 mcg/dL (265-497)
[2022-06-17] MEDS: Azithromycin 500 MG in Sodium Chloride 0.9% 250 ML 250 ML IVPB SCH (17:38)
[2022-06-17] MEDS: Famotidine 20 MG TAB PO SCH (20:52)
[2022-06-18 05:09] LABS: #Lymphocytes 0.8 thou/uL (1.20-3.40); #Monocytes 1.2 thou/uL (0.11-0.59); #Neutrophils 13.5 thou/uL (1.40-6.50); %Basophils 0.1 % (0.0-1.0); %Lymphocytes 5.2 % (21.0-51.0); %Monocytes 7.7 % (0.0-10.0); %Neutrophils 86.9 % (42.0-75.0); Hemoglobin 9.6 g/dL (12.0-16.0); Mean Corpuscular Hemoglobin 32.8 pg (27.0-31.0); Mean Corpuscular Volume 96.4 fl (78.0-98.0); Mean Platelet Volume 9.9 fL (7.4-10.4); Platelet Count 209 10x3/uL (130-400); Red Blood Cell (RBC) Count 2.93 mill/uL (4.20-5.40); White Blood Cell (WBC) Count 15.5 10x3/uL (4.8-10.8)
[2022-06-18 05:26] LABS: Anion Gap 19 mmol/L (10-20); BUN (Urea Nitrogen) 68 mg/dL (9.8-20.1); Calc. Creatinine Clearance 17 mL/min (70-130); Calcium 8.4 mg/dL (7.8-10.44); Carbon Dioxide 22 mmol/L (23-31); Chloride 98 mmol/L (98-107); Estimated GFR 11; Glucose 130 mg/dL (83-110); Potassium 3.9 mmol/L (3.5-5.1); Sodium 135 mmol/L (136-145)
[2022-06-18] MEDS ORDERED: Bisacodyl 5 MG TAB PO PRN (08:06)
[2022-06-18] MEDS ORDERED: Heparin 10,000 UNITS/ 10 ML VIAL ONE (08:33)
[2022-06-18] MEDS: Heparin 5,000 UNITS/ML VIAL SC SCH ×3 (10:05→21:20)
[2022-06-18] MEDS: Folic Acid 1 MG TAB PO SCH (15:03)
[2022-06-18] MEDS: Carvedilol 25 MG TAB PO SCH ×2 (15:04→21:12)
[2022-06-18] MEDS: Oxybutynin 5 MG TAB PO SCH (15:04)
[2022-06-18] MEDS: Calcitriol 0.25 MCG CAP PO SCH (15:04)
[2022-06-18] MEDS: EPOETIN ALFA-EPBX (ESRD) 10,000 UNIT/ML VIAL SC SCH (15:05)
[2022-06-18] MEDS: Clopidogrel Bisulfate 75 MG TAB PO SCH (15:05)
[2022-06-18] MEDS: Aspirin 81 mg Enteric Coated Tablet PO SCH (15:05)
[2022-06-18] MEDS: DRY MOUTH SPRAY PO SCH ×4 (15:06→21:12)
[2022-06-18] MEDS: Azithromycin 500 MG in Sodium Chloride 0.9% 250 ML 250 ML IVPB SCH (15:07)
[2022-06-18] MEDS: cefTRIAXone\\ROCEPHIN 1 GM in Sodium Chloride 0.9% 100 ML IVPB SCH (16:28)
[2022-06-18] MEDS: Famotidine 20 MG TAB PO SCH (21:12)
[2022-06-18] MEDS ORDERED: Pantoprazole 40 MG VIAL IVP SCH (21:45)
[2022-06-18 22:40] LABS: Hemoglobin 9.7 g/dL (12.0-16.0)
[2022-06-19 05:39] LABS: #Lymphocytes 1.2 thou/uL (1.20-3.40); #Monocytes 1.1 thou/uL (0.11-0.59); #Neutrophils 10.6 thou/uL (1.40-6.50); %Eosinophils 0.1 % (0.0-10.0); %Lymphocytes 9.5 % (21.0-51.0); %Monocytes 8.7 % (0.0-10.0); %Neutrophils 81.7 % (42.0-75.0); Hemoglobin 9.3 g/dL (12.0-16.0); Mean Corpuscular Hemoglobin 32.1 pg (27.0-31.0); Mean Corpuscular Volume 97.2 fl (78.0-98.0); Mean Platelet Volume 9.9 fL (7.4-10.4); Platelet Count 179 10x3/uL (130-400); RBC Distribution Width 13.1 % (11.5-14.5); Red Blood Cell (RBC) Count 2.89 mill/uL (4.20-5.40)
[2022-06-19 05:57] LABS: Anion Gap 14 mmol/L (10-20); BUN (Urea Nitrogen) 42 mg/dL (9.8-20.1); Calc. Creatinine Clearance 25 mL/min (70-130); Carbon Dioxide 28 mmol/L (23-31); Chloride 95 mmol/L (98-107); Estimated GFR 18; Glucose 133 mg/dL (83-110); Potassium 3.4 mmol/L (3.5-5.1); Sodium 134 mmol/L (136-145)
[2022-06-19] MEDS: Aspirin 81 mg Enteric Coated Tablet PO SCH (09:05)
[2022-06-19] MEDS: Folic Acid 1 MG TAB PO SCH (09:05)
[2022-06-19] MEDS: Oxybutynin 5 MG TAB PO SCH (09:05)
[2022-06-19] MEDS: Clopidogrel Bisulfate 75 MG TAB PO SCH (09:05)
[2022-06-19] MEDS: Carvedilol 25 MG TAB PO SCH ×2 (09:05→20:39)
[2022-06-19] MEDS: Calcitriol 0.25 MCG CAP PO SCH (09:05)
[2022-06-19] MEDS: cefTRIAXone\\ROCEPHIN 1 GM in Sodium Chloride 0.9% 100 ML IVPB SCH (09:05)
[2022-06-19] MEDS: Pantoprazole 40 MG VIAL IVP SCH ×2 (09:06→20:39)
[2022-06-19] MEDS: DRY MOUTH SPRAY PO SCH ×4 (09:08→20:39)
[2022-06-19] MEDS: Heparin 5,000 UNITS/ML VIAL SC SCH ×3 (09:09→20:39)
[2022-06-19] MEDS: Azithromycin 500 MG in Sodium Chloride 0.9% 250 ML 250 ML IVPB SCH (09:23)
[2022-06-19] MEDS ORDERED: Potassium Chloride 20 MEQ TAB PO SCH (09:45)
[2022-06-20 05:53] LABS: Anion Gap 17 mmol/L (10-20); BUN (Urea Nitrogen) 77 mg/dL (9.8-20.1); Calc. Creatinine Clearance 18 mL/min (70-130); Carbon Dioxide 24 mmol/L (23-31); Chloride 97 mmol/L (98-107); Estimated GFR 12; Glucose 108 mg/dL (83-110); Potassium 3.5 mmol/L (3.5-5.1); Sodium 134 mmol/L (136-145)
[2022-06-20 05:57] LABS: Hemoglobin 8.4 g/dL (12.0-16.0); Mean Corpuscular HGB CONC 33.1 g/dL (32.0-36.0); Mean Corpuscular Hemoglobin 32.4 pg (27.0-31.0); Mean Corpuscular Volume 97.8 fl (78.0-98.0); Mean Platelet Volume 9.9 fL (7.4-10.4); Platelet Count 160 10x3/uL (130-400); RBC Distribution Width 13.3 % (11.5-14.5); Red Blood Cell (RBC) Count 2.59 mill/uL (4.20-5.40); White Blood Cell (WBC) Count 12.9 10x3/uL (4.8-10.8)
[2022-06-20 06:12] LABS: Band 18 % (5-11); Lymphocytes 6 % (21-51); MDiff Complete? YES; Monocytes 9 % (0-10); Neutrophil 67 % (42-75)
[2022-06-20] MEDS: Clopidogrel Bisulfate 75 MG TAB PO SCH (08:35)
[2022-06-20] MEDS: Heparin 5,000 UNITS/ML VIAL SC SCH ×3 (08:35→20:46)
[2022-06-20] MEDS: Calcitriol 0.25 MCG CAP PO SCH (08:35)
[2022-06-20] MEDS: Aspirin 81 mg Enteric Coated Tablet PO SCH (08:35)
[2022-06-20] MEDS: Folic Acid 1 MG TAB PO SCH (08:35)
[2022-06-20] MEDS: Carvedilol 25 MG TAB PO SCH ×2 (08:35→20:46)
[2022-06-20] MEDS: DRY MOUTH SPRAY PO SCH ×4 (08:36→20:46)
[2022-06-20] MEDS: Pantoprazole 40 MG VIAL IVP SCH ×2 (08:36→20:46)
[2022-06-20] MEDS: Oxybutynin 5 MG TAB PO SCH (08:36)
[2022-06-20] MEDS ORDERED: Heparin 10,000 UNITS/ 10 ML VIAL ONE (13:55)
[2022-06-20] MEDS ORDERED: Ketamine 50 MG/ML (10ML VIAL) ONE (15:51)
[2022-06-20] MEDS ORDERED: PROPOFOL 200 MG/20 ML VIAL ONE (16:10)
[2022-06-21 06:20] LABS: Anion Gap 15 mmol/L (10-20); BUN (Urea Nitrogen) 36 mg/dL (9.8-20.1); Calc. Creatinine Clearance 25 mL/min (70-130); Calcium 8.4 mg/dL (7.8-10.44); Carbon Dioxide 27 mmol/L (23-31); Chloride 100 mmol/L (98-107); Estimated GFR 19; Glucose 91 mg/dL (83-110); Potassium 3.1 mmol/L (3.5-5.1); Sodium 139 mmol/L (136-145)
[2022-06-21 06:25] LABS: #Eosinphils 0.1 thou/uL (0.0-0.7); #Monocytes 1.1 thou/uL (0.11-0.59); #Neutrophils 8.8 thou/uL (1.40-6.50); %Eosinophils 0.5 % (0.0-10.0); %Lymphocytes 9.4 % (21.0-51.0); %Monocytes 10.3 % (0.0-10.0); %Neutrophils 79.7 % (42.0-75.0); Hemoglobin 8.3 g/dL (12.0-16.0); Mean Corpuscular HGB CONC 32.1 g/dL (32.0-36.0); Mean Corpuscular Hemoglobin 31.7 pg (27.0-31.0); Mean Platelet Volume 9.9 fL (7.4-10.4); Platelet Count 166 10x3/uL (130-400); RBC Distribution Width 13.4 % (11.5-14.5); Red Blood Cell (RBC) Count 2.62 mill/uL (4.20-5.40)
[2022-06-21] MEDS: Calcitriol 0.25 MCG CAP PO SCH (08:02)
[2022-06-21] MEDS: Aspirin 81 mg Enteric Coated Tablet PO SCH (08:02)
[2022-06-21] MEDS: Oxybutynin 5 MG TAB PO SCH (08:03)
[2022-06-21] MEDS: Carvedilol 25 MG TAB PO SCH ×2 (08:03→19:28)
[2022-06-21] MEDS: Folic Acid 1 MG TAB PO SCH (08:03)
[2022-06-21] MEDS: Clopidogrel Bisulfate 75 MG TAB PO SCH (08:03)
[2022-06-21] MEDS: Pantoprazole 40 MG VIAL IVP SCH ×2 (08:07→20:34)
[2022-06-21] MEDS: Heparin 5,000 UNITS/ML VIAL SC SCH ×3 (08:07→20:33)
[2022-06-21] MEDS: DRY MOUTH SPRAY PO SCH ×4 (08:07→20:34)
[2022-06-21] MEDS ORDERED: Bisacodyl 10 MG SUPP PR SCH (12:00)
[2022-06-21] MEDS: hydrALAZINE 25 MG TAB PO SCH ×2 (15:01→19:28)
[2022-06-21] MEDS: Potassium Chloride 20 MEQ in Premix Bag 1 BAG IVPB SCH ×3 (15:04→20:33)
[2022-06-21 15:47] LABS: Magnesium 1.9 mg/dL (1.6-2.6)
[2022-06-22 06:48] LABS: Anion Gap 23 mmol/L (10-20); BUN (Urea Nitrogen) 64 mg/dL (9.8-20.1); Calc. Creatinine Clearance 17 mL/min (70-130); Calcium 8.5 mg/dL (7.8-10.44); Carbon Dioxide 19 mmol/L (23-31); Chloride 100 mmol/L (98-107); Estimated GFR 12; Glucose 79 mg/dL (83-110); Potassium 3.8 mmol/L (3.5-5.1); Sodium 138 mmol/L (136-145)
[2022-06-22] MEDS: Calcitriol 0.25 MCG CAP PO SCH (08:24)
[2022-06-22] MEDS: Carvedilol 25 MG TAB PO SCH ×3 (08:24→21:06)
[2022-06-22] MEDS: Aspirin 81 mg Enteric Coated Tablet PO SCH (08:24)
[2022-06-22] MEDS: NIFEdipine XL 60 MG TAB PO SCH (08:25)
[2022-06-22] MEDS: Folic Acid 1 MG TAB PO SCH (08:25)
[2022-06-22] MEDS: hydrALAZINE 25 MG TAB PO SCH ×5 (08:25→21:06)
[2022-06-22] MEDS: Oxybutynin 5 MG TAB PO SCH (08:25)
[2022-06-22] MEDS: Clopidogrel Bisulfate 75 MG TAB PO SCH (08:25)
[2022-06-22] MEDS: Pantoprazole 40 MG VIAL IVP SCH ×2 (08:30→20:37)
[2022-06-22] MEDS: DRY MOUTH SPRAY PO SCH ×4 (08:30→21:06)
[2022-06-22] MEDS: Heparin 5,000 UNITS/ML VIAL SC SCH ×3 (08:30→20:38)
[2022-06-22] MEDS: Bisacodyl 10 MG SUPP PR SCH (08:30)
[2022-06-22 12:14] LABS: Band 4 % (5-11); Eosinophils 1 % (0-10); Hemoglobin 8.7 g/dL (12.0-16.0); Hypochromia SLIGHT = 6-15 cells (100X) (0-5/hpf); Lymphocytes 4 % (21-51); MDiff Complete? YES; Mean Corpuscular HGB CONC 33.8 g/dL (32.0-36.0); Mean Corpuscular Hemoglobin 33.4 pg (27.0-31.0); Mean Corpuscular Volume 98.9 fl (78.0-98.0); Mean Platelet Volume 9.6 fL (7.4-10.4); Monocytes 5 % (0-10); Neutrophil 86 % (42-75); Platelet Count 182 10x3/uL (130-400); Platelet Morphology Comment Appears Adequate; RBC Distribution Width 13.1 % (11.5-14.5); Red Blood Cell (RBC) Count 2.61 mill/uL (4.20-5.40); White Blood Cell (WBC) Count 11.9 10x3/uL (4.8-10.8)
[2022-06-22] MEDS ORDERED: Heparin 10,000 UNITS/ 10 ML VIAL ONE (13:53)
[2022-06-23 03:51] LABS: #Eosinphils 0.1 thou/uL (0.0-0.7); #Lymphocytes 1.1 thou/uL (1.20-3.40); #Monocytes 1.1 thou/uL (0.11-0.59); #Neutrophils 8.3 thou/uL (1.40-6.50); %Lymphocytes 10.2 % (21.0-51.0); %Monocytes 10.1 % (0.0-10.0); %Neutrophils 78.7 % (42.0-75.0); Hemoglobin 8.5 g/dL (12.0-16.0); Mean Corpuscular HGB CONC 33.5 g/dL (32.0-36.0); Mean Corpuscular Hemoglobin 33.3 pg (27.0-31.0); Mean Corpuscular Volume 99.6 fl (78.0-98.0); Mean Platelet Volume 9.8 fL (7.4-10.4); Platelet Count 182 10x3/uL (130-400); RBC Distribution Width 13.1 % (11.5-14.5); Red Blood Cell (RBC) Count 2.56 mill/uL (4.20-5.40); White Blood Cell (WBC) Count 10.5 10x3/uL (4.8-10.8)
[2022-06-23 03:58] VITALS: BMI 36.0
[2022-06-23 04:09] LABS: Anion Gap 17 mmol/L (10-20); BUN (Urea Nitrogen) 26 mg/dL (9.8-20.1); Calc. Creatinine Clearance 26 mL/min (70-130); Calcium 8.5 mg/dL (7.8-10.44); Carbon Dioxide 25 mmol/L (23-31); Chloride 100 mmol/L (98-107); Estimated GFR 21; Glucose 100 mg/dL (83-110); Potassium 3.2 mmol/L (3.5-5.1); Sodium 139 mmol/L (136-145)
[2022-06-23] MEDS: Heparin 5,000 UNITS/ML VIAL SC SCH ×3 (07:54→21:34)
[2022-06-23] MEDS: Pantoprazole 40 MG VIAL IVP SCH ×2 (07:54→21:36)
[2022-06-23] MEDS: Bisacodyl 10 MG SUPP PR SCH (08:14)
[2022-06-23] MEDS: hydrALAZINE 25 MG TAB PO SCH ×3 (10:11→21:35)
[2022-06-23] MEDS: Aspirin 81 mg Enteric Coated Tablet PO SCH (10:13)
[2022-06-23] MEDS: Clopidogrel Bisulfate 75 MG TAB PO SCH (10:13)
[2022-06-23] MEDS: Oxybutynin 5 MG TAB PO SCH (10:13)
[2022-06-23] MEDS: Folic Acid 1 MG TAB PO SCH (10:13)
[2022-06-23] MEDS: DRY MOUTH SPRAY PO SCH ×4 (10:16→21:37)
[2022-06-23] MEDS: NIFEdipine XL 60 MG TAB PO SCH (11:07)
[2022-06-23] MEDS: Calcitriol 0.25 MCG CAP PO SCH (11:20)
[2022-06-23] MEDS: Senokot S 8.6-50 MG TAB PO PRN (11:20)
[2022-06-23] MEDS: Carvedilol 25 MG TAB PO SCH ×3 (11:20→21:35)
[2022-06-23] MEDS ORDERED: Electrolyte Replacement Protocol 1 EACH FS PRN (12:43)
[2022-06-23] MEDS ORDERED: Potassium Chloride 20 MEQ TAB PO SCH (13:00)
[2022-06-23] MEDS ORDERED: Furosemide 20 MG/2 ML VIAL SLOW IVP SCH (16:08)
[2022-06-23 17:23] LABS: Potassium 3.7 mmol/L (3.5-5.1)
[2022-06-24 07:06] LABS: ALT (SGPT) 8 U/L (8-55); AST (SGOT) 12 U/L (5-34); Albumin 3.4 g/dL (3.4-4.8); Alkaline Phosphatase 70 U/L (40-110); Anion Gap 19 mmol/L (10-20); BUN (Urea Nitrogen) 56 mg/dL (9.8-20.1); Bilirubin, Total 1.2 mg/dL (0.2-1.2); Calc. Creatinine Clearance 18 mL/min (70-130); Calcium 8.6 mg/dL (7.8-10.44); Carbon Dioxide 23 mmol/L (23-31); Chloride 100 mmol/L (98-107); Estimated GFR 13; Globulin 2.7 g/dL (2.4-3.5); Glucose 116 mg/dL (83-110); Magnesium 1.9 mg/dL (1.6-2.6); Phosphorus 3.6 mg/dL (2.3-4.7); Potassium 3.5 mmol/L (3.5-5.1); Protein, Total 6.1 g/dL (5.8-8.1); Sodium 138 mmol/L (136-145)
[2022-06-24] MEDS: Heparin 5,000 UNITS/ML VIAL SC SCH ×3 (09:30→21:20)
[2022-06-24] MEDS: hydrALAZINE 25 MG TAB PO SCH ×3 (09:31→19:50)
[2022-06-24] MEDS: NIFEdipine XL 60 MG TAB PO SCH (09:31)
[2022-06-24] MEDS: Pantoprazole 40 MG VIAL IVP SCH ×2 (09:31→19:50)
[2022-06-24] MEDS: Aspirin 81 mg Enteric Coated Tablet PO SCH (09:31)
[2022-06-24] MEDS: Oxybutynin 5 MG TAB PO SCH (09:31)
[2022-06-24] MEDS: Clopidogrel Bisulfate 75 MG TAB PO SCH (09:32)
[2022-06-24] MEDS: Calcitriol 0.25 MCG CAP PO SCH (09:32)
[2022-06-24] MEDS: Carvedilol 25 MG TAB PO SCH ×2 (09:32→19:50)
[2022-06-24] MEDS: Folic Acid 1 MG TAB PO SCH (09:32)
[2022-06-24] MEDS: DRY MOUTH SPRAY PO SCH ×4 (09:32→19:51)
[2022-06-24 10:05] LABS: Eosinophils 1 % (0-10); Hemoglobin 9.2 g/dL (12.0-16.0); Lymphocytes 11 % (21-51); MDiff Complete? YES; Mean Corpuscular HGB CONC 33.2 g/dL (32.0-36.0); Mean Corpuscular Hemoglobin 32.7 pg (27.0-31.0); Mean Corpuscular Volume 98.3 fl (78.0-98.0); Mean Platelet Volume 9.8 fL (7.4-10.4); Monocytes 10 % (0-10); Neutrophil 77 % (42-75); Platelet Count 175 10x3/uL (130-400); Platelet Morphology Comment Appears Adequate; RBC Distribution Width 13.3 % (11.5-14.5); RBC Morphology Normal; White Blood Cell (WBC) Count 11.5 10x3/uL (4.8-10.8)
[2022-06-24] MEDS: Atorvastatin Calcium 10 MG TAB PO SCH (19:48)
[2022-06-25] MEDS: Carvedilol 25 MG TAB PO SCH ×2 (06:20→21:32)
[2022-06-25 07:24] LABS: #Eosinphils 0.1 thou/uL (0.0-0.7); #Lymphocytes 1.2 thou/uL (1.20-3.40); #Monocytes 0.8 thou/uL (0.11-0.59); #Neutrophils 7.4 thou/uL (1.40-6.50); %Basophils 0.2 % (0.0-1.0); %Eosinophils 0.9 % (0.0-10.0); %Lymphocytes 12.5 % (21.0-51.0); %Monocytes 8.8 % (0.0-10.0); %Neutrophils 77.5 % (42.0-75.0); Hemoglobin 8.9 g/dL (12.0-16.0); Mean Corpuscular HGB CONC 32.3 g/dL (32.0-36.0); Mean Corpuscular Hemoglobin 32.1 pg (27.0-31.0); Mean Corpuscular Volume 99.6 fl (78.0-98.0); Mean Platelet Volume 9.8 fL (7.4-10.4); Platelet Count 158 10x3/uL (130-400); RBC Distribution Width 13.3 % (11.5-14.5); Red Blood Cell (RBC) Count 2.77 mill/uL (4.20-5.40); White Blood Cell (WBC) Count 9.5 10x3/uL (4.8-10.8)
[2022-06-25 08:15] LABS: ALT (SGPT) 8 U/L (8-55); AST (SGOT) 11 U/L (5-34); Albumin 3.2 g/dL (3.4-4.8); Alkaline Phosphatase 67 U/L (40-110); Anion Gap 18 mmol/L (10-20); BUN (Urea Nitrogen) 77 mg/dL (9.8-20.1); Calc. Creatinine Clearance 17 mL/min (70-130); Calcium 8.2 mg/dL (7.8-10.44); Carbon Dioxide 23 mmol/L (23-31); Chloride 98 mmol/L (98-107); Estimated GFR 12; Globulin 2.5 g/dL (2.4-3.5); Glucose 103 mg/dL (83-110); Magnesium 1.7 mg/dL (1.6-2.6); Phosphorus 4.1 mg/dL (2.3-4.7); Potassium 3.5 mmol/L (3.5-5.1); Protein, Total 5.7 g/dL (5.8-8.1); Sodium 135 mmol/L (136-145)
[2022-06-25] MEDS: Heparin 5,000 UNITS/ML VIAL SC SCH ×2 (09:47→21:32)
[2022-06-25] MEDS: Pantoprazole 40 MG VIAL IVP SCH ×2 (09:48→21:33)
[2022-06-25] MEDS: Clopidogrel Bisulfate 75 MG TAB PO SCH (09:48)
[2022-06-25] MEDS: DRY MOUTH SPRAY PO SCH ×4 (09:50→21:33)
[2022-06-25] MEDS: Aspirin 81 mg Enteric Coated Tablet PO SCH (10:31)
[2022-06-25] MEDS: Calcitriol 0.25 MCG CAP PO SCH (10:31)
[2022-06-25] MEDS: hydrALAZINE 25 MG TAB PO SCH ×3 (10:32→21:32)
[2022-06-25] MEDS: NIFEdipine XL 60 MG TAB PO SCH (10:32)
[2022-06-25] MEDS: Folic Acid 1 MG TAB PO SCH (10:32)
[2022-06-25] MEDS: Furosemide 20 MG TAB PO SCH (10:32)
[2022-06-25] MEDS: Oxybutynin 5 MG TAB PO SCH (10:33)
[2022-06-25] MEDS ORDERED: Lidocaine 1% (PF) 30 ML VIAL ONE (11:34)
[2022-06-25] MEDS ORDERED: EPINEPHrine 1 MG/ML AMP ONE (11:34)
[2022-06-25] MEDS ORDERED: Protamine Sulfate 50 MG/5 ML VIAL ONE (11:34)
[2022-06-25] MEDS ORDERED: Heparin 5,000 UNITS/ML VIAL ONE (11:34)
[2022-06-25] MEDS ORDERED: Protamine Sulfate 250 MG/25 ML VIAL ONE (11:34)
[2022-06-25] MEDS ORDERED: Heparin 10,000 UNITS/ 10 ML VIAL ONE (11:34)
[2022-06-25] MEDS ORDERED: Bupivacaine PF 0.5% 30 ML VIAL ONE (11:34)
[2022-06-25] MEDS ORDERED: Ketamine 50 MG/ML (10ML VIAL) ONE (11:35)
[2022-06-25] MEDS ORDERED: fentaNYL PF 100 MCG/2 ML SYRINGE ONE (11:35)
[2022-06-25] MEDS ORDERED: Albumin 25% 200 ML ONE (11:36)
[2022-06-25] MEDS ORDERED: SUGAMMADEX SODIUM 200 MG/2 ML VIAL ONE (11:36)
[2022-06-25] MEDS ORDERED: PROPOFOL 200 MG/20 ML VIAL ONE (12:15)
[2022-06-25] MEDS ORDERED: Ondansetron PF 4 MG/2 ML Vial ONE (12:15)
[2022-06-25] MEDS ORDERED: Rocuronium Bromide 10 MG/ML (10ML VIAL) ONE (12:15)
[2022-06-25] MEDS ORDERED: NEOSTIGMINE 3 MG/3 ML SYR 3 MG/3 ML SYRINGE ONE (12:15)
[2022-06-25] MEDS ORDERED: Glycopyrrolate 0.2 MG/ML 5 ML SYRINGE ONE (12:15)
[2022-06-25] MEDS ORDERED: Bupivacaine HCl 0.5%/Epinephrine 1:200,000/PF 30 ml Vial ONE (12:29)
[2022-06-25] MEDS ORDERED: CEFAZOLIN 2 GM in Sodium Chloride 0.9% 100 ML IVPB SCH (17:30)
[2022-06-25] MEDS: Atorvastatin Calcium 10 MG TAB PO SCH (20:59)
[2022-06-25] MEDS: EPOETIN ALFA-EPBX (ESRD) 10,000 UNIT/ML VIAL SC SCH (21:31)
[2022-06-25] MEDS: Ondansetron PF 4 MG/2 ML Vial IVP PRN (21:33)
[2022-06-25] MEDS: traMADol HCl 50 MG TAB PO PRN (21:58)
[2022-06-26] MEDS: traMADol HCl 50 MG TAB PO PRN (06:28)
[2022-06-26 07:12] LABS: #Lymphocytes 1.2 thou/uL (1.20-3.40); #Monocytes 0.8 thou/uL (0.11-0.59); #Neutrophils 9.6 thou/uL (1.40-6.50); %Basophils 0.1 % (0.0-1.0); %Eosinophils 0.3 % (0.0-10.0); %Monocytes 6.7 % (0.0-10.0); %Neutrophils 82.9 % (42.0-75.0); Hemoglobin 9.1 g/dL (12.0-16.0); Mean Corpuscular HGB CONC 32.8 g/dL (32.0-36.0); Mean Corpuscular Hemoglobin 32.7 pg (27.0-31.0); Mean Corpuscular Volume 99.7 fl (78.0-98.0); Mean Platelet Volume 9.9 fL (7.4-10.4); Platelet Count 158 10x3/uL (130-400); RBC Distribution Width 13.4 % (11.5-14.5); Red Blood Cell (RBC) Count 2.79 mill/uL (4.20-5.40); White Blood Cell (WBC) Count 11.5 10x3/uL (4.8-10.8)
[2022-06-26 07:34] LABS: Anion Gap 17 mmol/L (10-20); BUN (Urea Nitrogen) 40 mg/dL (9.8-20.1); Calc. Creatinine Clearance 23 mL/min (70-130); Calcium 8.3 mg/dL (7.8-10.44); Carbon Dioxide 25 mmol/L (23-31); Chloride 98 mmol/L (98-107); Estimated GFR 18; Glucose 109 mg/dL (83-110); Potassium 3.3 mmol/L (3.5-5.1); Sodium 137 mmol/L (136-145)
[2022-06-26] MEDS ORDERED: Electrolyte Replacement Protocol 1 EACH FS ONE (07:43)
[2022-06-26] MEDS: Oxybutynin 5 MG TAB PO SCH (08:53)
[2022-06-26] MEDS: Folic Acid 1 MG TAB PO SCH (08:53)
[2022-06-26] MEDS: Pantoprazole 40 MG VIAL IVP SCH ×2 (08:53→20:05)
[2022-06-26] MEDS: Heparin 5,000 UNITS/ML VIAL SC SCH ×2 (08:53→20:07)
[2022-06-26] MEDS: Carvedilol 25 MG TAB PO SCH ×2 (08:54→22:10)
[2022-06-26] MEDS: Clopidogrel Bisulfate 75 MG TAB PO SCH (08:54)
[2022-06-26] MEDS: NIFEdipine XL 60 MG TAB PO SCH (08:54)
[2022-06-26] MEDS: Calcitriol 0.25 MCG CAP PO SCH (08:54)
[2022-06-26] MEDS: Aspirin 81 mg Enteric Coated Tablet PO SCH (08:54)
[2022-06-26] MEDS: Furosemide 20 MG TAB PO SCH (08:54)
[2022-06-26] MEDS: hydrALAZINE 25 MG TAB PO SCH ×3 (08:54→22:10)
[2022-06-26] MEDS ORDERED: Potassium Chloride 20 MEQ TAB PO SCH (09:15)
[2022-06-26] MEDS: DRY MOUTH SPRAY PO SCH ×4 (09:19→20:06)
[2022-06-26] MEDS: Atorvastatin Calcium 10 MG TAB PO SCH (20:06)
[2022-06-27 04:15] LABS: #Eosinphils 0.1 thou/uL (0.0-0.7); #Lymphocytes 1.1 thou/uL (1.20-3.40); #Monocytes 0.7 thou/uL (0.11-0.59); #Neutrophils 6.3 thou/uL (1.40-6.50); %Basophils 0.2 % (0.0-1.0); %Lymphocytes 13.9 % (21.0-51.0); %Monocytes 8.3 % (0.0-10.0); %Neutrophils 76.7 % (42.0-75.0); Hemoglobin 7.8 g/dL (12.0-16.0); Mean Corpuscular HGB CONC 33.5 g/dL (32.0-36.0); Mean Corpuscular Hemoglobin 33.2 pg (27.0-31.0); Mean Corpuscular Volume 99.1 fl (78.0-98.0); Mean Platelet Volume 9.4 fL (7.4-10.4); Platelet Count 136 10x3/uL (130-400); RBC Distribution Width 13.4 % (11.5-14.5); Red Blood Cell (RBC) Count 2.34 mill/uL (4.20-5.40); White Blood Cell (WBC) Count 8.2 10x3/uL (4.8-10.8)
[2022-06-27 04:36] LABS: ALT (SGPT) Less than 7 U/L (8-55); AST (SGOT) 13 U/L (5-34); Albumin 3.1 g/dL (3.4-4.8); Alkaline Phosphatase 65 U/L (40-110); Anion Gap 15 mmol/L (10-20); BUN (Urea Nitrogen) 53 mg/dL (9.8-20.1); Bilirubin, Total 0.7 mg/dL (0.2-1.2); Calc. Creatinine Clearance 17 mL/min (70-130); Calcium 7.9 mg/dL (7.8-10.44); Carbon Dioxide 25 mmol/L (23-31); Chloride 96 mmol/L (98-107); Estimated GFR 12; Globulin 2.5 g/dL (2.4-3.5); Glucose 96 mg/dL (83-110); Potassium 3.9 mmol/L (3.5-5.1); Protein, Total 5.6 g/dL (5.8-8.1); Sodium 132 mmol/L (136-145)
[2022-06-27] MEDS: Carvedilol 25 MG TAB PO SCH ×2 (09:19→21:12)
[2022-06-27] MEDS: Heparin 5,000 UNITS/ML VIAL SC SCH ×2 (09:20→21:14)
[2022-06-27] MEDS: hydrALAZINE 25 MG TAB PO SCH ×3 (09:20→21:13)
[2022-06-27] MEDS: Pantoprazole 40 MG VIAL IVP SCH ×2 (09:21→21:46)
[2022-06-27] MEDS: DRY MOUTH SPRAY PO SCH ×4 (09:21→21:46)
[2022-06-27] MEDS ORDERED: Heparin 10,000 UNITS/ 10 ML VIAL ONE (09:55)
[2022-06-27] MEDS ORDERED: VANCOMYCIN IVPB PRN (11:12)
[2022-06-27] MEDS: traMADol HCl 50 MG TAB PO PRN (11:13)
[2022-06-27] MEDS ORDERED: VANCOMYCIN 1.75 GM/500 ML BAG 1.75 GM in Premix Bag 1 BAG IVPB SCH ×2 (11:30→15:00)
[2022-06-27] MEDS ORDERED: Vancomycin Diaylsis Sliding Scale (Wt 71-99) FS SCH (11:30)
[2022-06-27] MEDS: NIFEdipine XL 60 MG TAB PO SCH (15:26)
[2022-06-27] MEDS: Clopidogrel Bisulfate 75 MG TAB PO SCH (15:27)
[2022-06-27] MEDS: Calcitriol 0.25 MCG CAP PO SCH (15:27)
[2022-06-27] MEDS: Folic Acid 1 MG TAB PO SCH (15:27)
[2022-06-27] MEDS: Aspirin 81 mg Enteric Coated Tablet PO SCH (15:27)
[2022-06-27] MEDS: Oxybutynin 5 MG TAB PO SCH (15:27)
[2022-06-27] MEDS: Furosemide 20 MG TAB PO SCH (15:27)
[2022-06-27] MEDS: Atorvastatin Calcium 10 MG TAB PO SCH (21:46)
[2022-06-28] MEDS ORDERED: Levothyroxine Sodium 25 MCG TAB PO SCH (06:00)
[2022-06-28 08:27] VITALS: TEMP 97.9
[2022-06-28] MEDS: Carvedilol 25 MG TAB PO SCH (08:43)
[2022-06-28] MEDS: Calcitriol 0.25 MCG CAP PO SCH (08:44)
[2022-06-28] MEDS: Aspirin 81 mg Enteric Coated Tablet PO SCH (08:44)
[2022-06-28] MEDS: hydrALAZINE 25 MG TAB PO SCH ×2 (08:44→14:35)
[2022-06-28] MEDS: Oxybutynin 5 MG TAB PO SCH (08:45)
[2022-06-28] MEDS: Folic Acid 1 MG TAB PO SCH (08:45)
[2022-06-28] MEDS: Heparin 5,000 UNITS/ML VIAL SC SCH (08:45)
[2022-06-28] MEDS: Clopidogrel Bisulfate 75 MG TAB PO SCH (08:45)
[2022-06-28] MEDS: Furosemide 20 MG TAB PO SCH (08:45)
[2022-06-28] MEDS: NIFEdipine XL 60 MG TAB PO SCH (08:46)
[2022-06-28] MEDS: Pantoprazole 40 MG VIAL IVP SCH (08:46)
[2022-06-28 09:25] LABS: #Eosinphils 0.1 thou/uL (0.0-0.7); #Lymphocytes 1.2 thou/uL (1.20-3.40); #Monocytes 0.7 thou/uL (0.11-0.59); #Neutrophils 5.9 thou/uL (1.40-6.50); %Eosinophils 0.8 % (0.0-10.0); %Lymphocytes 14.7 % (21.0-51.0); %Monocytes 8.8 % (0.0-10.0); %Neutrophils 75.7 % (42.0-75.0); Hemoglobin 7.9 g/dL (12.0-16.0); Mean Corpuscular HGB CONC 32.6 g/dL (32.0-36.0); Mean Corpuscular Hemoglobin 32.5 pg (27.0-31.0); Mean Corpuscular Volume 99.5 fl (78.0-98.0); Mean Platelet Volume 9.6 fL (7.4-10.4); Platelet Count 138 10x3/uL (130-400); RBC Distribution Width 13.4 % (11.5-14.5); Red Blood Cell (RBC) Count 2.43 mill/uL (4.20-5.40); White Blood Cell (WBC) Count 7.8 10x3/uL (4.8-10.8)
[2022-06-28 09:48] LABS: ALT (SGPT) Less than 7 U/L (8-55); AST (SGOT) 18 U/L (5-34); Albumin 3.2 g/dL (3.4-4.8); Alkaline Phosphatase 69 U/L (40-110); Anion Gap 16 mmol/L (10-20); BUN (Urea Nitrogen) 27 mg/dL (9.8-20.1); Bilirubin, Total 0.9 mg/dL (0.2-1.2); Calc. Creatinine Clearance 23 mL/min (70-130); Calcium 8.3 mg/dL (7.8-10.44); Carbon Dioxide 27 mmol/L (23-31); Chloride 93 mmol/L (98-107); Estimated GFR 17; Globulin 2.8 g/dL (2.4-3.5); Glucose 110 mg/dL (83-110); Potassium 3.8 mmol/L (3.5-5.1); Sodium 132 mmol/L (136-145)
[2022-06-28] MEDS: DRY MOUTH SPRAY PO SCH ×3 (12:01→16:43)
[2022-06-28 14:37] VITALS: BP 115/58
== END 2022-06-28 19:30 | DRG 264 ==
LOC: ERS 14:07 → SUATTDRO 14:07 → 2SW 16:02 → OBSVTOIN 06-14 10:29 → T4-B 06-19 12:24
PROVIDERS: ADMIT Internal Medicine; ATTEND Internal Medicine
PROC: 06HY33Z Insertion of Infusion Device into Lower Vein, Percutaneous Approach (ICD-10-PCS; 2022-06-16)
PROC: 5A1D70Z Performance of Urinary Filtration, Intermittent, Less than 6 Hours Per Day (ICD-10-PCS; principal; 2022-06-18)
PROC: 0D9680Z Drainage of Stomach with Drainage Device, Via Natural or Artificial Opening Endoscopic (ICD-10-PCS; 2022-06-20)
PROC: 031B3ZF Bypass Right Radial Artery to Lower Arm Vein, Percutaneous Approach (ICD-10-PCS; 2022-06-25)
PROC: 0JH63XZ Insertion of Tunneled Vascular Access Device into Chest Subcutaneous Tissue and Fascia, Percutaneous Approach (ICD-10-PCS; 2022-06-25)
PROC: 02HV33Z Insertion of Infusion Device into Superior Vena Cava, Percutaneous Approach (ICD-10-PCS; 2022-06-25)
PROC: B5181ZA Fluoroscopy of Superior Vena Cava using Low Osmolar Contrast, Guidance (ICD-10-PCS; 2022-06-25)
PROC: B548ZZA Ultrasonography of Superior Vena Cava, Guidance (ICD-10-PCS; 2022-06-25)
DX: I13.2 Hypertensive heart and chronic kidney disease with heart failure and with stage 5 chronic kidney disease, or end stage renal disease (principal); J18.9 Pneumonia, unspecified organism; I50.33 Acute on chronic diastolic (congestive) heart failure; J96.01 Acute respiratory failure with hypoxia; N18.6 End stage renal disease; K21.01 Gastro-esophageal reflux disease with esophagitis, with bleeding; E87.1 Hypo-osmolality and hyponatremia; J44.0 Chronic obstructive pulmonary disease with (acute) lower respiratory infection; N17.9 Acute kidney failure, unspecified; E87.20 Acidosis, unspecified; Z20.822 Contact with and (suspected) exposure to COVID-19; F41.9 Anxiety disorder, unspecified; K59.00 Constipation, unspecified; E03.9 Hypothyroidism, unspecified; D63.1 Anemia in chronic kidney disease; R53.81 Other malaise; E78.5 Hyperlipidemia, unspecified; I27.20 Pulmonary hypertension, unspecified; I50.810 Right heart failure, unspecified; E27.8 Other specified disorders of adrenal gland; I08.1 Rheumatic disorders of both mitral and tricuspid valves; E87.6 Hypokalemia; L89.152 Pressure ulcer of sacral region, stage 2; B95.62 Methicillin resistant Staphylococcus aureus infection as the cause of diseases classified elsewhere; K44.9 Diaphragmatic hernia without obstruction or gangrene; E66.01 Morbid (severe) obesity due to excess calories; I25.10 Atherosclerotic heart disease of native coronary artery without angina pectoris; E87.5 Hyperkalemia; Z79.899 Other long term (current) drug therapy; Z79.02 Long term (current) use of antithrombotics/antiplatelets; Z79.890 Hormone replacement therapy; Z79.82 Long term (current) use of aspirin; Z90.49 Acquired absence of other specified parts of digestive tract; Z90.89 Acquired absence of other organs; Z68.36 Body mass index [BMI] 36.0-36.9, adult
CPT/HCPCS: 36415; 71045; 74019; 74176; 76705; 80048; 80053; 82274; 82728; 83540; 83550; 83735; 83880; 83930; 83935; 84100; 84145; 84300; 84484; 85025; 86704; 86850; 86900; 86901; 87070; 87077; 87186; 87205; 87324; 87340; 87449; 87811; 90935; 93005; 93010; 93970; 94640; 96365; 96375; 96376; 97139; C1751; C1752; C1776; C9113; G0257; G0378; J0171; J0456; J0610; J0696; J1642; J1644; J1815; J1940; J2001; J2405; J2704; J2720; J2930; J3480; J3490; J7050; J7620; P9047; Q0162; Q5105; S0020; U0003; U0005

== ENCOUNTER 2022-07-19 07:36 | Inpatient (IN) | payer MEDICARE, OTHER ==
[2022-07-19] MEDS ORDERED: Cefepime 2 GM VIAL ONE (08:26)
[2022-07-19 08:29] LABS: #Basophils 0.1 thou/uL (0.0-0.2); #Eosinphils 0.1 thou/uL (0.0-0.7); #Lymphocytes 3.3 thou/uL (1.20-3.40); #Monocytes 0.6 thou/uL (0.11-0.59); #Neutrophils 7.6 thou/uL (1.40-6.50); %Basophils 0.5 % (0.0-1.0); %Eosinophils 0.8 % (0.0-10.0); %Lymphocytes 28.3 % (21.0-51.0); %Monocytes 5.2 % (0.0-10.0); %Neutrophils 65.2 % (42.0-75.0); Hemoglobin 9.2 g/dL (12.0-16.0); Mean Corpuscular HGB CONC 32.6 g/dL (32.0-36.0); Mean Corpuscular Hemoglobin 31.9 pg (27.0-31.0); Mean Corpuscular Volume 97.7 fl (78.0-98.0); Mean Platelet Volume 8.4 fL (7.4-10.4); Platelet Count 245 10x3/uL (130-400); RBC Distribution Width 15.2 % (11.5-14.5); Red Blood Cell (RBC) Count 2.89 mill/uL (4.20-5.40); White Blood Cell (WBC) Count 11.7 10x3/uL (4.8-10.8)
[2022-07-19 08:32] LABS: Actual Bicarbonate (HCO3v) 26 mEq/L (22-28); Analyzer IN Cardio ER; Base Excess 2.5 mEq/L (-2.0 to +3.0); Calcium, Ionized (venous) 1.05 mmol/L (1.16-1.32); Chloride (VBG) 95 mmol/L (98-106); Hemoglobin (Hb) 10.2 g/dL (11.7-16.1); Sodium 128.3 mmol/L (133-146); pH (venous) 7.46 (7.32-7.43)
[2022-07-19 08:44] LABS: Bacteria/HPF 3+ HPF (None Seen); Bilirubin Negative (Negative); Blood, Urine Trace (Negative); Clarity Extra Turbid (Clear); Glucose, Urine (Dipstick) Normal (Negative); Ketone, Urine Negative (Negative); Leukocyte 500 Leu/uL (Negative); Nitrite Negative (Negative); Protein, Urine (Dipstick) 200 mg/dL (Neg-Trace); Specific Gravity, Urine 1.018 (1.002-1.036); Squamous Epithelial 0-3 HPF (0-3); Urobilinogen Normal mg/dL (Less than 2); pH, Urine 7.5 (5.0-9.0)
[2022-07-19 08:46] LABS: WBC/HPF 21-50 HPF (0-3)
[2022-07-19 08:47] LABS: ALT (SGPT) 10 U/L (8-55); AST (SGOT) 23 U/L (5-34); Alkaline Phosphatase 75 U/L (40-110); Anion Gap 14 mmol/L (10-20); BUN (Urea Nitrogen) 29 mg/dL (9.8-20.1); Calc. Creatinine Clearance 0 mL/min (70-130); Calcium 8.2 mg/dL (7.8-10.44); Carbon Dioxide 25 mmol/L (23-31); Chloride 95 mmol/L (98-107); Estimated GFR 19; Globulin 3.1 g/dL (2.4-3.5); Glucose 133 mg/dL (83-110); Potassium 3.9 mmol/L (3.5-5.1); Protein, Total 6.1 g/dL (5.8-8.1); Sodium 130 mmol/L (136-145)
[2022-07-19 09:14] LABS: CKMB 1.9 ng/mL (0-6.6)
[2022-07-19] MEDS ORDERED: Ondansetron PF 4 MG/2 ML Vial IVP PRN (10:16)
[2022-07-19] MEDS ORDERED: Calcium Carbonate 500 MG ChewTAB PO PRN (10:16)
[2022-07-19] MEDS ORDERED: HYDROcodone/Acetaminophen 5/325 mg Tablet PO PRN (10:16)
[2022-07-19] MEDS ORDERED: Guaifenesin DM 100-10/5 ML UDCUP PO PRN (10:16)
[2022-07-19] MEDS ORDERED: Heparin 10,000 UNITS/ 10 ML VIAL ONE (12:20)
[2022-07-19 12:41] LABS: Critical Call Chem Troponin I RESULT DECREASING
[2022-07-19 12:57] LABS: HBSAB Concentration Less than 8.00 mIU/mL; HBSAg Index 0.45 S/CO (0-0.99); Hep B Core Total Ab Non-Reactive (NonReactive); Hep B Core Total Index 0.22 S/CO (0-0.79); Hep B Surf AB Non-Reactive (NonReactive); Hep B Surf Ag Non-Reactive S/CO (NonReactive); Hep C IgG Ab Non-Reactive (NonReactive); Hep C Index 0.11 S/CO (0-0.79)
[2022-07-19] MEDS ORDERED: Calcium Carbonate 500 MG TAB PO PRN (13:15)
[2022-07-19] MEDS ORDERED: Albuterol 200 PUFF (6.7GM INHALER) INH PRN (13:53)
[2022-07-19 15:31] LABS: Troponin I 1.911 ng/mL (< 0.028)
[2022-07-19] MEDS ORDERED: EPOETIN ALFA-EPBX (ESRD) 10,000 UNIT/ML VIAL SC SCH (16:00)
[2022-07-19] MEDS: hydrALAZINE 25 MG TAB PO SCH ×2 (16:58→20:45)
[2022-07-19] MEDS: Carvedilol 25 MG TAB PO SCH (18:40)
[2022-07-19] MEDS: Ferrous Sulfate 325 MG TAB PO SCH (18:40)
[2022-07-19] MEDS: Famotidine/PF 20 mg/2ml Vial SLOW IVP SCH (20:45)
[2022-07-19] MEDS: Famotidine 20 MG TAB PO SCH (20:46)
[2022-07-19] MEDS ORDERED: Atorvastatin Calcium 10 MG TAB PO SCH (21:00)
[2022-07-20 02:40] LABS: #Lymphocytes 2.3 thou/uL (1.20-3.40); #Monocytes 0.3 thou/uL (0.11-0.59); #Neutrophils 3.5 thou/uL (1.40-6.50); %Eosinophils 0.3 % (0.0-10.0); %Lymphocytes 37.6 % (21.0-51.0); %Monocytes 5.6 % (0.0-10.0); %Neutrophils 56.5 % (42.0-75.0); Hemoglobin 8.1 g/dL (12.0-16.0); Mean Corpuscular HGB CONC 33.5 g/dL (32.0-36.0); Mean Corpuscular Hemoglobin 32.7 pg (27.0-31.0); Mean Corpuscular Volume 97.8 fl (78.0-98.0); Mean Platelet Volume 8.5 fL (7.4-10.4); Platelet Count 164 10x3/uL (130-400); RBC Distribution Width 15.3 % (11.5-14.5); Red Blood Cell (RBC) Count 2.48 mill/uL (4.20-5.40); White Blood Cell (WBC) Count 6.1 10x3/uL (4.8-10.8)
[2022-07-20 03:40] LABS: Anion Gap 12 mmol/L (10-20); BUN (Urea Nitrogen) 22 mg/dL (9.8-20.1); Calc. Creatinine Clearance 33 mL/min (70-130); Calcium 8.1 mg/dL (7.8-10.44); Carbon Dioxide 26 mmol/L (23-31); Chloride 99 mmol/L (98-107); Estimated GFR 28; Glucose 94 mg/dL (83-110); Potassium 3.3 mmol/L (3.5-5.1); Sodium 134 mmol/L (136-145)
[2022-07-20] MEDS: Levothyroxine Sodium 25 MCG TAB PO SCH (05:22)
[2022-07-20] MEDS: cefTRIAXone\\ROCEPHIN 2 GM in Sodium Chloride 0.9% 100 ML IVPB SCH (08:58)
[2022-07-20] MEDS ORDERED: Ascorbic Acid 500 mg Chewable Tablet PO SCH ×2 (09:00→12:37)
[2022-07-20] MEDS: hydrALAZINE 25 MG TAB PO SCH ×3 (09:00→21:59)
[2022-07-20] MEDS: Calcitriol 0.25 MCG CAP PO SCH (09:00)
[2022-07-20] MEDS: Aspirin 81 mg Enteric Coated Tablet PO SCH (09:00)
[2022-07-20] MEDS ORDERED: NIFEdipine XL 60 MG TAB PO SCH (09:00)
[2022-07-20] MEDS ORDERED: Zinc Sulfate 220 MG CAP PO SCH ×2 (09:00→12:37)
[2022-07-20] MEDS: Oxybutynin 5 MG TAB PO SCH (09:01)
[2022-07-20] MEDS: Ferrous Sulfate 325 MG TAB PO SCH ×2 (09:01→16:11)
[2022-07-20] MEDS: Dexamethasone 4 MG TAB PO SCH (09:01)
[2022-07-20] MEDS: Carvedilol 25 MG TAB PO SCH ×2 (09:01→16:11)
[2022-07-20] MEDS: Folic Acid 1 MG TAB PO SCH (09:02)
[2022-07-20] MEDS ORDERED: Heparin 5,000 UNITS/ML VIAL SC SCH (11:30)
[2022-07-20 11:42] VITALS: BMI 34.0
[2022-07-20] MEDS ORDERED: Cholecalciferol 1,000 UNITS (25 MCG) TAB PO SCH (12:37)
[2022-07-20] MEDS: Heparin 5,000 UNITS/ML VIAL SC SCH (21:59)
[2022-07-20] MEDS: Atorvastatin Calcium 40 MG TAB PO SCH (21:59)
[2022-07-20] MEDS: Famotidine 20 MG TAB PO SCH (21:59)
[2022-07-20] MEDS: Famotidine/PF 20 mg/2ml Vial SLOW IVP SCH (22:00)
[2022-07-21] MEDS: Levothyroxine Sodium 25 MCG TAB PO SCH (07:28)
[2022-07-21] MEDS: cefTRIAXone\\ROCEPHIN 2 GM in Sodium Chloride 0.9% 100 ML IVPB SCH (08:56)
[2022-07-21] MEDS: Aspirin 81 mg Enteric Coated Tablet PO SCH (08:57)
[2022-07-21] MEDS: Oxybutynin 5 MG TAB PO SCH (08:57)
[2022-07-21] MEDS: Calcitriol 0.25 MCG CAP PO SCH (08:57)
[2022-07-21] MEDS: Folic Acid 1 MG TAB PO SCH (08:58)
[2022-07-21] MEDS: Zinc Sulfate 220 MG CAP PO SCH (08:58)
[2022-07-21] MEDS: Ferrous Sulfate 325 MG TAB PO SCH ×2 (08:58→16:44)
[2022-07-21] MEDS: Dexamethasone 4 MG TAB PO SCH (08:58)
[2022-07-21] MEDS: Cholecalciferol 1,000 UNITS (25 MCG) TAB PO SCH (08:58)
[2022-07-21] MEDS: Ascorbic Acid 500 mg Chewable Tablet PO SCH (08:59)
[2022-07-21] MEDS: Heparin 5,000 UNITS/ML VIAL SC SCH ×2 (08:59→21:33)
[2022-07-21] MEDS ORDERED: Albumin 25% 25 GM/100 ML BOT IVPB PRN (10:47)
[2022-07-21] MEDS: hydrALAZINE 25 MG TAB PO SCH ×3 (12:40→21:31)
[2022-07-21] MEDS: Carvedilol 25 MG TAB PO SCH ×2 (12:40→16:44)
[2022-07-21] MEDS ORDERED: Levofloxacin 250 mg/D5W 500 MG in Premix Bag 1 BAG IVPB SCH (14:45)
[2022-07-21] MEDS: Atorvastatin Calcium 40 MG TAB PO SCH (21:31)
[2022-07-21] MEDS: Famotidine 20 MG TAB PO SCH (21:32)
[2022-07-21] MEDS: Acetaminophen 325 MG TAB PO PRN (21:32)
[2022-07-21] MEDS: Benzonatate 100 MG CAP PO PRN (21:32)
[2022-07-21] MEDS: Famotidine/PF 20 mg/2ml Vial SLOW IVP SCH (21:33)
[2022-07-22] MEDS: Benzonatate 100 MG CAP PO PRN ×2 (05:36→20:28)
[2022-07-22] MEDS: Levothyroxine Sodium 25 MCG TAB PO SCH (05:36)
[2022-07-22 06:27] LABS: #Basophils 0.1 thou/uL (0.0-0.2); #Lymphocytes 1.1 thou/uL (1.20-3.40); #Monocytes 0.2 thou/uL (0.11-0.59); #Neutrophils 3.3 thou/uL (1.40-6.50); %Basophils 1.2 % (0.0-1.0); %Eosinophils 0.7 % (0.0-10.0); %Lymphocytes 22.9 % (21.0-51.0); %Monocytes 5.1 % (0.0-10.0); %Neutrophils 70.1 % (42.0-75.0); Hemoglobin 7.5 g/dL (12.0-16.0); Mean Corpuscular HGB CONC 33.3 g/dL (32.0-36.0); Mean Corpuscular Volume 98.9 fl (78.0-98.0); Mean Platelet Volume 8.6 fL (7.4-10.4); Platelet Count 175 10x3/uL (130-400); RBC Distribution Width 15.3 % (11.5-14.5); Red Blood Cell (RBC) Count 2.28 mill/uL (4.20-5.40); White Blood Cell (WBC) Count 4.7 10x3/uL (4.8-10.8)
[2022-07-22 06:48] LABS: Anion Gap 13 mmol/L (10-20); BUN (Urea Nitrogen) 23 mg/dL (9.8-20.1); Calc. Creatinine Clearance 28 mL/min (70-130); Calcium 8.3 mg/dL (7.8-10.44); Carbon Dioxide 26 mmol/L (23-31); Chloride 99 mmol/L (98-107); Estimated GFR 24; Glucose 112 mg/dL (83-110); Potassium 3.2 mmol/L (3.5-5.1); Sodium 135 mmol/L (136-145)
[2022-07-22] MEDS: Heparin 5,000 UNITS/ML VIAL SC SCH ×2 (07:59→20:32)
[2022-07-22] MEDS: Dexamethasone 4 MG TAB PO SCH (08:00)
[2022-07-22] MEDS: Folic Acid 1 MG TAB PO SCH (08:00)
[2022-07-22] MEDS: hydrALAZINE 25 MG TAB PO SCH ×3 (08:01→20:31)
[2022-07-22] MEDS: Oxybutynin 5 MG TAB PO SCH (08:01)
[2022-07-22] MEDS: Calcitriol 0.25 MCG CAP PO SCH (08:01)
[2022-07-22] MEDS: Aspirin 81 mg Enteric Coated Tablet PO SCH (08:01)
[2022-07-22] MEDS: Cholecalciferol 1,000 UNITS (25 MCG) TAB PO SCH (08:02)
[2022-07-22] MEDS: Zinc Sulfate 220 MG CAP PO SCH (08:02)
[2022-07-22] MEDS: Ferrous Sulfate 325 MG TAB PO SCH ×2 (08:02→16:59)
[2022-07-22] MEDS: Carvedilol 25 MG TAB PO SCH ×2 (08:02→16:59)
[2022-07-22] MEDS ORDERED: Potassium Bicarbonate/Cit Ac 20 MEQ TAB PO SCH (09:00)
[2022-07-22] MEDS ORDERED: NIFEdipine XL 60 MG TAB PO SCH (09:45)
[2022-07-22] MEDS: Ascorbic Acid 500 mg Chewable Tablet PO SCH (10:36)
[2022-07-22] MEDS ORDERED: Vancomycin Diaylsis Sliding Scale (Wt 71-99) FS SCH (15:30)
[2022-07-22] MEDS ORDERED: VANCOMYCIN 1.75 GM/500 ML BAG 1.75 GM in Premix Bag 1 BAG IVPB SCH (16:00)
[2022-07-22] MEDS: Atorvastatin Calcium 40 MG TAB PO SCH (20:28)
[2022-07-22] MEDS: Famotidine 20 MG TAB PO SCH (20:28)
[2022-07-22] MEDS: Senokot S 8.6-50 MG TAB PO PRN (20:29)
[2022-07-22] MEDS: Acetaminophen 325 MG TAB PO PRN (20:30)
[2022-07-23] MEDS: Levothyroxine Sodium 25 MCG TAB PO SCH (05:16)
[2022-07-23 07:36] LABS: Hemoglobin 7.6 g/dL (12.0-16.0); Mean Corpuscular HGB CONC 33.5 g/dL (32.0-36.0); Mean Corpuscular Volume 98.3 fl (78.0-98.0); Mean Platelet Volume 8.2 fL (7.4-10.4); Platelet Count 187 10x3/uL (130-400); RBC Distribution Width 15.6 % (11.5-14.5); Red Blood Cell (RBC) Count 2.31 mill/uL (4.20-5.40); White Blood Cell (WBC) Count 5.6 10x3/uL (4.8-10.8)
[2022-07-23 07:59] LABS: Anion Gap 17 mmol/L (10-20); BUN (Urea Nitrogen) 37 mg/dL (9.8-20.1); Calc. Creatinine Clearance 21 mL/min (70-130); Calcium 7.9 mg/dL (7.8-10.44); Carbon Dioxide 23 mmol/L (23-31); Chloride 98 mmol/L (98-107); Estimated GFR 17; Glucose 121 mg/dL (83-110); Potassium 3.8 mmol/L (3.5-5.1); Sodium 134 mmol/L (136-145)
[2022-07-23] MEDS: Heparin 5,000 UNITS/ML VIAL SC SCH ×2 (08:38→20:31)
[2022-07-23] MEDS: Carvedilol 25 MG TAB PO SCH ×2 (08:39→16:39)
[2022-07-23] MEDS: Ferrous Sulfate 325 MG TAB PO SCH ×2 (08:39→16:39)
[2022-07-23] MEDS: Dexamethasone 4 MG TAB PO SCH (08:39)
[2022-07-23] MEDS: Calcitriol 0.25 MCG CAP PO SCH (08:39)
[2022-07-23] MEDS: NIFEdipine XL 60 MG TAB PO SCH (08:39)
[2022-07-23] MEDS: Oxybutynin 5 MG TAB PO SCH (08:40)
[2022-07-23] MEDS: hydrALAZINE 25 MG TAB PO SCH ×3 (08:40→20:31)
[2022-07-23] MEDS: Folic Acid 1 MG TAB PO SCH (08:41)
[2022-07-23] MEDS: Cholecalciferol 1,000 UNITS (25 MCG) TAB PO SCH (08:41)
[2022-07-23] MEDS: Zinc Sulfate 220 MG CAP PO SCH (08:41)
[2022-07-23] MEDS: Ascorbic Acid 500 mg Chewable Tablet PO SCH (08:41)
[2022-07-23] MEDS: Aspirin 81 mg Enteric Coated Tablet PO SCH (10:55)
[2022-07-23] MEDS: Senokot S 8.6-50 MG TAB PO PRN (20:29)
[2022-07-23] MEDS: Famotidine 20 MG TAB PO SCH (20:29)
[2022-07-23] MEDS: Benzonatate 100 MG CAP PO PRN (20:29)
[2022-07-23] MEDS: Atorvastatin Calcium 40 MG TAB PO SCH (20:29)
[2022-07-23] MEDS: Acetaminophen 325 MG TAB PO PRN (20:30)
[2022-07-24] MEDS: Levothyroxine Sodium 25 MCG TAB PO SCH (05:20)
[2022-07-24] MEDS ORDERED: Lidocaine 2% Viscous Solution 10 ML, Aluminum & Magnesium Hydroxide 30 ML SSW SCH (07:00)
[2022-07-24 07:07] LABS: #Eosinphils 0.1 thou/uL (0.0-0.7); #Lymphocytes 1.4 thou/uL (1.20-3.40); #Monocytes 0.3 thou/uL (0.11-0.59); #Neutrophils 4.1 thou/uL (1.40-6.50); %Eosinophils 1.6 % (0.0-10.0); %Lymphocytes 23.8 % (21.0-51.0); %Monocytes 5.3 % (0.0-10.0); %Neutrophils 69.4 % (42.0-75.0); Hemoglobin 7.6 g/dL (12.0-16.0); Mean Corpuscular Hemoglobin 32.7 pg (27.0-31.0); Mean Platelet Volume 8.8 fL (7.4-10.4); Platelet Count 195 10x3/uL (130-400); RBC Distribution Width 15.8 % (11.5-14.5); Red Blood Cell (RBC) Count 2.31 mill/uL (4.20-5.40); White Blood Cell (WBC) Count 5.9 10x3/uL (4.8-10.8)
[2022-07-24 07:16] LABS: Anion Gap 18 mmol/L (10-20); BUN (Urea Nitrogen) 49 mg/dL (9.8-20.1); Calc. Creatinine Clearance 18 mL/min (70-130); Calcium 8.1 mg/dL (7.8-10.44); Carbon Dioxide 21 mmol/L (23-31); Chloride 96 mmol/L (98-107); Estimated GFR 14; Glucose 111 mg/dL (83-110); Sodium 131 mmol/L (136-145)
[2022-07-24] MEDS: hydrALAZINE 25 MG TAB PO SCH ×3 (09:12→22:11)
[2022-07-24] MEDS: NIFEdipine XL 60 MG TAB PO SCH (09:13)
[2022-07-24] MEDS: Carvedilol 25 MG TAB PO SCH ×2 (09:13→17:20)
[2022-07-24] MEDS: Dexamethasone 4 MG TAB PO SCH (09:29)
[2022-07-24] MEDS: Heparin 5,000 UNITS/ML VIAL SC SCH ×2 (09:30→22:12)
[2022-07-24] MEDS: Ferrous Sulfate 325 MG TAB PO SCH ×2 (09:30→17:20)
[2022-07-24] MEDS: Oxybutynin 5 MG TAB PO SCH (09:30)
[2022-07-24] MEDS: Ascorbic Acid 500 mg Chewable Tablet PO SCH (09:30)
[2022-07-24] MEDS: Cholecalciferol 1,000 UNITS (25 MCG) TAB PO SCH (09:30)
[2022-07-24] MEDS: Zinc Sulfate 220 MG CAP PO SCH (09:30)
[2022-07-24] MEDS: Calcitriol 0.25 MCG CAP PO SCH (09:30)
[2022-07-24] MEDS: Folic Acid 1 MG TAB PO SCH (09:30)
[2022-07-24] MEDS: Aspirin 81 mg Enteric Coated Tablet PO SCH (09:30)
[2022-07-24] MEDS: Epoetin (ESRD) 10,000 UNITS/ML VIAL SC SCH (14:29)
[2022-07-24] MEDS ORDERED: Vancomycin HCl 750 MG in Sodium Chloride 0.9% 250 ML 250 ML IVPB SCH (17:00)
[2022-07-24] MEDS ORDERED: Albumin 25% 25 GM/100 ML BOT IVPB PRN (17:15)
[2022-07-24] MEDS: Benzonatate 100 MG CAP PO PRN (22:10)
[2022-07-24] MEDS: Atorvastatin Calcium 40 MG TAB PO SCH (22:10)
[2022-07-24] MEDS: Famotidine 20 MG TAB PO SCH (22:11)
[2022-07-25] MEDS: Levothyroxine Sodium 25 MCG TAB PO SCH (05:44)
[2022-07-25 07:28] LABS: #Lymphocytes 1.1 thou/uL (1.20-3.40); #Monocytes 0.3 thou/uL (0.11-0.59); #Neutrophils 5.5 thou/uL (1.40-6.50); %Basophils 0.2 % (0.0-1.0); %Eosinophils 0.6 % (0.0-10.0); %Lymphocytes 15.4 % (21.0-51.0); %Monocytes 3.8 % (0.0-10.0); %Neutrophils 79.9 % (42.0-75.0); Hemoglobin 7.9 g/dL (12.0-16.0); Mean Corpuscular HGB CONC 32.1 g/dL (32.0-36.0); Mean Corpuscular Hemoglobin 32.2 pg (27.0-31.0); Mean Platelet Volume 8.4 fL (7.4-10.4); Platelet Count 183 10x3/uL (130-400); Red Blood Cell (RBC) Count 2.46 mill/uL (4.20-5.40); White Blood Cell (WBC) Count 6.9 10x3/uL (4.8-10.8)
[2022-07-25 07:35] LABS: Anion Gap 16 mmol/L (10-20); BUN (Urea Nitrogen) 25 mg/dL (9.8-20.1); Calc. Creatinine Clearance 27 mL/min (70-130); Calcium 7.9 mg/dL (7.8-10.44); Carbon Dioxide 24 mmol/L (23-31); Chloride 99 mmol/L (98-107); Estimated GFR 23; Glucose 113 mg/dL (83-110); Potassium 3.5 mmol/L (3.5-5.1); Sodium 135 mmol/L (136-145)
[2022-07-25] MEDS: Carvedilol 25 MG TAB PO SCH ×2 (09:35→16:08)
[2022-07-25] MEDS: Dexamethasone 4 MG TAB PO SCH (09:36)
[2022-07-25] MEDS: Calcitriol 0.25 MCG CAP PO SCH (09:36)
[2022-07-25] MEDS: Ferrous Sulfate 325 MG TAB PO SCH ×2 (09:36→16:08)
[2022-07-25] MEDS: Cholecalciferol 1,000 UNITS (25 MCG) TAB PO SCH (09:36)
[2022-07-25] MEDS: hydrALAZINE 25 MG TAB PO SCH ×3 (09:36→21:03)
[2022-07-25] MEDS: Zinc Sulfate 220 MG CAP PO SCH (09:37)
[2022-07-25] MEDS: Oxybutynin 5 MG TAB PO SCH (09:37)
[2022-07-25] MEDS: Folic Acid 1 MG TAB PO SCH (09:37)
[2022-07-25] MEDS: Aspirin 81 mg Enteric Coated Tablet PO SCH (09:37)
[2022-07-25] MEDS: NIFEdipine XL 60 MG TAB PO SCH (09:37)
[2022-07-25] MEDS: Ascorbic Acid 500 mg Chewable Tablet PO SCH (09:37)
[2022-07-25] MEDS: Heparin 5,000 UNITS/ML VIAL SC SCH ×2 (09:37→21:04)
[2022-07-25] MEDS: Famotidine 20 MG TAB PO SCH (21:04)
[2022-07-25] MEDS: Atorvastatin Calcium 40 MG TAB PO SCH (21:04)
[2022-07-26] MEDS: Levothyroxine Sodium 25 MCG TAB PO SCH (05:33)
[2022-07-26 07:02] LABS: #Lymphocytes 1.3 thou/uL (1.20-3.40); #Monocytes 0.3 thou/uL (0.11-0.59); #Neutrophils 5.3 thou/uL (1.40-6.50); %Basophils 0.2 % (0.0-1.0); %Eosinophils 0.7 % (0.0-10.0); %Lymphocytes 18.9 % (21.0-51.0); %Monocytes 4.5 % (0.0-10.0); %Neutrophils 75.7 % (42.0-75.0); Hemoglobin 7.9 g/dL (12.0-16.0); Mean Corpuscular HGB CONC 32.8 g/dL (32.0-36.0); Mean Corpuscular Hemoglobin 32.7 pg (27.0-31.0); Mean Corpuscular Volume 99.7 fl (78.0-98.0); Mean Platelet Volume 8.1 fL (7.4-10.4); Platelet Count 176 10x3/uL (130-400)
[2022-07-26 07:17] LABS: Anion Gap 14 mmol/L (10-20); BUN (Urea Nitrogen) 37 mg/dL (9.8-20.1); Calc. Creatinine Clearance 19 mL/min (70-130); Calcium 7.9 mg/dL (7.8-10.44); Carbon Dioxide 24 mmol/L (23-31); Chloride 98 mmol/L (98-107); Estimated GFR 15; Glucose 108 mg/dL (83-110); Potassium 3.7 mmol/L (3.5-5.1); Sodium 132 mmol/L (136-145); Vancomycin, Random 18.2 ug/mL (See Comment)
[2022-07-26] MEDS: Carvedilol 25 MG TAB PO SCH ×2 (08:31→18:16)
[2022-07-26] MEDS: NIFEdipine XL 60 MG TAB PO SCH (08:32)
[2022-07-26] MEDS: hydrALAZINE 25 MG TAB PO SCH ×3 (08:32→20:28)
[2022-07-26] MEDS: Folic Acid 1 MG TAB PO SCH (09:02)
[2022-07-26] MEDS: Calcitriol 0.25 MCG CAP PO SCH (09:02)
[2022-07-26] MEDS: Aspirin 81 mg Enteric Coated Tablet PO SCH (09:02)
[2022-07-26] MEDS: Ferrous Sulfate 325 MG TAB PO SCH ×2 (09:02→18:16)
[2022-07-26] MEDS: Cholecalciferol 1,000 UNITS (25 MCG) TAB PO SCH (09:02)
[2022-07-26] MEDS: Ascorbic Acid 500 mg Chewable Tablet PO SCH (09:02)
[2022-07-26] MEDS: Oxybutynin 5 MG TAB PO SCH (09:03)
[2022-07-26] MEDS: Heparin 5,000 UNITS/ML VIAL SC SCH ×2 (09:03→20:29)
[2022-07-26] MEDS: Zinc Sulfate 220 MG CAP PO SCH (09:04)
[2022-07-26] MEDS ORDERED: Heparin 10,000 UNITS/ 10 ML VIAL ONE (09:58)
[2022-07-26] MEDS: Dexamethasone 4 MG TAB PO SCH (14:06)
[2022-07-26] MEDS ORDERED: Vancomycin HCl 750 MG in Sodium Chloride 0.9% 250 ML 250 ML IVPB SCH (17:00)
[2022-07-26] MEDS: Famotidine 20 MG TAB PO SCH (20:29)
[2022-07-26] MEDS: Atorvastatin Calcium 40 MG TAB PO SCH (20:29)
[2022-07-27] MEDS: Levothyroxine Sodium 25 MCG TAB PO SCH (05:38)
[2022-07-27 07:39] LABS: #Lymphocytes 1.2 thou/uL (1.20-3.40); #Monocytes 0.3 thou/uL (0.11-0.59); %Basophils 0.1 % (0.0-1.0); %Eosinophils 0.3 % (0.0-10.0); %Lymphocytes 16.3 % (21.0-51.0); %Monocytes 3.4 % (0.0-10.0); %Neutrophils 79.9 % (42.0-75.0); Hemoglobin 8.6 g/dL (12.0-16.0); Mean Corpuscular HGB CONC 32.8 g/dL (32.0-36.0); Mean Corpuscular Hemoglobin 33.4 pg (27.0-31.0); Mean Platelet Volume 8.2 fL (7.4-10.4); Platelet Count 179 10x3/uL (130-400); RBC Distribution Width 16.7 % (11.5-14.5); Red Blood Cell (RBC) Count 2.58 mill/uL (4.20-5.40); White Blood Cell (WBC) Count 7.6 10x3/uL (4.8-10.8)
[2022-07-27 07:41] LABS: Anion Gap 14 mmol/L (10-20); BUN (Urea Nitrogen) 26 mg/dL (9.8-20.1); Calc. Creatinine Clearance 26 mL/min (70-130); Carbon Dioxide 25 mmol/L (23-31); Chloride 101 mmol/L (98-107); Estimated GFR 22; Glucose 113 mg/dL (83-110); Potassium 3.9 mmol/L (3.5-5.1); Sodium 136 mmol/L (136-145)
[2022-07-27] MEDS: NIFEdipine XL 60 MG TAB PO SCH (09:56)
[2022-07-27] MEDS: Carvedilol 25 MG TAB PO SCH ×2 (09:56→17:42)
[2022-07-27] MEDS: Aspirin 81 mg Enteric Coated Tablet PO SCH (09:56)
[2022-07-27] MEDS: Calcitriol 0.25 MCG CAP PO SCH (09:57)
[2022-07-27] MEDS: Cholecalciferol 1,000 UNITS (25 MCG) TAB PO SCH (09:57)
[2022-07-27] MEDS: hydrALAZINE 25 MG TAB PO SCH ×3 (09:57→20:14)
[2022-07-27] MEDS: Dexamethasone 4 MG TAB PO SCH (09:57)
[2022-07-27] MEDS: Folic Acid 1 MG TAB PO SCH (09:57)
[2022-07-27] MEDS: Ferrous Sulfate 325 MG TAB PO SCH ×2 (09:57→17:42)
[2022-07-27] MEDS: Zinc Sulfate 220 MG CAP PO SCH (09:57)
[2022-07-27] MEDS: Oxybutynin 5 MG TAB PO SCH (09:57)
[2022-07-27] MEDS: Ascorbic Acid 500 mg Chewable Tablet PO SCH (09:57)
[2022-07-27] MEDS: Heparin 5,000 UNITS/ML VIAL SC SCH ×2 (09:58→20:14)
[2022-07-27] MEDS: Atorvastatin Calcium 40 MG TAB PO SCH (20:13)
[2022-07-27] MEDS: Famotidine 20 MG TAB PO SCH (20:14)
[2022-07-28] MEDS: Levothyroxine Sodium 25 MCG TAB PO SCH (05:05)
[2022-07-28 08:30] LABS: #Lymphocytes 1.5 thou/uL (1.20-3.40); #Monocytes 0.4 thou/uL (0.11-0.59); #Neutrophils 6.1 thou/uL (1.40-6.50); %Basophils 0.2 % (0.0-1.0); %Eosinophils 0.5 % (0.0-10.0); %Monocytes 4.8 % (0.0-10.0); %Neutrophils 75.5 % (42.0-75.0); Hemoglobin 8.5 g/dL (12.0-16.0); Mean Corpuscular HGB CONC 33.7 g/dL (32.0-36.0); Mean Corpuscular Hemoglobin 33.4 pg (27.0-31.0); Mean Corpuscular Volume 99.3 fl (78.0-98.0); Mean Platelet Volume 8.4 fL (7.4-10.4); Platelet Count 160 10x3/uL (130-400); RBC Distribution Width 16.4 % (11.5-14.5); Red Blood Cell (RBC) Count 2.53 mill/uL (4.20-5.40); White Blood Cell (WBC) Count 8.1 10x3/uL (4.8-10.8)
[2022-07-28 08:47] LABS: Vancomycin, Random 18.5 ug/mL (See Comment)
[2022-07-28 08:49] LABS: Anion Gap 14 mmol/L (10-20); BUN (Urea Nitrogen) 38 mg/dL (9.8-20.1); Calc. Creatinine Clearance 20 mL/min (70-130); Carbon Dioxide 26 mmol/L (23-31); Chloride 98 mmol/L (98-107); Estimated GFR 16; Glucose 106 mg/dL (83-110); Potassium 3.9 mmol/L (3.5-5.1); Sodium 134 mmol/L (136-145)
[2022-07-28] MEDS: Carvedilol 25 MG TAB PO SCH ×2 (09:38→18:13)
[2022-07-28] MEDS: Ascorbic Acid 500 mg Chewable Tablet PO SCH (09:38)
[2022-07-28] MEDS: Ferrous Sulfate 325 MG TAB PO SCH ×2 (09:38→18:13)
[2022-07-28] MEDS: Dexamethasone 4 MG TAB PO SCH (09:38)
[2022-07-28] MEDS: Heparin 5,000 UNITS/ML VIAL SC SCH ×2 (09:39→20:49)
[2022-07-28] MEDS: Calcitriol 0.25 MCG CAP PO SCH (09:39)
[2022-07-28] MEDS: Folic Acid 1 MG TAB PO SCH (09:39)
[2022-07-28] MEDS: hydrALAZINE 25 MG TAB PO SCH ×3 (09:39→20:49)
[2022-07-28] MEDS: Cholecalciferol 1,000 UNITS (25 MCG) TAB PO SCH (09:39)
[2022-07-28] MEDS: NIFEdipine XL 60 MG TAB PO SCH (09:39)
[2022-07-28] MEDS: Aspirin 81 mg Enteric Coated Tablet PO SCH (09:39)
[2022-07-28] MEDS: Oxybutynin 5 MG TAB PO SCH (09:39)
[2022-07-28] MEDS: Zinc Sulfate 220 MG CAP PO SCH (09:40)
[2022-07-28] MEDS ORDERED: Heparin 10,000 UNITS/ 10 ML VIAL ONE (10:23)
[2022-07-28] MEDS ORDERED: Vancomycin HCl 750 MG in Sodium Chloride 0.9% 250 ML 250 ML IVPB SCH (17:00)
[2022-07-28] MEDS: Famotidine 20 MG TAB PO SCH (20:49)
[2022-07-28] MEDS: Atorvastatin Calcium 40 MG TAB PO SCH (20:49)
[2022-07-29] MEDS: Levothyroxine Sodium 25 MCG TAB PO SCH ×2 (05:09→09:00)
[2022-07-29 06:48] LABS: #Lymphocytes 1.5 thou/uL (1.20-3.40); #Monocytes 0.4 thou/uL (0.11-0.59); #Neutrophils 5.4 thou/uL (1.40-6.50); %Basophils 0.1 % (0.0-1.0); %Eosinophils 0.6 % (0.0-10.0); %Lymphocytes 20.4 % (21.0-51.0); %Monocytes 5.5 % (0.0-10.0); %Neutrophils 73.4 % (42.0-75.0); Hemoglobin 9.2 g/dL (12.0-16.0); Mean Corpuscular HGB CONC 32.8 g/dL (32.0-36.0); Mean Platelet Volume 8.2 fL (7.4-10.4); Platelet Count 142 10x3/uL (130-400); RBC Distribution Width 16.4 % (11.5-14.5); Red Blood Cell (RBC) Count 2.79 mill/uL (4.20-5.40); White Blood Cell (WBC) Count 7.3 10x3/uL (4.8-10.8)
[2022-07-29 07:13] LABS: Anion Gap 14 mmol/L (10-20); BUN (Urea Nitrogen) 20 mg/dL (9.8-20.1); Calc. Creatinine Clearance 28 mL/min (70-130); Calcium 7.9 mg/dL (7.8-10.44); Carbon Dioxide 26 mmol/L (23-31); Chloride 100 mmol/L (98-107); Estimated GFR 24; Glucose 85 mg/dL (83-110); Potassium 3.5 mmol/L (3.5-5.1); Sodium 136 mmol/L (136-145)
[2022-07-29] MEDS: Cholecalciferol 1,000 UNITS (25 MCG) TAB PO SCH (09:01)
[2022-07-29] MEDS: Calcitriol 0.25 MCG CAP PO SCH (09:01)
[2022-07-29] MEDS: Ascorbic Acid 500 mg Chewable Tablet PO SCH (09:01)
[2022-07-29] MEDS: Carvedilol 25 MG TAB PO SCH ×2 (09:01→18:00)
[2022-07-29] MEDS: Dexamethasone 4 MG TAB PO SCH (09:01)
[2022-07-29] MEDS: Heparin 5,000 UNITS/ML VIAL SC SCH ×2 (09:01→22:32)
[2022-07-29] MEDS: Aspirin 81 mg Enteric Coated Tablet PO SCH (09:01)
[2022-07-29] MEDS: Folic Acid 1 MG TAB PO SCH (09:01)
[2022-07-29] MEDS: Ferrous Sulfate 325 MG TAB PO SCH ×2 (09:01→18:00)
[2022-07-29] MEDS: hydrALAZINE 25 MG TAB PO SCH ×3 (09:02→22:31)
[2022-07-29] MEDS: Zinc Sulfate 220 MG CAP PO SCH (09:02)
[2022-07-29] MEDS: NIFEdipine XL 60 MG TAB PO SCH (09:02)
[2022-07-29] MEDS: Oxybutynin 5 MG TAB PO SCH (09:02)
[2022-07-29] MEDS: Atorvastatin Calcium 40 MG TAB PO SCH (22:31)
[2022-07-29] MEDS: Famotidine 20 MG TAB PO SCH (22:31)
[2022-07-30] MEDS: Levothyroxine Sodium 25 MCG TAB PO SCH (05:17)
[2022-07-30 07:11] LABS: #Eosinphils 0.1 thou/uL (0.0-0.7); #Lymphocytes 1.3 thou/uL (1.20-3.40); #Monocytes 0.4 thou/uL (0.11-0.59); #Neutrophils 5.5 thou/uL (1.40-6.50); %Basophils 0.1 % (0.0-1.0); %Eosinophils 0.9 % (0.0-10.0); %Lymphocytes 18.5 % (21.0-51.0); %Monocytes 4.9 % (0.0-10.0); %Neutrophils 75.6 % (42.0-75.0); Hemoglobin 9.8 g/dL (12.0-16.0); Mean Corpuscular HGB CONC 33.7 g/dL (32.0-36.0); Mean Corpuscular Hemoglobin 33.8 pg (27.0-31.0); Mean Platelet Volume 8.4 fL (7.4-10.4); Platelet Count 125 10x3/uL (130-400); RBC Distribution Width 16.2 % (11.5-14.5); Red Blood Cell (RBC) Count 2.91 mill/uL (4.20-5.40); White Blood Cell (WBC) Count 7.3 10x3/uL (4.8-10.8)
[2022-07-30 07:15] LABS: Vancomycin, Random 12.3 ug/mL (See Comment)
[2022-07-30 07:17] LABS: Anion Gap 15 mmol/L (10-20); BUN (Urea Nitrogen) 48 mg/dL (9.8-20.1); Calc. Creatinine Clearance 22 mL/min (70-130); Calcium 8.2 mg/dL (7.8-10.44); Carbon Dioxide 24 mmol/L (23-31); Chloride 98 mmol/L (98-107); Estimated GFR 18; Glucose 95 mg/dL (83-110); Potassium 3.3 mmol/L (3.5-5.1); Sodium 134 mmol/L (136-145)
[2022-07-30] MEDS: Oxybutynin 5 MG TAB PO SCH (08:29)
[2022-07-30] MEDS: Calcitriol 0.25 MCG CAP PO SCH (08:29)
[2022-07-30] MEDS: hydrALAZINE 25 MG TAB PO SCH ×3 (08:32→20:57)
[2022-07-30] MEDS: Carvedilol 25 MG TAB PO SCH ×2 (08:32→18:05)
[2022-07-30] MEDS: Cholecalciferol 1,000 UNITS (25 MCG) TAB PO SCH (08:33)
[2022-07-30] MEDS: NIFEdipine XL 60 MG TAB PO SCH (08:33)
[2022-07-30] MEDS: Ferrous Sulfate 325 MG TAB PO SCH ×2 (08:33→18:05)
[2022-07-30] MEDS: Aspirin 81 mg Enteric Coated Tablet PO SCH (08:33)
[2022-07-30] MEDS: Heparin 5,000 UNITS/ML VIAL SC SCH ×2 (08:33→20:58)
[2022-07-30] MEDS: Folic Acid 1 MG TAB PO SCH (08:33)
[2022-07-30] MEDS ORDERED: Potassium Chloride 20 MEQ TAB PO SCH (09:00)
[2022-07-30] MEDS: Famotidine 20 MG TAB PO SCH (20:57)
[2022-07-30] MEDS: Atorvastatin Calcium 40 MG TAB PO SCH (20:58)
[2022-07-31] MEDS: Levothyroxine Sodium 25 MCG TAB PO SCH (05:32)
[2022-07-31 06:32] LABS: #Eosinphils 0.1 thou/uL (0.0-0.7); #Lymphocytes 1.3 thou/uL (1.20-3.40); #Monocytes 0.4 thou/uL (0.11-0.59); #Neutrophils 5.3 thou/uL (1.40-6.50); %Basophils 0.1 % (0.0-1.0); %Eosinophils 0.8 % (0.0-10.0); %Monocytes 5.1 % (0.0-10.0); %Neutrophils 75.1 % (42.0-75.0); Hemoglobin 9.2 g/dL (12.0-16.0); Mean Corpuscular HGB CONC 33.9 g/dL (32.0-36.0); Mean Corpuscular Hemoglobin 33.7 pg (27.0-31.0); Mean Corpuscular Volume 99.4 fl (78.0-98.0); Platelet Count 99 10x3/uL (130-400); RBC Distribution Width 16.6 % (11.5-14.5); Red Blood Cell (RBC) Count 2.73 mill/uL (4.20-5.40)
[2022-07-31 06:46] LABS: Anion Gap 16 mmol/L (10-20); BUN (Urea Nitrogen) 58 mg/dL (9.8-20.1); Calc. Creatinine Clearance 17 mL/min (70-130); Calcium 8.3 mg/dL (7.8-10.44); Carbon Dioxide 22 mmol/L (23-31); Chloride 99 mmol/L (98-107); Estimated GFR 14; Glucose 100 mg/dL (83-110); Potassium 4.3 mmol/L (3.5-5.1); Sodium 133 mmol/L (136-145)
[2022-07-31] MEDS ORDERED: Heparin 10,000 UNITS/ 10 ML VIAL ONE (10:14)
[2022-07-31 11:37] LABS: Vancomycin, Random 10.4 ug/mL (See Comment)
[2022-07-31] MEDS: Oxybutynin 5 MG TAB PO SCH (13:31)
[2022-07-31] MEDS: Cholecalciferol 1,000 UNITS (25 MCG) TAB PO SCH (13:34)
[2022-07-31] MEDS: hydrALAZINE 25 MG TAB PO SCH ×3 (13:35→21:19)
[2022-07-31] MEDS: Folic Acid 1 MG TAB PO SCH (13:35)
[2022-07-31] MEDS: Carvedilol 25 MG TAB PO SCH ×2 (13:36→18:22)
[2022-07-31] MEDS: NIFEdipine XL 60 MG TAB PO SCH (13:36)
[2022-07-31] MEDS: Ferrous Sulfate 325 MG TAB PO SCH ×2 (13:37→18:23)
[2022-07-31] MEDS: Calcitriol 0.25 MCG CAP PO SCH (13:37)
[2022-07-31] MEDS: Aspirin 81 mg Enteric Coated Tablet PO SCH (13:38)
[2022-07-31] MEDS: Heparin 5,000 UNITS/ML VIAL SC SCH ×2 (16:18→21:18)
[2022-07-31] MEDS: Epoetin (ESRD) 10,000 UNITS/ML VIAL SC SCH (16:28)
[2022-07-31] MEDS ORDERED: EPOETIN ALFA-EPBX (ESRD) 10,000 UNIT/ML VIAL SC SCH (17:00)
[2022-07-31] MEDS ORDERED: Vancomycin 1 GM in Premix Bag 1 BAG IVPB SCH (17:00)
[2022-07-31] MEDS ORDERED: Mag-Al 1200 mg/1200 mg/30 ML UDCUP PO PRN (19:33)
[2022-07-31] MEDS: Atorvastatin Calcium 40 MG TAB PO SCH (20:09)
[2022-07-31] MEDS: Famotidine 20 MG TAB PO SCH (20:09)
[2022-08-01] MEDS: Levothyroxine Sodium 25 MCG TAB PO SCH (05:24)
[2022-08-01 07:55] LABS: Anion Gap 14 mmol/L (10-20); BUN (Urea Nitrogen) 42 mg/dL (9.8-20.1); Calc. Creatinine Clearance 20 mL/min (70-130); Calcium 8.4 mg/dL (7.8-10.44); Carbon Dioxide 29 mmol/L (23-31); Chloride 94 mmol/L (98-107); Estimated GFR 16; Glucose 138 mg/dL (83-110); Potassium 3.4 mmol/L (3.5-5.1); Sodium 134 mmol/L (136-145)
[2022-08-01 08:13] LABS: Band 5 % (5-11); Hemoglobin 10.4 g/dL (12.0-16.0); Hypersemented Neutrophil SLIGHT; Lymphocytes 15 % (21-51); MDiff Complete? YES; Mean Corpuscular HGB CONC 32.9 g/dL (32.0-36.0); Mean Corpuscular Hemoglobin 33.3 pg (27.0-31.0); Mean Platelet Volume 8.7 fL (7.4-10.4); Monocytes 10 % (0-10); Neutrophil 69 % (42-75); Platelet Count 105 10x3/uL (130-400); Platelet Morphology Comment Appears Decreased; Polychromasia SLIGHT = 2-3 cells (100X) (0-2/hpf); RBC Distribution Width 16.6 % (11.5-14.5); Reactive Lymphocytes 1 % (0-10); Red Blood Cell (RBC) Count 3.13 mill/uL (4.20-5.40); White Blood Cell (WBC) Count 12.3 10x3/uL (4.8-10.8)
[2022-08-01] MEDS: Heparin 5,000 UNITS/ML VIAL SC SCH (08:40)
[2022-08-01] MEDS: Carvedilol 25 MG TAB PO SCH ×2 (08:41→15:06)
[2022-08-01] MEDS: hydrALAZINE 25 MG TAB PO SCH ×2 (08:41→15:06)
[2022-08-01] MEDS: NIFEdipine XL 60 MG TAB PO SCH (08:41)
[2022-08-01] MEDS: Cholecalciferol 1,000 UNITS (25 MCG) TAB PO SCH (08:54)
[2022-08-01] MEDS: Calcitriol 0.25 MCG CAP PO SCH (08:54)
[2022-08-01] MEDS: Aspirin 81 mg Enteric Coated Tablet PO SCH (08:54)
[2022-08-01] MEDS: Ferrous Sulfate 325 MG TAB PO SCH ×2 (08:54→15:06)
[2022-08-01] MEDS: Folic Acid 1 MG TAB PO SCH (08:54)
[2022-08-01] MEDS: Oxybutynin 5 MG TAB PO SCH (08:55)
[2022-08-01 09:24] VITALS: BP 109/64; TEMP 97.6
== END 2022-08-01 16:17 | DRG 871 ==
LOC: ERS 07:36 → IMCU/EMU 09:41 → T4-B 07-21 18:24
PROVIDERS: ADMIT Internal Medicine; ATTEND Internal Medicine
PROC: 5A09357 Assistance with Respiratory Ventilation, Less than 24 Consecutive Hours, Continuous Positive Airway Pressure (ICD-10-PCS; principal; 2022-07-19)
PROC: 8E0ZXY6 Isolation (ICD-10-PCS; 2022-07-19)
PROC: 5A1D70Z Performance of Urinary Filtration, Intermittent, Less than 6 Hours Per Day (ICD-10-PCS; 2022-07-19)
PROC: 3E03329 Introduction of Other Anti-infective into Peripheral Vein, Percutaneous Approach (ICD-10-PCS; 2022-07-19)
DX: A41.89 Other specified sepsis (principal); I21.A1 Myocardial infarction type 2; U07.1 COVID-19; N18.6 End stage renal disease; I50.33 Acute on chronic diastolic (congestive) heart failure; J12.9 Viral pneumonia, unspecified; J96.21 Acute and chronic respiratory failure with hypoxia; I13.2 Hypertensive heart and chronic kidney disease with heart failure and with stage 5 chronic kidney disease, or end stage renal disease; E87.1 Hypo-osmolality and hyponatremia; N39.0 Urinary tract infection, site not specified; E03.9 Hypothyroidism, unspecified; Z96.649 Presence of unspecified artificial hip joint; I27.20 Pulmonary hypertension, unspecified; D63.1 Anemia in chronic kidney disease; G47.33 Obstructive sleep apnea (adult) (pediatric); B95.62 Methicillin resistant Staphylococcus aureus infection as the cause of diseases classified elsewhere; B95.2 Enterococcus as the cause of diseases classified elsewhere; Z99.2 Dependence on renal dialysis; Z79.899 Other long term (current) drug therapy; Z79.82 Long term (current) use of aspirin; Z79.890 Hormone replacement therapy; Z82.49 Family history of ischemic heart disease and other diseases of the circulatory system; L89.90 Pressure ulcer of unspecified site, unspecified stage
CPT/HCPCS: 36415; 71045; 80048; 80202; 81003; 81015; 82553; 82728; 82805; 83605; 83880; 84134; 84484; 85025; 85027; 85379; 86140; 86704; 87040; 87077; 87086; 87186; 90935; 93005; 93306; 94660; 94760; 96365; 96375; 97139; G0257; J0692; J0696; J1644; J1956; J2405; J3370; J3370-JW; J3490; J7050; J8540; Q4081; Q5105; S0028; U0003; U0005

== ENCOUNTER 2022-08-02 08:37 | Inpatient (IN) | payer MEDICARE, OTHER ==
[2022-08-02] MEDS ORDERED: Pantoprazole 40 MG VIAL ONE (09:12)
[2022-08-02] MEDS ORDERED: Ondansetron PF 4 MG/2 ML Vial ONE (09:12)
[2022-08-02 09:36] LABS: Hemoglobin 10.4 g/dL (12.0-16.0); Mean Corpuscular HGB CONC 33.4 g/dL (32.0-36.0); Mean Corpuscular Hemoglobin 33.2 pg (27.0-31.0); Mean Corpuscular Volume 99.6 fl (78.0-98.0); Mean Platelet Volume 9.6 fL (7.4-10.4); Platelet Count 116 10x3/uL (130-400); RBC Distribution Width 16.5 % (11.5-14.5); Red Blood Cell (RBC) Count 3.14 mill/uL (4.20-5.40); White Blood Cell (WBC) Count 20.5 10x3/uL (4.8-10.8)
[2022-08-02 09:49] LABS: ALT (SGPT) 10 U/L (8-55); AST (SGOT) 12 U/L (5-34); Albumin 3.2 g/dL (3.4-4.8); Alkaline Phosphatase 50 U/L (40-110); Anion Gap 19 mmol/L (10-20); BUN (Urea Nitrogen) 90 mg/dL (9.8-20.1); Bilirubin, Total 1.3 mg/dL (0.2-1.2); CK (CPK) Less than 9 U/L (29-168); Calc. Creatinine Clearance 0 mL/min (70-130); Calcium 8.5 mg/dL (7.8-10.44); Carbon Dioxide 25 mmol/L (23-31); Chloride 93 mmol/L (98-107); Estimated GFR 12; Globulin 2.2 g/dL (2.4-3.5); Glucose 130 mg/dL (83-110); Lipase 20 U/L (8-78); Potassium 4.1 mmol/L (3.5-5.1); Protein, Total 5.4 g/dL (5.8-8.1); Sodium 133 mmol/L (136-145)
[2022-08-02 10:17] LABS: Band 7 % (5-11); Lymphocytes 16 % (21-51); MDiff Complete? YES; Monocytes 3 % (0-10); Neutrophil 74 % (42-75); Platelet Morphology Comment Appears Decreased; Polychromasia SLIGHT = 2-3 cells (100X) (0-2/hpf)
[2022-08-02 10:19] LABS: PTT 30.3 sec (22.9-36.1)
[2022-08-02] MEDS ORDERED: Octreotide Acetate 500 MCG/ML VIAL ONE (10:21)
[2022-08-02] MEDS ORDERED: Vancomycin 1 GM/200 ML (FROZEN) BAG ONE (10:21)
[2022-08-02] MEDS ORDERED: Cefepime 2 GM VIAL ONE (10:21)
[2022-08-02 10:22] LABS: CKMB 0.3 ng/mL (0-6.6)
[2022-08-02] MEDS ORDERED: Octreotide Acetate 50 MCG/ML AMP SLOW IVP SCH (10:30)
[2022-08-02] MEDS ORDERED: Octreotide Acetate 1,250 MCG in Sodium Chloride 0.9% 250 ML 250 ML IVPB SCH (10:30)
[2022-08-02] MEDS ORDERED: Benzocaine 20% Spray 60 ML CAN ONE (11:04)
[2022-08-02] MEDS ORDERED: Lidocaine Viscous Sol 2% 15 ml UD Cup ONE (11:04)
[2022-08-02] MEDS ORDERED: Acetaminophen 650 MG Suppository PR PRN ×2 (11:05→22:03)
[2022-08-02] MEDS ORDERED: Ondansetron PF 4 MG/2 ML Vial IVP PRN ×2 (11:05→22:03)
[2022-08-02] MEDS ORDERED: Acetaminophen 325 MG TAB PO PRN (11:05)
[2022-08-02] MEDS ORDERED: Ondansetron ODT 4 MG TAB PO PRN ×2 (11:05→22:03)
[2022-08-02 11:07] LABS: Bilirubin 1+ (Negative); Blood, Urine Negative (Negative); Clarity Turbid (Clear); Glucose, Urine (Dipstick) Normal (Negative); Ketone, Urine Negative (Negative); Leukocyte 75 Leu/uL (Negative); Nitrite Negative (Negative); Protein, Urine (Dipstick) 100 mg/dL (Neg-Trace); Specific Gravity, Urine 1.022 (1.002-1.036); Squamous Epithelial 0-3 HPF (0-3); Urobilinogen Normal mg/dL (Less than 2); Yeast-Budding 2+ HPF (None Seen); pH, Urine 5.5 (5.0-9.0)
[2022-08-02] MEDS ORDERED: Sodium Chloride 0.9% 1,000 ML IV SCH (11:15)
[2022-08-02 11:23] LABS: Bacteria/HPF Rare-Few HPF (None Seen); RBC/HPF 0-3 HPF (0-3)
[2022-08-02 11:24] LABS: Yeast-Hyphae Rare HPF (None Seen)
[2022-08-02] MEDS ORDERED: Succinylcholine Chloride 100 MG/5 ML SYRINGE FS ONE (13:35)
[2022-08-02] MEDS ORDERED: Iopamidol-370 76% 500 ML 1 ML ONE (14:26)
[2022-08-02 14:46] LABS: Lactic Acid 3.5 mmol/L (0.5-2.2)
[2022-08-02 14:54] LABS: Troponin I 0.194 ng/mL (< 0.028)
[2022-08-02 16:04] LABS: SARS-CoV-2 NAA Rapid Test DETECTED (NotDetected)
[2022-08-02] MEDS ORDERED: Pantoprazole 40 MG VIAL IVP SCH ×2 (21:00→22:15)
[2022-08-02 21:02] LABS: Troponin I 0.171 ng/mL (< 0.028)
[2022-08-02] MEDS: Sodium Chloride 0.9% 1,000 ML IV SCH (22:13)
[2022-08-02 22:42] VITALS: BMI 38.0
[2022-08-02] MEDS ORDERED: Piperacillin/Tazobactam 3.375 GM in Sodium Chloride 0.9% 100 ML IVPB SCH ×2 (22:45→23:59)
[2022-08-03] MEDS: Piperacillin/Tazobactam 3.375 GM in Sodium Chloride 0.9% 100 ML IVPB SCH ×2 (02:55→16:00)
[2022-08-03] MEDS: Pantoprazole 40 MG VIAL IVP SCH ×2 (09:04→22:59)
[2022-08-03 11:26] LABS: #Eosinphils 0.1 thou/uL (0.0-0.7); #Lymphocytes 1.9 thou/uL (1.20-3.40); #Monocytes 0.5 thou/uL (0.11-0.59); #Neutrophils 6.7 thou/uL (1.40-6.50); %Basophils 0.2 % (0.0-1.0); %Eosinophils 0.8 % (0.0-10.0); %Lymphocytes 20.9 % (21.0-51.0); %Monocytes 5.1 % (0.0-10.0); %Neutrophils 73.1 % (42.0-75.0); Hemoglobin 7.4 g/dL (12.0-16.0); Mean Corpuscular HGB CONC 33.2 g/dL (32.0-36.0); Mean Corpuscular Hemoglobin 33.5 pg (27.0-31.0); Mean Platelet Volume 9.6 fL (7.4-10.4); Platelet Count 75 10x3/uL (130-400); RBC Distribution Width 16.6 % (11.5-14.5); White Blood Cell (WBC) Count 9.2 10x3/uL (4.8-10.8)
[2022-08-03 11:31] LABS: Anion Gap 17 mmol/L (10-20); BUN (Urea Nitrogen) 89 mg/dL (9.8-20.1); Calc. Creatinine Clearance 14 mL/min (70-130); Calcium 8.1 mg/dL (7.8-10.44); Carbon Dioxide 22 mmol/L (23-31); Chloride 97 mmol/L (98-107); Estimated GFR 12; Glucose 89 mg/dL (83-110); Potassium 3.5 mmol/L (3.5-5.1); Sodium 132 mmol/L (136-145)
[2022-08-03] MEDS ORDERED: Bisacodyl 10 MG SUPP PR SCH (14:15)
[2022-08-03] MEDS: Sodium Chloride 0.9% 1,000 ML IV SCH (16:00)
[2022-08-03 18:33] LABS: Hemoglobin 6.7 g/dL (12.0-16.0)
[2022-08-03] MEDS: Bisacodyl 10 MG SUPP PR SCH (22:59)
[2022-08-04] MEDS: Sodium Chloride 0.9% 1,000 ML IV SCH ×2 (02:54→15:19)
[2022-08-04] MEDS: Piperacillin/Tazobactam 3.375 GM in Sodium Chloride 0.9% 100 ML IVPB SCH ×2 (04:45→14:53)
[2022-08-04 05:02] LABS: #Eosinphils 0.1 thou/uL (0.0-0.7); #Lymphocytes 1.4 thou/uL (1.20-3.40); #Monocytes 0.3 thou/uL (0.11-0.59); #Neutrophils 3.9 thou/uL (1.40-6.50); %Eosinophils 1.2 % (0.0-10.0); %Lymphocytes 24.6 % (21.0-51.0); %Monocytes 4.9 % (0.0-10.0); %Neutrophils 69.4 % (42.0-75.0); Hemoglobin 7.6 g/dL (12.0-16.0); Mean Corpuscular HGB CONC 33.8 g/dL (32.0-36.0); Mean Corpuscular Volume 97.5 fl (78.0-98.0); Mean Platelet Volume 9.5 fL (7.4-10.4); Platelet Count 65 10x3/uL (130-400); RBC Distribution Width 17.6 % (11.5-14.5); Red Blood Cell (RBC) Count 2.29 mill/uL (4.20-5.40); White Blood Cell (WBC) Count 5.6 10x3/uL (4.8-10.8)
[2022-08-04] MEDS: Bisacodyl 10 MG SUPP PR SCH ×4 (05:16→21:40)
[2022-08-04 05:31] LABS: Anion Gap 13 mmol/L (10-20); BUN (Urea Nitrogen) 89 mg/dL (9.8-20.1); Calc. Creatinine Clearance 15 mL/min (70-130); Carbon Dioxide 21 mmol/L (23-31); Chloride 101 mmol/L (98-107); Estimated GFR 13; Glucose 80 mg/dL (83-110); Potassium 3.4 mmol/L (3.5-5.1); Sodium 132 mmol/L (136-145)
[2022-08-04] MEDS ORDERED: Heparin 10,000 UNITS/ 10 ML VIAL ONE (08:30)
[2022-08-04] MEDS: Pantoprazole 40 MG VIAL IVP SCH ×2 (11:33→21:44)
[2022-08-04] MEDS: Epoetin (ESRD) 10,000 UNITS/ML VIAL SC SCH (11:33)
[2022-08-04] MEDS ORDERED: Aspirin 81 mg Enteric Coated Tablet PO SCH (16:15)
[2022-08-05] MEDS: Piperacillin/Tazobactam 3.375 GM in Sodium Chloride 0.9% 100 ML IVPB SCH ×2 (03:56→15:10)
[2022-08-05] MEDS: Sodium Chloride 0.9% 1,000 ML IV SCH (03:57)
[2022-08-05 05:06] LABS: #Eosinphils 0.1 thou/uL (0.0-0.7); #Lymphocytes 1.4 thou/uL (1.20-3.40); #Monocytes 0.3 thou/uL (0.11-0.59); #Neutrophils 3.6 thou/uL (1.40-6.50); %Basophils 0.2 % (0.0-1.0); %Eosinophils 1.1 % (0.0-10.0); %Lymphocytes 25.5 % (21.0-51.0); %Monocytes 4.9 % (0.0-10.0); %Neutrophils 68.3 % (42.0-75.0); Mean Corpuscular HGB CONC 33.3 g/dL (32.0-36.0); Mean Corpuscular Hemoglobin 32.9 pg (27.0-31.0); Mean Corpuscular Volume 98.8 fl (78.0-98.0); Platelet Count 77 10x3/uL (130-400); RBC Distribution Width 17.9 % (11.5-14.5); Red Blood Cell (RBC) Count 2.43 mill/uL (4.20-5.40); White Blood Cell (WBC) Count 5.3 10x3/uL (4.8-10.8)
[2022-08-05 05:29] LABS: Anion Gap 14 mmol/L (10-20); BUN (Urea Nitrogen) 26 mg/dL (9.8-20.1); Calc. Creatinine Clearance 30 mL/min (70-130); Calcium 7.8 mg/dL (7.8-10.44); Carbon Dioxide 24 mmol/L (23-31); Chloride 105 mmol/L (98-107); Estimated GFR 29; Glucose 76 mg/dL (83-110); Potassium 3.2 mmol/L (3.5-5.1); Sodium 140 mmol/L (136-145)
[2022-08-05] MEDS: Levothyroxine Sodium 25 MCG TAB PO SCH (06:20)
[2022-08-05] MEDS: Bisacodyl 10 MG SUPP PR SCH ×3 (06:41→20:51)
[2022-08-05] MEDS: Pantoprazole 40 MG VIAL IVP SCH ×2 (09:30→20:51)
[2022-08-05] MEDS: Folic Acid 1 MG TAB PO SCH (09:30)
[2022-08-05] MEDS: Aspirin 81 mg Enteric Coated Tablet PO SCH (09:30)
[2022-08-05] MEDS ORDERED: Potassium Chloride 20 MEQ TAB PO SCH (10:45)
[2022-08-06] MEDS: Piperacillin/Tazobactam 3.375 GM in Sodium Chloride 0.9% 100 ML IVPB SCH ×2 (03:17→14:23)
[2022-08-06] MEDS: Bisacodyl 10 MG SUPP PR SCH ×3 (05:26→21:22)
[2022-08-06] MEDS: Levothyroxine Sodium 25 MCG TAB PO SCH (05:26)
[2022-08-06 05:42] LABS: ALT (SGPT) Less than 7 U/L (8-55); AST (SGOT) 14 U/L (5-34); Albumin 2.6 g/dL (3.4-4.8); Alkaline Phosphatase 38 U/L (40-110); Anion Gap 16 mmol/L (10-20); BUN (Urea Nitrogen) 27 mg/dL (9.8-20.1); Bilirubin, Total 0.8 mg/dL (0.2-1.2); Calc. Creatinine Clearance 22 mL/min (70-130); Calcium 7.6 mg/dL (7.8-10.44); Carbon Dioxide 21 mmol/L (23-31); Chloride 108 mmol/L (98-107); Estimated GFR 20; Globulin 2.2 g/dL (2.4-3.5); Glucose 71 mg/dL (83-110); Potassium 3.4 mmol/L (3.5-5.1); Protein, Total 4.8 g/dL (5.8-8.1); Sodium 142 mmol/L (136-145)
[2022-08-06 05:46] LABS: #Eosinphils 0.1 thou/uL (0.0-0.7); #Lymphocytes 1.7 thou/uL (1.20-3.40); #Monocytes 0.4 thou/uL (0.11-0.59); #Neutrophils 3.3 thou/uL (1.40-6.50); %Basophils 0.5 % (0.0-1.0); %Lymphocytes 31.2 % (21.0-51.0); %Monocytes 6.7 % (0.0-10.0); %Neutrophils 59.7 % (42.0-75.0); Hemoglobin 7.8 g/dL (12.0-16.0); Mean Corpuscular HGB CONC 34.7 g/dL (32.0-36.0); Mean Corpuscular Hemoglobin 34.9 pg (27.0-31.0); Mean Platelet Volume 8.9 fL (7.4-10.4); Platelet Count 87 10x3/uL (130-400); RBC Distribution Width 17.4 % (11.5-14.5); Red Blood Cell (RBC) Count 2.22 mill/uL (4.20-5.40); White Blood Cell (WBC) Count 5.6 10x3/uL (4.8-10.8)
[2022-08-06] MEDS ORDERED: Heparin 10,000 UNITS/ 10 ML VIAL ONE (08:33)
[2022-08-06] MEDS ORDERED: Potassium Chloride 20 MEQ TAB PO SCH (12:30)
[2022-08-06 13:15] LABS: Magnesium 1.7 mg/dL (1.6-2.6)
[2022-08-06] MEDS: Carvedilol 6.25 MG TAB PO SCH ×2 (13:52→18:25)
[2022-08-06] MEDS: Aspirin 81 mg Enteric Coated Tablet PO SCH ×2 (14:24→14:42)
[2022-08-06] MEDS: Pantoprazole 40 MG VIAL IVP SCH ×2 (14:24→21:21)
[2022-08-06] MEDS: Folic Acid 1 MG TAB PO SCH ×2 (14:24→14:42)
[2022-08-06] MEDS: Atorvastatin Calcium 20 MG TAB PO SCH (21:21)
[2022-08-07] MEDS: Piperacillin/Tazobactam 3.375 GM in Sodium Chloride 0.9% 100 ML IVPB SCH ×2 (03:34→17:17)
[2022-08-07] MEDS: Levothyroxine Sodium 25 MCG TAB PO SCH (04:54)
[2022-08-07] MEDS: Bisacodyl 10 MG SUPP PR SCH ×3 (04:55→21:28)
[2022-08-07 04:59] LABS: #Eosinphils 0.1 thou/uL (0.0-0.7); #Lymphocytes 1.9 thou/uL (1.20-3.40); #Monocytes 0.4 thou/uL (0.11-0.59); #Neutrophils 2.9 thou/uL (1.40-6.50); %Basophils 0.2 % (0.0-1.0); %Eosinophils 1.2 % (0.0-10.0); %Lymphocytes 36.1 % (21.0-51.0); %Monocytes 7.1 % (0.0-10.0); %Neutrophils 55.4 % (42.0-75.0); Hemoglobin 8.7 g/dL (12.0-16.0); Mean Corpuscular HGB CONC 31.4 g/dL (32.0-36.0); Mean Corpuscular Hemoglobin 31.8 pg (27.0-31.0); Mean Platelet Volume 8.7 fL (7.4-10.4); Platelet Count 95 10x3/uL (130-400); RBC Distribution Width 17.3 % (11.5-14.5); Red Blood Cell (RBC) Count 2.72 mill/uL (4.20-5.40); White Blood Cell (WBC) Count 5.3 10x3/uL (4.8-10.8)
[2022-08-07 05:00] LABS: Anion Gap 19 mmol/L (10-20); BUN (Urea Nitrogen) 13 mg/dL (9.8-20.1); Calc. Creatinine Clearance 28 mL/min (70-130); Calcium 7.7 mg/dL (7.8-10.44); Carbon Dioxide 22 mmol/L (23-31); Chloride 104 mmol/L (98-107); Estimated GFR 27; Glucose 72 mg/dL (83-110); Potassium 3.7 mmol/L (3.5-5.1); Sodium 141 mmol/L (136-145)
[2022-08-07 05:02] LABS: ALT (SGPT) 12 U/L (8-55); AST (SGOT) 16 U/L (5-34); Albumin 2.8 g/dL (3.4-4.8); Alkaline Phosphatase 45 U/L (40-110); Bilirubin, Direct 0.5 mg/dL (0.1-0.3); Bilirubin, Total 1.1 mg/dL (0.2-1.2); Protein, Total 5.3 g/dL (5.8-8.1)
[2022-08-07] MEDS: Aspirin 81 mg Enteric Coated Tablet PO SCH (10:26)
[2022-08-07] MEDS: Carvedilol 6.25 MG TAB PO SCH ×2 (10:26→17:17)
[2022-08-07] MEDS: Folic Acid 1 MG TAB PO SCH (10:26)
[2022-08-07] MEDS: Pantoprazole 40 MG VIAL IVP SCH ×2 (10:27→21:27)
[2022-08-07] MEDS: Acetaminophen 325 MG TAB PO PRN (10:29)
[2022-08-07] MEDS: Atorvastatin Calcium 20 MG TAB PO SCH (21:39)
[2022-08-08] MEDS: Piperacillin/Tazobactam 3.375 GM in Sodium Chloride 0.9% 100 ML IVPB SCH (02:20)
[2022-08-08 05:03] LABS: #Eosinphils 0.1 thou/uL (0.0-0.7); #Lymphocytes 1.8 thou/uL (1.20-3.40); #Monocytes 0.4 thou/uL (0.11-0.59); #Neutrophils 3.1 thou/uL (1.40-6.50); %Basophils 0.4 % (0.0-1.0); %Eosinophils 1.6 % (0.0-10.0); %Lymphocytes 32.6 % (21.0-51.0); %Monocytes 7.1 % (0.0-10.0); %Neutrophils 58.3 % (42.0-75.0); Hemoglobin 8.6 g/dL (12.0-16.0); Mean Corpuscular HGB CONC 32.3 g/dL (32.0-36.0); Mean Corpuscular Hemoglobin 32.2 pg (27.0-31.0); Mean Corpuscular Volume 99.6 fl (78.0-98.0); Platelet Count 84 10x3/uL (130-400); RBC Distribution Width 16.8 % (11.5-14.5); Red Blood Cell (RBC) Count 2.66 mill/uL (4.20-5.40); White Blood Cell (WBC) Count 5.4 10x3/uL (4.8-10.8)
[2022-08-08 05:23] LABS: Anion Gap 15 mmol/L (10-20); BUN (Urea Nitrogen) 22 mg/dL (9.8-20.1); Calc. Creatinine Clearance 18 mL/min (70-130); Calcium 7.5 mg/dL (7.8-10.44); Carbon Dioxide 22 mmol/L (23-31); Chloride 103 mmol/L (98-107); Estimated GFR 16; Glucose 100 mg/dL (83-110); Potassium 3.3 mmol/L (3.5-5.1); Sodium 137 mmol/L (136-145)
[2022-08-08] MEDS: Bisacodyl 10 MG SUPP PR SCH ×2 (05:46→13:27)
[2022-08-08] MEDS: Levothyroxine Sodium 25 MCG TAB PO SCH (05:48)
[2022-08-08] MEDS ORDERED: Heparin 10,000 UNITS/ 10 ML VIAL ONE (07:40)
[2022-08-08] MEDS: Carvedilol 6.25 MG TAB PO SCH ×2 (09:52→16:07)
[2022-08-08] MEDS: Pantoprazole 40 MG VIAL IVP SCH (09:53)
[2022-08-08] MEDS: Aspirin 81 mg Enteric Coated Tablet PO SCH (13:21)
[2022-08-08] MEDS: Folic Acid 1 MG TAB PO SCH (13:21)
[2022-08-08] MEDS: Atorvastatin Calcium 20 MG TAB PO SCH (21:20)
[2022-08-09] MEDS: Bisacodyl 10 MG SUPP PR SCH ×4 (01:10→22:26)
[2022-08-09] MEDS: Levothyroxine Sodium 25 MCG TAB PO SCH (06:10)
[2022-08-09 08:45] LABS: #Eosinphils 0.1 thou/uL (0.0-0.7); #Lymphocytes 1.8 thou/uL (1.20-3.40); #Monocytes 0.2 thou/uL (0.11-0.59); #Neutrophils 2.8 thou/uL (1.40-6.50); %Basophils 0.2 % (0.0-1.0); %Eosinophils 1.2 % (0.0-10.0); %Lymphocytes 37.2 % (21.0-51.0); %Monocytes 4.6 % (0.0-10.0); %Neutrophils 56.7 % (42.0-75.0); Hemoglobin 9.4 g/dL (12.0-16.0); Mean Corpuscular HGB CONC 32.9 g/dL (32.0-36.0); Mean Corpuscular Hemoglobin 32.3 pg (27.0-31.0); Mean Corpuscular Volume 98.3 fl (78.0-98.0); Platelet Count 89 10x3/uL (130-400); RBC Distribution Width 16.8 % (11.5-14.5); Red Blood Cell (RBC) Count 2.92 mill/uL (4.20-5.40); White Blood Cell (WBC) Count 4.9 10x3/uL (4.8-10.8)
[2022-08-09 08:48] LABS: Anion Gap 10 mmol/L (10-20); BUN (Urea Nitrogen) 11 mg/dL (9.8-20.1); Calc. Creatinine Clearance 23 mL/min (70-130); Carbon Dioxide 28 mmol/L (23-31); Chloride 103 mmol/L (98-107); Estimated GFR 21; Glucose 85 mg/dL (83-110); Potassium 3.4 mmol/L (3.5-5.1); Sodium 138 mmol/L (136-145)
[2022-08-09] MEDS: Aspirin 81 mg Enteric Coated Tablet PO SCH (09:41)
[2022-08-09] MEDS: Folic Acid 1 MG TAB PO SCH (09:41)
[2022-08-09] MEDS: Carvedilol 25 MG TAB PO SCH (09:41)
[2022-08-09] MEDS ORDERED: Potassium Chloride 20 MEQ TAB PO SCH (12:45)
[2022-08-09] MEDS ORDERED: Carvedilol 6.25 MG TAB PO SCH (16:30)
[2022-08-09] MEDS: Atorvastatin Calcium 20 MG TAB PO SCH (22:23)
[2022-08-10 04:15] LABS: #Eosinphils 0.1 thou/uL (0.0-0.7); #Lymphocytes 1.9 thou/uL (1.20-3.40); #Monocytes 0.3 thou/uL (0.11-0.59); #Neutrophils 3.1 thou/uL (1.40-6.50); %Basophils 0.8 % (0.0-1.0); %Eosinophils 1.5 % (0.0-10.0); %Lymphocytes 34.8 % (21.0-51.0); %Monocytes 5.5 % (0.0-10.0); %Neutrophils 57.4 % (42.0-75.0); Hemoglobin 8.9 g/dL (12.0-16.0); Mean Corpuscular HGB CONC 32.3 g/dL (32.0-36.0); Mean Corpuscular Hemoglobin 31.6 pg (27.0-31.0); Mean Platelet Volume 9.3 fL (7.4-10.4); Platelet Count 99 10x3/uL (130-400); RBC Distribution Width 16.6 % (11.5-14.5); Red Blood Cell (RBC) Count 2.81 mill/uL (4.20-5.40); White Blood Cell (WBC) Count 5.4 10x3/uL (4.8-10.8)
[2022-08-10 04:45] LABS: Anion Gap 16 mmol/L (10-20); BUN (Urea Nitrogen) 19 mg/dL (9.8-20.1); Calc. Creatinine Clearance 17 mL/min (70-130); Carbon Dioxide 21 mmol/L (23-31); Chloride 102 mmol/L (98-107); Estimated GFR 15; Glucose 111 mg/dL (83-110); Potassium 3.9 mmol/L (3.5-5.1); Sodium 135 mmol/L (136-145)
[2022-08-10] MEDS: Levothyroxine Sodium 25 MCG TAB PO SCH (06:49)
[2022-08-10] MEDS: Bisacodyl 10 MG SUPP PR SCH ×3 (06:52→20:55)
[2022-08-10] MEDS: Acetaminophen 325 MG TAB PO PRN (08:45)
[2022-08-10] MEDS: Carvedilol 25 MG TAB PO SCH ×2 (09:20→17:28)
[2022-08-10] MEDS: Aspirin 81 mg Enteric Coated Tablet PO SCH (09:21)
[2022-08-10] MEDS ORDERED: Heparin 10,000 UNITS/ 10 ML VIAL ONE (13:54)
[2022-08-10] MEDS: Folic Acid 1 MG TAB PO SCH (15:26)
[2022-08-10] MEDS: Atorvastatin Calcium 20 MG TAB PO SCH (20:55)
[2022-08-11 05:12] LABS: Hep B Surface AG-Rflx Sendout Negative (Negative); Hepatitis B Core Total Negative (Negative); Hepatitis B Surface AB-Sendout Non Reactive (.)
[2022-08-11] MEDS: Bisacodyl 10 MG SUPP PR SCH ×4 (05:39→23:49)
[2022-08-11] MEDS: Levothyroxine Sodium 25 MCG TAB PO SCH (05:58)
[2022-08-11] MEDS: Carvedilol 25 MG TAB PO SCH ×2 (08:29→17:33)
[2022-08-11] MEDS: Folic Acid 1 MG TAB PO SCH (08:29)
[2022-08-11] MEDS: Aspirin 81 mg Enteric Coated Tablet PO SCH (08:29)
[2022-08-11] MEDS: Epoetin (ESRD) 10,000 UNITS/ML VIAL SC SCH (10:07)
[2022-08-11] MEDS: Atorvastatin Calcium 20 MG TAB PO SCH (20:43)
[2022-08-12] MEDS: Levothyroxine Sodium 25 MCG TAB PO SCH (05:34)
[2022-08-12] MEDS: Carvedilol 25 MG TAB PO SCH ×2 (08:21→17:53)
[2022-08-12] MEDS: Folic Acid 1 MG TAB PO SCH (08:21)
[2022-08-12] MEDS: Aspirin 81 mg Enteric Coated Tablet PO SCH (08:21)
[2022-08-12] MEDS: Bisacodyl 10 MG SUPP PR SCH ×2 (12:28→21:05)
[2022-08-12] MEDS: Atorvastatin Calcium 20 MG TAB PO SCH (20:20)
[2022-08-12] MEDS: Acetaminophen 325 MG TAB PO PRN (20:21)
[2022-08-13] MEDS: Bisacodyl 10 MG SUPP PR SCH ×3 (05:13→22:07)
[2022-08-13] MEDS: Levothyroxine Sodium 25 MCG TAB PO SCH (05:15)
[2022-08-13 06:20] LABS: #Lymphocytes 2.2 thou/uL (1.20-3.40); #Monocytes 0.3 thou/uL (0.11-0.59); #Neutrophils 2.8 thou/uL (1.40-6.50); %Basophils 0.3 % (0.0-1.0); %Eosinophils 0.9 % (0.0-10.0); %Monocytes 5.8 % (0.0-10.0); Hemoglobin 8.6 g/dL (12.0-16.0); Mean Corpuscular HGB CONC 33.2 g/dL (32.0-36.0); Mean Corpuscular Hemoglobin 31.6 pg (27.0-31.0); Mean Platelet Volume 8.7 fL (7.4-10.4); Platelet Count 115 10x3/uL (130-400); RBC Distribution Width 16.5 % (11.5-14.5); Red Blood Cell (RBC) Count 2.72 mill/uL (4.20-5.40); White Blood Cell (WBC) Count 5.4 10x3/uL (4.8-10.8)
[2022-08-13 06:47] LABS: Anion Gap 13 mmol/L (10-20); BUN (Urea Nitrogen) 52 mg/dL (9.8-20.1); Calc. Creatinine Clearance 15 mL/min (70-130); Carbon Dioxide 25 mmol/L (23-31); Chloride 99 mmol/L (98-107); Estimated GFR 13; Glucose 88 mg/dL (83-110); Potassium 3.6 mmol/L (3.5-5.1); Sodium 133 mmol/L (136-145)
[2022-08-13] MEDS: Aspirin 81 mg Enteric Coated Tablet PO SCH (08:41)
[2022-08-13] MEDS: Acetaminophen 325 MG TAB PO PRN ×2 (08:41→20:34)
[2022-08-13] MEDS: Folic Acid 1 MG TAB PO SCH (08:41)
[2022-08-13] MEDS: hydrALAZINE 25 MG TAB PO SCH ×3 (08:42→20:34)
[2022-08-13] MEDS: Carvedilol 25 MG TAB PO SCH ×2 (08:42→18:09)
[2022-08-13] MEDS ORDERED: Heparin 10,000 UNITS/ 10 ML VIAL ONE (10:09)
[2022-08-13] MEDS: Atorvastatin Calcium 20 MG TAB PO SCH (20:34)
[2022-08-14] MEDS: Levothyroxine Sodium 25 MCG TAB PO SCH (05:20)
[2022-08-14] MEDS: Bisacodyl 10 MG SUPP PR SCH ×3 (05:21→21:38)
[2022-08-14] MEDS: Acetaminophen 325 MG TAB PO PRN ×3 (08:09→21:30)
[2022-08-14] MEDS: Carvedilol 25 MG TAB PO SCH ×2 (08:10→17:31)
[2022-08-14] MEDS: hydrALAZINE 25 MG TAB PO SCH ×3 (08:10→21:30)
[2022-08-14] MEDS: Folic Acid 1 MG TAB PO SCH (08:10)
[2022-08-14] MEDS: Aspirin 81 mg Enteric Coated Tablet PO SCH (08:10)
[2022-08-14] MEDS: Atorvastatin Calcium 20 MG TAB PO SCH (21:30)
[2022-08-15] MEDS: Levothyroxine Sodium 25 MCG TAB PO SCH (05:54)
[2022-08-15] MEDS: Bisacodyl 10 MG SUPP PR SCH ×4 (05:59→20:38)
[2022-08-15] MEDS: Carvedilol 25 MG TAB PO SCH ×2 (08:21→16:18)
[2022-08-15] MEDS: hydrALAZINE 25 MG TAB PO SCH ×3 (08:21→20:34)
[2022-08-15 08:44] LABS: #Eosinphils 0.1 thou/uL (0.0-0.7); #Lymphocytes 2.7 thou/uL (1.20-3.40); #Monocytes 0.4 thou/uL (0.11-0.59); #Neutrophils 2.8 thou/uL (1.40-6.50); %Basophils 0.7 % (0.0-1.0); %Eosinophils 2.1 % (0.0-10.0); %Monocytes 6.3 % (0.0-10.0); %Neutrophils 45.9 % (42.0-75.0); Hemoglobin 9.5 g/dL (12.0-16.0); Mean Corpuscular HGB CONC 33.3 g/dL (32.0-36.0); Mean Corpuscular Volume 96.2 fl (78.0-98.0); Mean Platelet Volume 8.8 fL (7.4-10.4); Platelet Count 175 10x3/uL (130-400); RBC Distribution Width 16.2 % (11.5-14.5); Red Blood Cell (RBC) Count 2.97 mill/uL (4.20-5.40); White Blood Cell (WBC) Count 6.1 10x3/uL (4.8-10.8)
[2022-08-15 08:57] LABS: Anion Gap 13 mmol/L (10-20); BUN (Urea Nitrogen) 57 mg/dL (9.8-20.1); Calc. Creatinine Clearance 16 mL/min (70-130); Calcium 8.3 mg/dL (7.8-10.44); Carbon Dioxide 24 mmol/L (23-31); Chloride 97 mmol/L (98-107); Estimated GFR 13; Glucose 83 mg/dL (83-110); Potassium 3.6 mmol/L (3.5-5.1); Sodium 130 mmol/L (136-145)
[2022-08-15] MEDS ORDERED: Heparin 10,000 UNITS/ 10 ML VIAL ONE (11:09)
[2022-08-15] MEDS: Aspirin 81 mg Enteric Coated Tablet PO SCH (13:27)
[2022-08-15] MEDS: Folic Acid 1 MG TAB PO SCH (13:27)
[2022-08-15] MEDS: Atorvastatin Calcium 20 MG TAB PO SCH (20:35)
[2022-08-16] MEDS: Levothyroxine Sodium 25 MCG TAB PO SCH (05:12)
[2022-08-16] MEDS: Bisacodyl 10 MG SUPP PR SCH ×3 (05:38→22:04)
[2022-08-16] MEDS: Folic Acid 1 MG TAB PO SCH (09:46)
[2022-08-16] MEDS: Aspirin 81 mg Enteric Coated Tablet PO SCH (09:46)
[2022-08-16] MEDS: hydrALAZINE 25 MG TAB PO SCH (11:32)
[2022-08-16] MEDS: Carvedilol 25 MG TAB PO SCH ×3 (15:23→19:15)
[2022-08-16] MEDS: Atorvastatin Calcium 20 MG TAB PO SCH (21:55)
[2022-08-17] MEDS: Bisacodyl 10 MG SUPP PR SCH ×3 (04:39→21:55)
[2022-08-17] MEDS: Levothyroxine Sodium 25 MCG TAB PO SCH (06:02)
[2022-08-17] MEDS: Carvedilol 25 MG TAB PO SCH (07:52)
[2022-08-17] MEDS ORDERED: Carvedilol 25 MG TAB PO SCH (08:04)
[2022-08-17] MEDS: Aspirin 81 mg Enteric Coated Tablet PO SCH (08:29)
[2022-08-17] MEDS: Folic Acid 1 MG TAB PO SCH (08:29)
[2022-08-17] MEDS: Carvedilol 6.25 MG TAB PO SCH ×2 (08:35→17:02)
[2022-08-17] MEDS ORDERED: Heparin 10,000 UNITS/ 10 ML VIAL ONE (08:57)
[2022-08-17] MEDS: Acetaminophen 325 MG TAB PO PRN (13:50)
[2022-08-17] MEDS: Atorvastatin Calcium 20 MG TAB PO SCH (21:55)
[2022-08-18] MEDS: Acetaminophen 325 MG TAB PO PRN (02:08)
[2022-08-18] MEDS: Bisacodyl 10 MG SUPP PR SCH ×3 (05:42→21:19)
[2022-08-18] MEDS: Levothyroxine Sodium 25 MCG TAB PO SCH (05:45)
[2022-08-18 06:37] LABS: #Eosinphils 0.1 thou/uL (0.0-0.7); #Lymphocytes 3.3 thou/uL (1.20-3.40); #Monocytes 0.5 thou/uL (0.11-0.59); #Neutrophils 2.7 thou/uL (1.40-6.50); %Basophils 0.2 % (0.0-1.0); %Eosinophils 1.3 % (0.0-10.0); %Lymphocytes 49.9 % (21.0-51.0); %Monocytes 8.2 % (0.0-10.0); %Neutrophils 40.4 % (42.0-75.0); Hemoglobin 10.8 g/dL (12.0-16.0); Mean Corpuscular HGB CONC 33.6 g/dL (32.0-36.0); Mean Corpuscular Hemoglobin 32.7 pg (27.0-31.0); Mean Corpuscular Volume 97.4 fl (78.0-98.0); Mean Platelet Volume 8.4 fL (7.4-10.4); Platelet Count 191 10x3/uL (130-400); RBC Distribution Width 16.3 % (11.5-14.5); White Blood Cell (WBC) Count 6.6 10x3/uL (4.8-10.8)
[2022-08-18 06:55] LABS: Anion Gap 15 mmol/L (10-20); BUN (Urea Nitrogen) 38 mg/dL (9.8-20.1); Calc. Creatinine Clearance 19 mL/min (70-130); Calcium 8.2 mg/dL (7.8-10.44); Carbon Dioxide 24 mmol/L (23-31); Chloride 98 mmol/L (98-107); Estimated GFR 17; Glucose 97 mg/dL (83-110); Potassium 3.4 mmol/L (3.5-5.1); Sodium 134 mmol/L (136-145)
[2022-08-18] MEDS ORDERED: Heparin 10,000 UNITS/ 10 ML VIAL ONE (09:03)
[2022-08-18] MEDS: Folic Acid 1 MG TAB PO SCH (09:21)
[2022-08-18] MEDS: Carvedilol 6.25 MG TAB PO SCH ×2 (09:21→16:26)
[2022-08-18] MEDS: Aspirin 81 mg Enteric Coated Tablet PO SCH (09:21)
[2022-08-18] MEDS ORDERED: EPOETIN ALFA-EPBX (ESRD) 10,000 UNIT/ML VIAL SC SCH (10:00)
[2022-08-18] MEDS: Atorvastatin Calcium 20 MG TAB PO SCH (21:19)
[2022-08-19] MEDS: Bisacodyl 10 MG SUPP PR SCH ×3 (05:04→20:05)
[2022-08-19] MEDS: Levothyroxine Sodium 25 MCG TAB PO SCH (05:04)
[2022-08-19] MEDS: Folic Acid 1 MG TAB PO SCH (08:22)
[2022-08-19] MEDS: Aspirin 81 mg Enteric Coated Tablet PO SCH (08:22)
[2022-08-19] MEDS: Carvedilol 6.25 MG TAB PO SCH ×2 (08:22→16:12)
[2022-08-19] MEDS: Acetaminophen 325 MG TAB PO PRN (20:04)
[2022-08-19] MEDS: Atorvastatin Calcium 20 MG TAB PO SCH (20:04)
[2022-08-20] MEDS: Bisacodyl 10 MG SUPP PR SCH ×4 (06:02→20:53)
[2022-08-20] MEDS: Folic Acid 1 MG TAB PO SCH (08:43)
[2022-08-20] MEDS: Aspirin 81 mg Enteric Coated Tablet PO SCH (08:43)
[2022-08-20] MEDS: Carvedilol 6.25 MG TAB PO SCH ×2 (08:44→16:43)
[2022-08-20] MEDS: Acetaminophen 325 MG TAB PO PRN ×2 (08:46→16:37)
[2022-08-20] MEDS: Levothyroxine Sodium 25 MCG TAB PO SCH (08:47)
[2022-08-20] MEDS ORDERED: Dicyclomine 10 MG CAP PO SCH (09:45)
[2022-08-20] MEDS: Dicyclomine 10 MG CAP PO SCH ×3 (12:53→20:52)
[2022-08-20] MEDS: Atorvastatin Calcium 20 MG TAB PO SCH (20:52)
[2022-08-21] MEDS: Levothyroxine Sodium 25 MCG TAB PO SCH (06:28)
[2022-08-21] MEDS: Dicyclomine 10 MG CAP PO SCH ×4 (08:22→20:55)
[2022-08-21] MEDS: Carvedilol 6.25 MG TAB PO SCH ×2 (08:22→17:58)
[2022-08-21] MEDS: Aspirin 81 mg Enteric Coated Tablet PO SCH (08:22)
[2022-08-21] MEDS: Folic Acid 1 MG TAB PO SCH (08:22)
[2022-08-21] MEDS ORDERED: Heparin 10,000 UNITS/ 10 ML VIAL ONE (10:13)
[2022-08-21] MEDS: Acetaminophen 325 MG TAB PO PRN (13:10)
[2022-08-21] MEDS: Bisacodyl 10 MG SUPP PR SCH ×2 (15:56→20:56)
[2022-08-21] MEDS: Atorvastatin Calcium 20 MG TAB PO SCH (20:55)
[2022-08-22] MEDS: Levothyroxine Sodium 25 MCG TAB PO SCH (05:39)
[2022-08-22] MEDS: Carvedilol 6.25 MG TAB PO SCH (08:52)
[2022-08-22] MEDS: Dicyclomine 10 MG CAP PO SCH ×2 (08:53→13:56)
[2022-08-22] MEDS: Folic Acid 1 MG TAB PO SCH (08:53)
[2022-08-22] MEDS: Aspirin 81 mg Enteric Coated Tablet PO SCH (08:53)
[2022-08-22] MEDS: Acetaminophen 325 MG TAB PO PRN (09:06)
[2022-08-22] MEDS: Bisacodyl 10 MG SUPP PR SCH (14:02)
[2022-08-22 15:36] VITALS: BP 123/55; TEMP 97.4
== END 2022-08-22 16:33 | DRG 368 ==
LOC: ERS 08:37 → SDC 13:43 → 2NO 14:07 → T4-B 08-10 15:05
PROVIDERS: ADMIT Family Medicine; ATTEND Family Medicine
PROC: 0DJ08ZZ Inspection of Upper Intestinal Tract, Via Natural or Artificial Opening Endoscopic (ICD-10-PCS; principal; 2022-08-02)
PROC: 0D9670Z Drainage of Stomach with Drainage Device, Via Natural or Artificial Opening (ICD-10-PCS; 2022-08-02)
PROC: 8E0ZXY6 Isolation (ICD-10-PCS; 2022-08-02)
PROC: 30233N1 Transfusion of Nonautologous Red Blood Cells into Peripheral Vein, Percutaneous Approach (ICD-10-PCS; 2022-08-03)
PROC: 5A1D70Z Performance of Urinary Filtration, Intermittent, Less than 6 Hours Per Day (ICD-10-PCS; 2022-08-04)
DX: K21.01 Gastro-esophageal reflux disease with esophagitis, with bleeding (principal); G93.41 Metabolic encephalopathy; K29.01 Acute gastritis with bleeding; N18.6 End stage renal disease; U07.1 COVID-19; I21.A1 Myocardial infarction type 2; J12.82 Pneumonia due to coronavirus disease 2019; I13.2 Hypertensive heart and chronic kidney disease with heart failure and with stage 5 chronic kidney disease, or end stage renal disease; E87.1 Hypo-osmolality and hyponatremia; I50.32 Chronic diastolic (congestive) heart failure; D62 Acute posthemorrhagic anemia; D63.1 Anemia in chronic kidney disease; E03.9 Hypothyroidism, unspecified; E78.5 Hyperlipidemia, unspecified; E87.6 Hypokalemia; I25.10 Atherosclerotic heart disease of native coronary artery without angina pectoris; K59.00 Constipation, unspecified; E11.22 Type 2 diabetes mellitus with diabetic chronic kidney disease; Z96.649 Presence of unspecified artificial hip joint; I27.20 Pulmonary hypertension, unspecified; D69.6 Thrombocytopenia, unspecified; N83.201 Unspecified ovarian cyst, right side; K80.20 Calculus of gallbladder without cholecystitis without obstruction; K44.9 Diaphragmatic hernia without obstruction or gangrene; E78.00 Pure hypercholesterolemia, unspecified; N28.89 Other specified disorders of kidney and ureter; E66.01 Morbid (severe) obesity due to excess calories; Z68.38 Body mass index [BMI] 38.0-38.9, adult; Z99.2 Dependence on renal dialysis; Z79.899 Other long term (current) drug therapy; Z79.890 Hormone replacement therapy; Z79.82 Long term (current) use of aspirin; Z82.49 Family history of ischemic heart disease and other diseases of the circulatory system; I25.2 Old myocardial infarction
CPT/HCPCS: 36415; 36430; 71045; 74018; 74177; 80048; 80053; 80076; 81003; 81015; 82550; 82553; 83605; 83690; 83735; 84484; 85025; 85610; 85730; 86704; 86706; 86850; 86900; 86901; 87040; 87340; 90935; 93005; 93010; 94760; 96374; 96375; 97139; C9113; G0257; J0692; J1644; J2354; J2405; J2543; J3370-JW; J3490; J7050; P9016; Q4081; Q5105; Q9967; U0002

== ENCOUNTER 2022-09-19 11:16 | Inpatient (IN) | payer MEDICARE, OTHER ==
[2022-09-19 11:41] LABS: #Eosinphils 0.1 thou/uL (0.0-0.7); #Lymphocytes 3.9 thou/uL (1.20-3.40); #Monocytes 0.6 thou/uL (0.11-0.59); %Basophils 0.2 % (0.0-1.0); %Eosinophils 0.6 % (0.0-10.0); %Lymphocytes 26.7 % (21.0-51.0); %Monocytes 3.8 % (0.0-10.0); %Neutrophils 68.7 % (42.0-75.0); Hemoglobin 10.2 g/dL (12.0-16.0); Mean Corpuscular HGB CONC 32.7 g/dL (32.0-36.0); Mean Corpuscular Hemoglobin 32.7 pg (27.0-31.0); Mean Platelet Volume 8.1 fL (7.4-10.4); Platelet Count 248 10x3/uL (130-400); RBC Distribution Width 14.2 % (11.5-14.5); White Blood Cell (WBC) Count 14.6 10x3/uL (4.8-10.8)
[2022-09-19] MEDS ORDERED: Iopamidol-370 76% 500 ML 1 ML ONE (11:51)
[2022-09-19] MEDS ORDERED: Cefepime 2 GM VIAL ONE (11:57)
[2022-09-19] MEDS ORDERED: Dexamethasone 4 mg/ml Vial ONE (11:57)
[2022-09-19 12:02] LABS: ALT (SGPT) 18 U/L (8-55); AST (SGOT) 38 U/L (5-34); Albumin 2.3 g/dL (3.4-4.8); Alkaline Phosphatase 100 U/L (40-110); Anion Gap 16 mmol/L (10-20); BUN (Urea Nitrogen) 15 mg/dL (9.8-20.1); Bilirubin, Total 1.4 mg/dL (0.2-1.2); CK (CPK) 19 U/L (29-168); Calc. Creatinine Clearance 0 mL/min (70-130); Carbon Dioxide 23 mmol/L (23-31); Chloride 98 mmol/L (98-107); Estimated GFR 33; Globulin 2.9 g/dL (2.4-3.5); Glucose 139 mg/dL (83-110); Lipase 10 U/L (8-78); Potassium 4.4 mmol/L (3.5-5.1); Protein, Total 5.2 g/dL (5.8-8.1); Sodium 133 mmol/L (136-145)
[2022-09-19 12:10] LABS: Bacteria/HPF 4+ HPF (None Seen); Bilirubin Negative (Negative); Blood, Urine Negative (Negative); Clarity Turbid (Clear); Glucose, Urine (Dipstick) Normal (Negative); Ketone, Urine Negative (Negative); Leukocyte 250 Leu/uL (Negative); Nitrite Negative (Negative); Protein, Urine (Dipstick) 70 mg/dL (Neg-Trace); RBC/HPF 0-3 HPF (0-3); Specific Gravity, Urine 1.016 (1.002-1.036); Squamous Epithelial 0-3 HPF (0-3); Urobilinogen Normal mg/dL (Less than 2); pH, Urine 7.5 (5.0-9.0)
[2022-09-19 12:39] LABS: SARS-CoV-2 NAA Rapid Test Not Detected (NotDetected)
[2022-09-19] MEDS ORDERED: Vancomycin 1 GM/200 ML (FROZEN) BAG ONE (12:55)
[2022-09-19] MEDS ORDERED: Ondansetron ODT 4 MG TAB ONE (13:11)
[2022-09-19] MEDS ORDERED: Senokot S 8.6-50 MG TAB PO PRN (13:25)
[2022-09-19] MEDS ORDERED: Acetaminophen 325 MG TAB PO PRN (13:25)
[2022-09-19] MEDS ORDERED: Ondansetron PF 4 MG/2 ML Vial IVP PRN (13:25)
[2022-09-19] MEDS ORDERED: Calcium Carbonate 500 MG ChewTAB PO PRN (13:25)
[2022-09-19] MEDS ORDERED: Midodrine HCl 5 MG TAB PO SCH (13:30)
[2022-09-19] MEDS ORDERED: Sodium Chloride 0.9% 1,000 ML IV SCH (14:00)
[2022-09-19 15:27] LABS: Lactic Acid 3.1 mmol/L (0.5-2.2)
[2022-09-19] MEDS ORDERED: Heparin 10,000 UNITS/ 10 ML VIAL ONE (15:49)
[2022-09-19] MEDS: Heparin 5,000 UNITS/ML VIAL SC SCH ×2 (17:09→23:07)
[2022-09-19] MEDS ORDERED: Bisacodyl 5 MG TAB PO PRN (18:06)
[2022-09-19 21:42] LABS: Lactic Acid 6.2 mmol/L (0.5-2.2)
[2022-09-19 23:06] LABS: Hemoglobin 10.4 g/dL (12.0-16.0); Mean Corpuscular HGB CONC 32.1 g/dL (32.0-36.0); Mean Corpuscular Hemoglobin 33.1 pg (27.0-31.0); Mean Platelet Volume 8.7 fL (7.4-10.4); Platelet Count 187 10x3/uL (130-400); RBC Distribution Width 14.6 % (11.5-14.5); Red Blood Cell (RBC) Count 3.16 mill/uL (4.20-5.40); White Blood Cell (WBC) Count 18.6 10x3/uL (4.8-10.8)
[2022-09-19] MEDS: Midodrine HCl 5 MG TAB PO SCH (23:07)
[2022-09-19] MEDS: Atorvastatin Calcium 10 MG TAB PO SCH (23:07)
[2022-09-19 23:08] LABS: Actual Bicarbonate (HCO3a) 20.5 mEq/L (22-28); Base Excess (BEa) -0.7 mEq/L (-2.0 to +3.0); Calcium, Ionized (arterial) 1.02 mmol/L (1.12-1.30); Carboxyhemoglobin (COHb) 0.9 gm% (0.0-3.0); Hemoglobin (Hb) 10.7 g/dL (12.0-16.0); O2 Tension (PaO2), arterial 89.3 mmHg (> 60.0); Potassium - ABG Lab 3.77 mmol/L (3.70-5.30); pH, Arterial 7.55 (7.35-7.45)
[2022-09-19 23:14] LABS: Puncture Site LRA
[2022-09-19 23:15] LABS: ALV-art Gradient 30.555 mmHg (0-20)
[2022-09-19 23:22] LABS: ALT (SGPT) 14 U/L (8-55); AST (SGOT) 24 U/L (5-34); Albumin 2.1 g/dL (3.4-4.8); Alkaline Phosphatase 82 U/L (40-110); Anion Gap 16 mmol/L (10-20); BUN (Urea Nitrogen) 23 mg/dL (9.8-20.1); Bilirubin, Total 1.3 mg/dL (0.2-1.2); Calc. Creatinine Clearance 0 mL/min (70-130); Calcium 7.2 mg/dL (7.8-10.44); Carbon Dioxide 18 mmol/L (23-31); Chloride 105 mmol/L (98-107); Estimated GFR 30; Globulin 2.3 g/dL (2.4-3.5); Glucose 104 mg/dL (83-110); Protein, Total 4.4 g/dL (5.8-8.1); Sodium 135 mmol/L (136-145)
[2022-09-19 23:27] LABS: Anisocytosis SLIGHT = 6-15 cells (100X) (0-5/hpf); Band 28 % (5-11); Eosinophils 2 % (0-10); Lymphocytes 11 % (21-51); MDiff Complete? YES; Macrocytosis MODERATE=16-30 cells (100X) (0-5/hpf); Monocytes 1 % (0-10); Neutrophil 58 % (42-75); Ovalocytes SLIGHT = 2-5 cells (100X) (0-1/hpf); Platelet Morphology Comment Appears Adequate; Polychromasia SLIGHT = 2-3 cells (100X) (0-2/hpf)
[2022-09-19] MEDS ORDERED: Cefepime 1 GM in Sodium Chloride 0.9% 100 ML IVPB SCH (23:59)
[2022-09-20 01:19] VITALS: BMI 31.8
[2022-09-20 04:42] LABS: Lactic Acid 4.1 mmol/L (0.5-2.2)
[2022-09-20 04:50] LABS: ALT (SGPT) 13 U/L (8-55); AST (SGOT) 21 U/L (5-34); Albumin 1.9 g/dL (3.4-4.8); Alkaline Phosphatase 71 U/L (40-110); Anion Gap 18 mmol/L (10-20); Anisocytosis SLIGHT = 6-15 cells (100X) (0-5/hpf); BUN (Urea Nitrogen) 27 mg/dL (9.8-20.1); Band 27 % (5-11); Bilirubin, Total 1.1 mg/dL (0.2-1.2); Calc. Creatinine Clearance 29 mL/min (70-130); Carbon Dioxide 15 mmol/L (23-31); Chloride 105 mmol/L (98-107); Estimated GFR 27; Globulin 1.9 g/dL (2.4-3.5); Glucose 120 mg/dL (83-110); Hemoglobin 9.3 g/dL (12.0-16.0); Hypochromia SLIGHT = 6-15 cells (100X) (0-5/hpf); Lymphocytes 13 % (21-51); MDiff Complete? YES; Macrocytosis MODERATE=16-30 cells (100X) (0-5/hpf); Mean Corpuscular HGB CONC 31.4 g/dL (32.0-36.0); Mean Corpuscular Hemoglobin 32.7 pg (27.0-31.0); Mean Platelet Volume 8.9 fL (7.4-10.4); Monocytes 3 % (0-10); Neutrophil 57 % (42-75); Ovalocytes SLIGHT = 2-5 cells (100X) (0-1/hpf); Platelet Count 160 10x3/uL (130-400); Platelet Morphology Comment Appears Adequate; Polychromasia SLIGHT = 2-3 cells (100X) (0-2/hpf); Potassium 4.1 mmol/L (3.5-5.1); Protein, Total 3.8 g/dL (5.8-8.1); RBC Distribution Width 14.6 % (11.5-14.5); Red Blood Cell (RBC) Count 2.86 mill/uL (4.20-5.40); Sodium 134 mmol/L (136-145); White Blood Cell (WBC) Count 17.6 10x3/uL (4.8-10.8)
[2022-09-20 04:58] LABS: Calcium 6.7 mg/dL (7.8-10.44)
[2022-09-20] MEDS ORDERED: Calcium Gluc 4.6 MEQ/10 ML (100 MG/ML) SLOW IVP SCH (05:04)
[2022-09-20 07:24] LABS: Lactic Acid 4.2 mmol/L (0.5-2.2)
[2022-09-20] MEDS ORDERED: Heparin 10,000 UNITS/ 10 ML VIAL ONE (08:41)
[2022-09-20] MEDS ORDERED: Folic Acid 1 MG TAB PO SCH (09:00)
[2022-09-20] MEDS ORDERED: Aspirin 81 mg Enteric Coated Tablet PO SCH (09:00)
[2022-09-20] MEDS ORDERED: Calcitriol 0.25 MCG CAP PO SCH (09:00)
[2022-09-20] MEDS: Heparin 5,000 UNITS/ML VIAL SC SCH ×3 (09:18→23:14)
[2022-09-20] MEDS: Midodrine HCl 5 MG TAB PO SCH ×3 (09:18→22:00)
[2022-09-20] MEDS ORDERED: Vancomycin Diaylsis Sliding Scale (Wt 71-99) FS SCH (11:00)
[2022-09-20 12:48] LABS: HBSAB Concentration Less than 8.00 mIU/mL; Hep B Surf AB Non-Reactive (NonReactive); Hep B Surf Ag Non-Reactive S/CO (NonReactive)
[2022-09-20] MEDS ORDERED: Vancomycin 1 GM in Premix Bag 1 BAG IVPB SCH (17:00)
[2022-09-20] MEDS: Atorvastatin Calcium 10 MG TAB PO SCH (21:59)
[2022-09-20] MEDS ORDERED: Bisacodyl 10 MG SUPP PR PRN (22:29)
[2022-09-20] MEDS ORDERED: Cefepime 1 GM in Sodium Chloride 0.9% 100 ML IVPB SCH (23:00)
[2022-09-20 23:19] LABS: Calcium, Ionized (arterial) 1.02 mmol/L (1.12-1.30); Carboxyhemoglobin (COHb) 0.8 gm% (0.0-3.0); Hemoglobin (Hb) 11.6 g/dL (12.0-16.0); O2 Tension (PaO2), arterial 67.8 mmHg (> 60.0); Potassium - ABG Lab 3.84 mmol/L (3.70-5.30); pH, Arterial 7.52 (7.35-7.45)
[2022-09-20] MEDS ORDERED: metroNIDAZOLE 500 MG in Premix Bag 1 BAG IVPB SCH (23:59)
[2022-09-21 00:11] LABS: Hemoglobin 10.4 g/dL (12.0-16.0); Mean Corpuscular HGB CONC 31.9 g/dL (32.0-36.0); Mean Platelet Volume 8.9 fL (7.4-10.4); Platelet Count 183 10x3/uL (130-400); RBC Distribution Width 14.5 % (11.5-14.5); Red Blood Cell (RBC) Count 3.15 mill/uL (4.20-5.40); White Blood Cell (WBC) Count 19.5 10x3/uL (4.8-10.8)
[2022-09-21 00:16] LABS: ALT (SGPT) 15 U/L (8-55); AST (SGOT) 28 U/L (5-34); Albumin 1.9 g/dL (3.4-4.8); Alkaline Phosphatase 81 U/L (40-110); Anion Gap 23 mmol/L (10-20); BUN (Urea Nitrogen) 29 mg/dL (9.8-20.1); Bilirubin, Total 1.3 mg/dL (0.2-1.2); Calc. Creatinine Clearance 27 mL/min (70-130); Calcium 7.5 mg/dL (7.8-10.44); Carbon Dioxide 14 mmol/L (23-31); Chloride 104 mmol/L (98-107); Estimated GFR 25; Globulin 2.4 g/dL (2.4-3.5); Glucose 84 mg/dL (83-110); Potassium 4.1 mmol/L (3.5-5.1); Protein, Total 4.3 g/dL (5.8-8.1); Sodium 137 mmol/L (136-145)
[2022-09-21 00:41] LABS: Band 25 % (5-11); Lymphocytes 13 % (21-51); MDiff Complete? YES; Monocytes 2 % (0-10); Neutrophil 60 % (42-75)
[2022-09-21 00:48] VITALS: BP 99/54; TEMP 97.3
[2022-09-21] MEDS ORDERED: Sodium Bicarb 50 MEQ/50 ML Abboject 8.4% SYRINGE ONE (03:11)
[2022-09-21] MEDS ORDERED: EPINEPHrine 1 MG/10 ML Abboject SYRINGE ONE (03:11)
[2022-09-21] MEDS ORDERED: Atropine Sulfate 1 mg/10 ml Syringe ONE (03:11)
[2022-09-21 04:01] LABS: Base Excess (BEa) -20.4 mEq/L (-2.0 to +3.0); CO2 Tension 27.7 mmHg (35.0-45.0); Calcium, Ionized (arterial) 1.03 mmol/L (1.12-1.30); O2 Tension (PaO2), arterial 128.2 mmHg (> 60.0); Potassium - ABG Lab 5.51 mmol/L (3.70-5.30)
[2022-09-21 04:03] LABS: Actual Bicarbonate (HCO3a) 8.1 mEq/L (22-28); pH, Arterial 7.08 (7.35-7.45)
[2022-09-21 04:04] LABS: Puncture Site RRA
[2022-09-21 04:05] LABS: ALV-art Gradient 550.175 mmHg (0-20)
[2022-09-21 09:36] LABS: CO2 Tension 23.9 mmHg (35.0-45.0)
[2022-09-21 09:38] LABS: CO2 Tension 21.1 mmHg (35.0-45.0)
[2022-09-23] MEDS ORDERED: FLU VACC QS2022-23(65YR UP)/PF 240 MCG/0.7 ML SYRINGE IM ONE (01:45)
== END 2022-09-21 04:10 | disposition expired | DRG 871 ==
LOC: ERS 11:16 → SUATTDRO 11:16 → ERHOLD 13:14 → 2NO 20:10 → CCU 09-21 03:51
PROVIDERS: ADMIT Internal Medicine; ATTEND Internal Medicine
PROC: 5A12012 Performance of Cardiac Output, Single, Manual (ICD-10-PCS; principal; 2022-09-19)
PROC: 0BH17EZ Insertion of Endotracheal Airway into Trachea, Via Natural or Artificial Opening (ICD-10-PCS; 2022-09-19)
PROC: 5A1935Z Respiratory Ventilation, Less than 24 Consecutive Hours (ICD-10-PCS; 2022-09-19)
PROC: 0D9670Z Drainage of Stomach with Drainage Device, Via Natural or Artificial Opening (ICD-10-PCS; 2022-09-19)
PROC: 3E033XZ Introduction of Vasopressor into Peripheral Vein, Percutaneous Approach (ICD-10-PCS; 2022-09-19)
PROC: 3E03329 Introduction of Other Anti-infective into Peripheral Vein, Percutaneous Approach (ICD-10-PCS; 2022-09-19)
PROC: 5A1D70Z Performance of Urinary Filtration, Intermittent, Less than 6 Hours Per Day (ICD-10-PCS; 2022-09-20)
DX: A41.9 Sepsis, unspecified organism (principal); N17.0 Acute kidney failure with tubular necrosis; N18.6 End stage renal disease; N39.0 Urinary tract infection, site not specified; E87.20 Acidosis, unspecified; E87.1 Hypo-osmolality and hyponatremia; I50.32 Chronic diastolic (congestive) heart failure; I13.2 Hypertensive heart and chronic kidney disease with heart failure and with stage 5 chronic kidney disease, or end stage renal disease; I46.9 Cardiac arrest, cause unspecified; E03.9 Hypothyroidism, unspecified; Z20.822 Contact with and (suspected) exposure to COVID-19; K59.09 Other constipation; D63.1 Anemia in chronic kidney disease; K20.90 Esophagitis, unspecified without bleeding; E66.9 Obesity, unspecified; E83.51 Hypocalcemia; E78.5 Hyperlipidemia, unspecified; I25.10 Atherosclerotic heart disease of native coronary artery without angina pectoris; R65.20 Severe sepsis without septic shock; F41.9 Anxiety disorder, unspecified; E88.09 Other disorders of plasma-protein metabolism, not elsewhere classified; T18.2XXA Foreign body in stomach, initial encounter; Z99.2 Dependence on renal dialysis; Z79.82 Long term (current) use of aspirin; Z79.899 Other long term (current) drug therapy; Z68.31 Body mass index [BMI] 31.0-31.9, adult; Z23 Encounter for immunization; Z78.1 Physical restraint status
CPT/HCPCS: 36415; 36600; 70450; 71045; 74177; 80053; 81003; 81015; 82140; 82550; 82805; 83605; 83690; 83880; 84145; 84443; 84484; 85025; 86706; 87040; 87077; 87086; 87186; 87340; 90935; 93005; G0257; J0171; J0461; J0610; J0692; J1100; J1644; J3370-JW; J3490; J7050; Q0162; Q9967